=== PATIENT | male | born 1950 | race Caucasian/White ===

== ENCOUNTER 2019-03-01 08:36 | Inpatient (IN) | payer MEDICARE ==
[2019-03-01] MEDS: fentaNYL* 50 MCG/ML 2 ML VIAL (100 MCG VIAL) IV SLOW PU ONE ×2 (08:45→09:00)
--- OUTSIDE RECORDS SUMMARY | 2019-03-01 09:29 | XMS REPORT | Continuity of Care Document ---
:1950 External Reference #:[id number] Author Name David Cm MD Address [address] [place] [address] Care Team Providers Name Role Phone David Cm MD - Family Care Team Information Polysomnographic Technician Medicine Problems Description No Information Available Social History Type Date Description Comments Sex Unknown ETOH Use Denies alcohol use Tobacco Use Start: Unknown End: Unknown Patient is a former smoker Smoking Status Reviewed: 01/11/19 Patient is a former smoker Allergies, Adverse Reactions, Alerts Description No Known Drug Allergies Medications Active Medications SIG Qnty Indications Ordering Provider Date Gabapentin 1 by mouth three Unknown 100mg Capsules times a day Coreg take 1 tablet by Unknown 25mg Tablets mouth twice a day Quinapril HCL 2 by mouth every Unknown 10mg Tablets day Radicava Unknown 30mg/100ML Solution Amitriptyline HCL take 2 tablets by Unknown 50mg mouth at bedtime Tablets Intravenous Unknown Imminoglobulin/Gamma Globulin Riluzole twice daily for Unknown 50mg Tablets ALS Immunizations Description No Information Available Vital Signs Date Vital Result Comment 01/11/2019 2:45pm BP Systolic 130 mmHg BP Diastolic 90 mmHg Heart Rate 86 /min Body Temperature 98.4 F Respiratory Rate 16 /min Height 72.25 inches 6'0.25" Weight 166.00 lb BMI (Body Mass Index) 22.4 kg/m2 Results Description No Information Available Procedures Date Code Description Status 03/07/2009 69013193 Colonoscopy Completed Medical Devices Description No Information Available Encounters Description No Information Available Assessments Date Code Description Provider 01/11/2019 G12.21 Amyotrophic lateral sclerosis David Cm MD 01/11/2019 I10 Essential (primary) hypertension David Cm MD Plan of Treatment 01/11/2019 - David Cm MDG12.21 Amyotrophic lateral [id number] Essential (primary) hypertensionAllComments:Medication Management Patient Understands medications he's taking? Yes No Are there Barriersto Adherence? Yes No Has the patient been asked about herbal supplements and therapies, and OTC meds? Yes No Functional Status Description No Information Available Mental Status Description No Information Available Referrals Refer to Reason for Referral Status Appt Date Panda Perez MD Consult and treat ALS. Referral faxed. LT Created 2018 [address] [place] [address] [place] [address] [phone]
--- OUTSIDE RECORDS SUMMARY | 2019-03-01 09:29 | XMS REPORT | Continuity of Care Document ---
:1950 External Reference #:[id number] Author Name Panda Perez M.D. (transmitted by agent of provider Dione Colon) Address [address] [facility], [place] [address] Care Team Providers Name Role Phone David Cm MD - Family Care Team Information Customer Support Associate [phone] Medicine Problems Description No Information Available Social History Type Date Description Comments Sex Unknown ETOH Use Denies alcohol use ETOH Use Occasionally consumed alcohol in the past Tobacco Use Start: Unknown End: Patient is a former smoker quit in 1984 Unknown Smoking Status Reviewed: 02/12/19 Patient is a former smoker quit in 1984 Allergies, Adverse Reactions, Alerts Description No Known Drug Allergies Medications Active Medications SIG Qnty Indications Ordering Date Provider Accupril daily Unknown 10mg Tablets Coreg 1 by mouth Unknown 25mg Tablets twice a day Gamunex-C infuse 40gm Panda S. 10GM/100ML daily x 2days Earnestine Perez Solution every 3 weeks Riluzole 1 by mouth 60tabs Panda S. 50mg Tablets twice a day Earnestine Perez Vitamin B12 1 by mouth Unknown 100mcg every day Tablets Vitamin B-6 1 by mouth Unknown 50mg three times a Tablets week Vitamin D3 Complete 1,000units a Unknown day Tablets Gabapentin 1 capsule two Unknown 100mg times daily. Capsules Radicava infuse every 14 10daysupply Panda S. 30mg/100ML days, 10 day Earnestine Perez Solution dose, then 14 days off, then repeat Amitriptyline HCL 1 by mouth Unknown 50mg twice a day Tablets Immunizations Description No Information Available Vital Signs Date Vital Result Comment 02/12/2019 9:22am Height 73 inches 6'1" Weight 165.00 lb Heart Rate 84 /min BP Systolic 118 mmHg BP Diastolic 76 mmHg BMI (Body Mass Index) 21.8 kg/m2 Results Description No Information Available Procedures Description No Information Available Medical Devices Description No Information Available Encounters Description No Information Available Assessments Date Code Description Provider 02/12/2019 G12.21 Amyotrophic lateral sclerosis Panda Perez M.D. Plan of Treatment Future Appointment(s):03/30/2019 9:45 am - Panda Perez M.D. at [facility]/12/2019 - Panda Perez M.D.G12.21 Amyotrophic lateral sclerosisFollow up:copy EMG's, lab and spinal fluid results, all MRI's continue radicava, IVIG need to switch to me aspresciber 6-10 weeks Functional Status Description No Information Available Mental Status Description No Information Available Referrals Description No Information Available
--- OUTSIDE RECORDS SUMMARY | 2019-03-01 09:29 | XMS REPORT | Summary of Care ---
:1950 Author Organization [facility] Address [address] [place] [address] Care Team Providers Name Role Phone David Cm MD Primary Care Provider Reason for Referral Radiation Therapy (Routine) Status Reason Specialty Diagnoses / Referred By Contact Referred To Procedures Contact Authorized Radiology Diagnoses Amyotrophic lateral sclerosis Ross Escobarosina I, Procedures EMG with Nerve Conduction [address] [place] [id number] Email: [email or web address] Reason for Visit Radiation Therapy (Routine) Status Reason Specialty Diagnoses / Referred By Contact Referred To Procedures Contact Authorized Radiology Diagnoses Amyotrophic lateral sclerosis Shawn Eufrosina I, Procedures EMG with Nerve Conduction [address] [place] [address] Email: [email or web address] Encounter Details Date Type Department Care Team Description 02/21/2019 Hospital Encounter [facility] Pino Santana Amyotrophic lateral Neurophysiology at [facility] [address] [address] [place] [address] [phone] Allergies No Known Allergiesdocumented as of this encounter (statuses as of 02/25/2019) Medications Medication Sig Dispensed Refills Start Date End Date Status Gabapentin 100 MG Oral Take 100 mg by 0 Active Capsule (NEURONTIN) mouth Two Times Daily Riluzole 50 MG Oral Take 50 mg by 0 Active Tablet (RILUTEK) mouth every 12 (twelve) hours Carvedilol 25 MG Oral Take 25 mg by 0 Active Tablet (COREG) mouth Two times daily with meals Quinapril HCl 10 MG Take 10 mg by 0 Active Oral Tablet (ACCUPRIL) mouth daily Gabapentin 400 MG Oral Take 400 mg by 0 Active Capsule (NEURONTIN) mouth nightly Immune Globulin Inject into the 0 Active (Human) 10 GM/100ML vein once Injection Solution (GAMUNEX-C) Amitriptyline HCl 50 Take 50 mg by 0 Active MG Oral Tablet mouth Two Times (ELAVIL) Daily Edaravone 30 MG/100ML Inject 60 mg into 0 Active Intravenous Solution the vein once Pt (RADICAVA) injects bags at once per pts procotcol documented as of this encounter (statuses as of 02/25/2019) Active Problems Problem Noted Date Amyotrophic lateral sclerosis 02/09/2019 Raynaud's phenomenon with gangrene 02/09/2019 Neuropathy 02/09/2019 Lyme disease 02/09/2019 Mixed hyperlipidemia 02/09/2019 Paresthesia 02/09/2019 documented as of this encounter (statuses as of 02/25/2019) Social History Tobacco Use Types Packs/Day Years Used Date Former Smoker Cigarettes 1 Quit: 1987 Smokeless Tobacco: Never Used Alcohol Use Drinks/Week oz/Week Comments Yes very rarely Alcohol Habits Answer Date Recorded How often do you have a drink containing alcohol? Monthly or less 02/14/2019 How many drinks containing alcohol do you have on a 1 or 2 02/14/2019 typical day when you are drinking? How often do you have six or more drinks on one Never 02/14/2019 occasion? Sex Assigned at Date Recorded Not on file Job Start Date Occupation Industry Not on file Not on file Not on file Travel History Travel Start Travel End No recent travel history available. documented as of this encounter Last Filed Vital Signs Not on filedocumented in this encounter Plan of Treatment Date Type Specialty Care Team Description 04/18/2019 Office Visit Neurology Name Type Priority Associated Diagnoses Order Schedule EMG with Nerve Neurology Routine Amyotrophic lateral As Needed for 1 Conduction sclerosis Occurrences starting 02/21/2019 until 02/21/2019 Health Maintenance Due Date Last Done Comments Hepatitis C Screening (B. 1950 4940-6300) MMR Vaccines (1 of 1 - Standard 1951 series) Varicella Vaccines (1 of 2 - 1951 2-dose childhood series) DTaP,Tdap,and Td Vaccines (1 - 1958 Tdap) Colon Cancer Screening 10 yrs 2001 Zoster Vaccines (1 of 2) 2001 Pneumococcal Vaccine: 65+ Years (1 2016 of 2 - PCV13) Influenza Vaccine 12/05/2018 HIB Vaccines Aged Out No longer eligible based on patient's age to complete this topic Hepatitis A Vaccines Aged Out No longer eligible based on patient's age to complete this topic Hepatitis B Vaccines Aged Out No longer eligible based on patient's age to complete this topic IPV Vaccines Aged Out No longer eligible based on patient's age to complete this topic Pneumococcal Vaccine: Pediatrics Aged Out No longer eligible based on (0 to 5 Years) and At-Risk patient's age to complete this Patients (6 to 64 Years) topic documented as of this encounter Results Not on filedocumented in this encounter Visit Diagnoses Diagnosis Amyotrophic lateral sclerosis documented in this encounter
--- OUTSIDE RECORDS SUMMARY | 2019-03-01 09:29 | XMS REPORT | Continuity of Care Document ---
:1950 Author Organization [facility] Address [address] [facility] [address] [place] [address] Phone Care Team Providers Name Role Phone Jaguar Giordano MD Unavailable Unavailable Allergies, Adverse Reactions, Alerts Substance Reaction Status Criticality No Known Allergies Active No Information Medications Medication Instructions Dosage Effective Dates Status Comments (start - stop) gabapentin 400 mg take 1 capsule by 400 MG - Active !! Check capsule oral route 3 times [employer] every day Pricing: BIN #: [id number] Group #: [id number] Card #: [id number] PCN:FW Coreg 25 mg tablet take 1 tablet by 25 MG - Active !! Check oral route 2 times [employer] every day with food Pricing: BIN #: [id number] Group #: [id number] Card #: [id number] PCN:FW Accupril 20 mg take 1 tablet by 20 MG - Active !! Check tablet oral route every [employer] day Pricing: BIN #: [id number] Group #: [id number] Card #: [id number] PCN:FW Problems Condition Effective Dates (start - Clinical Status Comments stop) Radiculopathy, site unspecified Hypertensive disorder Active Cardiomyopathy Active Procedures Procedure Date No Information Results Test Name Date and Time Measure Units Reference Range Abnormal Flag Status Comments No Information Advance Directives Directive Yes / No Effective Date File Name No Information Encounters Encounter Practice Location Reason(s) Diagnoses Date Provider Providers Description For Visit Copied on Encounter [place] [facility] No Nov- [facility] [address] [facility] [address] [facility], [address] [facility], [address] [id number], [address], . Noé, tel:+01 [place], [phone], [id number] [place] tel:[phone] [place] Adult Radiculopath Oct- [facility]erring [facility], site [address] Provider: Health Disease unspecified [address] [facility], [address], [place], [address] [place], [address] [facility], [address] [facility] [id number], [address], [place] [address], [place], tel:+15 [place], [phone], [id number]. [place] tel:73 tel:[phone] Family History Family Member Diagnosis Age At Onset No Information Immunizations Vaccine Date Status Comments No Information Payers Payer name Insurance type Covered libertarian ID Authorization(s) [facility] [id number] MEDICARE NGS MB [id number] Social History Type Description Quantity Date Captured Comments Alcohol Use Details Unknown Caffeine Use Details Unknown Tobacco Use Status No Information Smoking Status No Information Sex Male Vital Signs Date / Height Weight BMI Pulse Blood Temperature Respiratory Body Head BMI Pulse Inhaled Time: Rate Pressure Rate Surface Circumference percentile [place] Area No Information Chief Complaint And Reason For Visit No Information Reason For Referral Reason For Referral No Information Plan Of Treatment Date Type Action Status No Information History Of Present Illness Encounter Date Complaint History Of Present Illness No Information Functional Status Date Functional Assessment No Information Medications Administered Medication Instructions Dosage Effective Dates (start - stop) Status Comments No Information Instructions Date Instruction Additional Information No Information Assessments Type Assessment Date No Information Goals Health Concern Goal Type Priority Status Date No Information Medical Equipment Description Device [place] Device Identifier Effective Dates (start - stop ) Status No Information Mental Status Date Cognitive Assessment No Information Health Concerns Observation Date No Information Concern Status Date No Information Physical Examination Exam Findings Details No Information
--- OUTSIDE RECORDS SUMMARY | 2019-03-01 09:29 | XMS REPORT | Summary of Care ---
:1950 Author Organization [facility] Address [address] [place] [address] Care Team Providers Name Role Phone David Cm MD Primary Care Provider Reason for Referral Occupational Therapy (Routine) Status Reason Specialty Diagnoses / Referred By Contact Referred To Contact Procedures Authorized Diagnoses Amyotrophic lateral sclerosis Isa Escobar I, Pmr Occupational Procedures Occupational Therapy Therapy [address] [place] [id number] [address] Email: [email or web address] Radiation Therapy (Routine) Status Reason Specialty Diagnoses / Referred By Contact Referred To Procedures Contact Authorized Radiology Diagnoses Amyotrophic lateral sclerosis Isa Escobar I, Procedures EMG with Nerve Conduction [address] [place] [address] Email: [email or web address] Home Health Care (Routine) Status Reason Specialty Diagnoses / Referred By Referred To Procedures Contact Contact Open Specialty Home Health Diagnoses Amyotrophic lateral sclerosis Isa Escobar Services Services MD Radha Required [address] [place] [address] Email: [email or web address] Procedure/Treatment (Routine) Status Reason Specialty Diagnoses / Referred By Contact Referred To Contact Procedures Authorized Diagnoses Amyotrophic lateral sclerosis Neurology Isa Escobar I, Procedures Spirometry (Includes Flow Volume Loop) Provider-Based [facility] [address] [place], [address] [place] [address] [place] [address] Email: [email or web address] Reason for Visit Reason Comments New Patient Encounter Details Date Type Department Care Team Description 02/14/2019 Office Visit [facility] Neurology at Isa Escobar I, Amyotrophic [facility] sclerosis (Primary Center [address]) [address], [address] [place] [address] [place] [phone] [phone] Allergies No Known Allergiesdocumented as of this encounter (statuses as of 02/20/2019) Medications Medication Sig Dispensed Refills Start Date [...] as of this encounter (statuses as of 02/20/2019) Active Problems Problem Noted Date Amyotrophic lateral sclerosis 02/09/2019 Raynaud's phenomenon with gangrene 02/09/2019 Neuropathy 02/09/2019 Lyme disease 02/09/2019 Mixed hyperlipidemia 02/09/2019 Paresthesia 02/09/2019 documented as of this encounter (statuses as of 02/20/2019) Social History Tobacco Use Types Packs/Day Years [...] of this encounter Last Filed Vital Signs Vital Sign Reading Time Taken Comments Blood Pressure 124/73 02/14/2019 8:44 AM EST Pulse 94 02/14/2019 8:44 AM EST Temperature - - Respiratory Rate - - Oxygen Saturation - - Inhaled Oxygen Concentration - - Weight 74.8 kg (164 lb 12.8 oz) 02/14/2019 8:44 AM EST Height 182.9 cm (6') 02/14/2019 8:44 AM EST Body Mass Index 22.35 02/14/2019 8:44 AM EST documented in this encounter Patient Instructions Patient InstructionsIsa Escobar MD - 02/14/2019 8:30 AM ESTEMG as urgent study Referral to Home Care for PT, OT, Home health aide, safety evaluation Referral to Occupational Therapy for Power Mobility Device Return 1 month 12: 10 PM EST documented in this encounter Progress Notes Isa Escobar MD - 02/14/2019 8:30 AM EST ALS Multidisciplinary Clinic 68 year old male presents for initial evaluation. He came in alone.The patient was referred by Kim Zhang MD ( Neurologist from [facility] ) and PCP David Cm ( [place], [place]). He recently moved from [place], [place] to [place], [place]. He carries a diagnosis of ALS, CIDP and Lyme disease, and either completed or currently receiving treatment for all diagnosis. He has continued to progress with motor weakness in 4 limbs, worse on right foot. He has no bulbar impairment and no respiratory issues. Clinical onset of symptoms Allow me to summarize his history for my record. Extensive records were reviewed. At 67 years of age (March 2017 ), the patient presented with right leg weakness with right foot tripping and dragging. He denies low back pain. This was preceded with severe burning pain tingling numbness sensation that started in the right foot without low back pain or lumbar radicular pain. Soon after he developed severe painful paresthesias in both feet, right worse than left, for which He sawa vascular surgeon (due to feet swelling) who told him his problem was not vascular but "neurological". He established care with Dr. Juan Pablo Zhang in March 2017. He was treated with Gabapentin which afforded significant relief and the dysesthesias improved considerably with Gabepentin. Right foot weakness that was detected on exam. He continued to follow up with Dr. Zhang for a year without much change in symptoms during which time he had an MRI of lumbar spine endorsed to be normal. He had EMG Nerve Conduction Study from Apr 10 ( "sensory neuropathy in upper limbs" ) and Apr 27, 2018 ( active Right L5 S1 and chronic bilateral L5 S1 Radiculopathy ). He was diagnosed with "peripheralneuropathy likely alcohol- related" with long history of Etoh abuse ( alcohol use was described as " 1bottle of wine daily" ). He reports discontinuation of alcohol use in 2016. Exam was described as "wasting and fasciculations in right calf and right anterior compartment, right medial gastrocnemius and right tibialis anterior, with diffuse hyporeflexia, decreased pinprick in both feet, decreased vibratory sense. He was diagnosed with Peripheral Neuropathy and Acute Right L5-S1 Lumbosacral radiculopathy and Chronic bilateral L5 S1 Radiculopathy by Dr. Zhang. At this point, he was seen by neurosurgery ( not able to locate this note ) which he endorsed as "surgery was not likely to be helpful". Symptoms of lower extremity weakness progressed after this visit and he returned to Dr. Zhang in June 2018. Exam was notable for wasting of right medial gastrocnemius and right tibialis anterior muscles, with diminished pinprick sensation in both feet, impaired vibratory sense and diffuse hyporeflexia. The dose of Gabapentin was increased to 300 mg-300 mg-400 mg with significant relief. Repeat EMG September 22, [address] Zhang report: Right peroneal nerve slowed conduction velocity, Right tibial nerve temporal dispersion, prolonged F waves with multiple A waves, relative sural sparing,no conduction block in ulnar nerves, fibrillations and positive sharp wves present only in distal muscles of right leg. I personally reviewed the tables (DML upper limbs 2.9 - 3.9 msec, DML lower limbs3.8 - 5.1 msec. CV upper limbs 49-57 m/sec, CV lower limbs 30 - 44 m/sec ) Right tibial and Right Peroneal low amplitudes ( 1 mV ) with temporal dispersion. September 29, [address] Randall Real, Neuromuscular Director, for second opinion. He could no longer manage long hikes and started using a cane to ambulate. Both feet were numb although hands felt strong. October 2018, he had diffuse muscle twitches and weakness was describe to spread to all limbs ( exam showed 4's ). Repeat EMG ( September 2018, Dr. Zhang ) showed slowed conduction velocity, temporal dispersion, prolonged F waves, and a mixed axonal demyelinating polyneuropathy. Spinal tap was performed, reported to have albuminocytologic dissociation with elevated CSF protein. November 2018 Dr. Real exam was notable for right arm atrophy. The diagnosis of ALS was made by Dr. Real. October 2018 he also saw a Dr. [place] ( his sister's Lyme disease doctor ). The diagnosis of Chronic Lyme Disease was made by Dr. Dubois. He was treated with oral Doxycycline and 6 weeks of Ciprofloxacin IV which he completed by end of November,. November 2018 he followed up with Dr. Zhang. 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 Zhang. He was treated with IVIG for 5 days. By end of treatment he was having multiple falls and could not ambulate with a cane and required a walker. He was started on IV Edaravone in November, received 4th roundof treatment without significant fatigue or headache. He reports mild eczema or dry skin he attributes to Edaravone. January 2019, he reports the right foot was paralyzed despite above treatments received. He has been using a walker since November 2018 and reports numerous falls with increasing right upper and right lower limb weakness. He lives alone. The last few days in February 2019, he has difficulty with his underwriting support manager, to the degree that he is unable to grab a pillow for example. He continues with left arm fasciculations and some weakness in the left lower extremity ( which he gauged was affected "10%- 20% ). Other testing: October 2018 CSF from October 2018 showed no WBC, 3 RBC, Glucose 52 and elevated Protein 66 ( cut off 45 ). Serum Lyme IgG/IgM AB elevated. Lyme PHOTO EQUIPMENT TECHNICIAN infection IgG was reactive, followed with serum sample reflexed for sampling to determine PHOTO EQUIPMENT TECHNICIAN infection. CSF positive lyme index ( 1.79 With normal range 0.01 - 0.89 ) was reported and led to antibiotic treatment outlined below. Labs Jan 2018 ESR, CRP, Sjogren's antibody, B12 normal range Labs October 2018 GQ1B AB negative, GM1 antibody negative Neuroimaging studies: MRI cervical spine September 10, 2018 reportedly showed cervical spondylosis, no cord signal abnormalities. MRI Thoracic Spine showed scoliosis. MRI brain Dec 05, 2018 showed non-specific [id number] signal focus in right frontal subcortical region. Treatments received: Riluzole 50 mg twice daily started in October 2018, continued Edaravone infusions started in Nov 2018, continued. IVIG for 5 days started November 2018, followed with maintenance treatment 2 days a week, last received Feb.08 and 2018. Oral Doxycycline and 6 weeks of Ciprofloxacin IV completed by end of November,. 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 Additional history include idiopathic cardiomyopathy and fall off ladder in 2002 with right calcaneal heel fracture, Chronic Lyme disease with tick exposure and positive serum TRISH ( but not treated due to absence of symptoms ) . CSF positive lyme index ( 1.79 ) ALS FRSR SPEECH 4 Normal speech process 3 Detectable speech disturbance 2 Intelligible with repeating 1 Speech combined with non-vocal communication 0 Loss of useful speech SALIVATION 4 Normal 3 Slight but definite excess of saliva in mouth; may have night time drooling 2 Moderately excessive saliva; may have minimal drooling 1 Marked excess of saliva with some drooling 0 Marked drooling SWALLOWING 4 Normal eating habits 3 Early eating problems occasional choking 2 Dietary consistency changes 1 Needs supplemental tube feeding 0 NPO HANDWRITING 4 Normal 3 Slow or sloppy: all words are legible 2 Not all words are legible 1 No words are legible, but can still underwriting support manager pen 0 Unable to underwriting support manager pen CUTTING FOOD AND HANDLING UTENSILS: Patients without gastrostomy 4 Normal 3 Somewhat slow and clumsy, but no help needed 2 Can cut most foods (> 50%), although slow and clumsy; some help needed 1 Food must be cut by someone, but can still feed slowly 0 Needs to be fed DRESSING AND HYGIENE 4 Normal function 3 Independent; Can complete self-care with effort or decreased efficiency 2 Intermittent assistance or substitute methods 1 Needs attendant for self-care 0 Total dependence TURNING IN BED AND ADJUSTING BED CLOTHES 4 Normal function 3 Somewhat slow and clumsy, but no help needed 2 Can turn alone, or adjust sheets, but with great difficulty 1 Can initiate, but not turn or adjust sheets alone 0 Helpless WALKING 4 Normal 3 Early ambulation difficulties 2 Walks with assistance ( walker ) 1 Non-ambulatory functional movement only 0 No purposeful leg movement CLIMBING STAIRS 4 Normal 3 Slow 2 Mild unsteadiness or fatigue 1 Needs assistance 0 Cannot do DYSPNOEA 4 None 3 Occurs when walking 2 Occurs with one or more of the following: eating, bathing, dressing 1 Occurs at rest: difficulty breathing when either sitting or lying 0 Significant difficulty: considering using mechanical respiratory support ORTHOPNOEA 4 None 3 Some difficulty sleeping at night due to shortness of breath, does not routinely use more than twopillows 2 Needs extra pillows in order to sleep (more than two) 1 Can only sleep sitting up 0 Unable to sleep without mechanical assistance RESPIRATORY INSUFFICIENCY 4 None 3 Intermittent use of BiPAP 2 Continuous use of BiPAP during the night 1 Continuous use of BiPAP during day & night 0 Invasive mechanical ventilation by intubation or tracheostomy Bulbar domain=12 Motor domain=17 Respiratory domain=12 Revised ALS Functional Rating Scale (ALSFRS-R) total score=41/48 Pseudobulbar Affect He denies inappropriate laughing or inappropriate crying Constipation He has consistent bowel movement of adequate volume. Patient denies dysuria, urinary hesitancy or urinary retention, but has urgency to urinate. Familly history of ALS: Absent Family history of Dementia: Absent Family history of use of assistive device for ambulation Absent He has 2 sons that live out of state. His is in petroleum terminal plant operator care facility with AD the last 3 years. Past Medical History: Diagnosis Date Hypertension No past surgical history on file. No family history on file. Social History Socioeconomic History Marital status: Spouse name: None Number of children: None Years of education: None Highest education level: None Occupational History None Social Needs Financial resource strain: None Food insecurity: Worry: None Inability: None Transportation needs: Medical: None Non-medical: None Tobacco Use Smoking status: Former Smoker Packs/day: 1.00 Types: Cigarettes Last attempt to quit: 1987 Years since quittin.9 Smokeless tobacco: Never Used Substance and Sexual Activity Alcohol use: Yes Frequency: Monthly or less Drinks per session: 1 or 2 Binge frequency: Never Comment: very rarely Drug use: Not Currently Types: Marijuana Comment: has smoked marijuana in past Sexual activity: Not Currently Lifestyle Physical activity: Days per week: None Minutes per session: None Stress: None Relationships Social connections: Talks on phone: None Gets together: None Attends rastafarian service: None Active member of club or organization: None Attends meetings of clubs or organizations: None Relationship status: None Intimate partner violence: Fear of current or ex partner: None Emotionally abused: None Physically abused: None Forced sexual activity: None Other Topics Concern None Social History Narrative None Current Outpatient Medications Medication Sig Dispense Refill Carvedilol 25 MG Oral Tablet (COREG) Take 25 mg by mouth Two times daily with meals Gabapentin 100 MG Oral Capsule (NEURONTIN) Take 300 mg by mouth Two Times Daily Gabapentin 400 MG Oral Capsule (NEURONTIN) Take 400 mg by mouth nightly Immune Globulin (Human) 10 GM/100ML Injection Solution (GAMUNEX-C) Inject into the vein once Quinapril HCl 10 MG Oral Tablet (ACCUPRIL) Take 10 mg by mouth daily Riluzole 50 MG Oral Tablet (RILUTEK) Take 50 mg by mouth every 12 (twelve ) hours No current facility-administered medications for this visit. ALLERGY:No Known Allergies ROS: 10 Point review of systems done and pertinent negative noted in HPI. GENERAL EXAM: Visit Vitals Ht 1.829 m (6') Wt 74.8 kg (164 lb 12.8 oz) BMI 22.35 kg/m PHYSICAL EXAM: 1) CONSTITUTIONAL: alert, appears stated age and cooperative The patient's general appearance is thin. 2) HEENT: Head is atraumatic. The oropharynx is moist with no leukoplakia on the tongue. Hearing is intact to finger rubs. 3) RESPIRATORY: Assessment of the patient's respiratory effort reveals no use of accessory neck muscles. 4) CARDIAC: Auscultation of heart sounds reveal normal rate and regular rhythm. There is no lower extremity edema. 5) PSYCHIATRIC:The patient's present mood is calm and affect is observed as normal. 6)SKIN:The skin of demonstrates no ecchymoses, no petechiae, some eczematous rash in forearms. NEUROLOGICAL EXAMINATION: today FVC SITTIN % predicted FVC SUPINE: 116 % predicted WEIGHT: 164 lbs. Mental Status:Alert, oriented, thought content appropriate Cranial Nerves: Fundus: no papilledema. VFF, EOMI, PERRL. No facial asymmetry. [place], pterygoid strength, orbicularis oculi and alejandra strength intact Hearing intact to finger rubs. Tongue: Movements are intact. There is no atrophy and no fasciculations. Speech: Intact fluency, repetition and comprehension. MOTOR EXAM: Bulk: atrophy in the right arm and right leg. Fasciculations:fasciculations involving the upper extremities Muscle tone is flaccid weakness in right upper and right lower limbs Deltoid Biceps Triceps WE WF FE FF IO APB Shoulder Flexion Right 3 4 4 5 5 5 5 3 3 3 Left 4 5 5 5 5 5 5 5 5 4 Hip flexion Quads TA Ankle evertors Ankle invertors Gastroc Hamstrings Hip Abduction Hip Adduction Right 3 3 1 0 0 3 5 Left 4 4 3 3 3 5 5 Sensory Right upper Left upper Pinprick intact intact Right lower Left lower Pinprick Diminished from toes to ankle Diminished from toes to ankle Vibratory Sense Decreased >12 sec, right great toe, ankle 6 seconds right great toe, ankle Proprioception intact intact Reflexes: Right Left Biceps 4 2 BR 4 2 Triceps 2 2 Patellar 2 1 Achilles 4 1 Babinski Absent Absent Right Left Ignacio Sign absent absent Crossed Adductor Reflex absent absent Palmomental Reflex absent absent Jaw jerk: normal CEREBELLAR: no tremor GAIT: slow, unsteady, used right AFO, right foot drags Assessment and Plan: Limb- onset ALS vs CIDP 68 year old male with progressive motor weakness and wasting, predominant lower motor neuron involvement, with 2 year onset and accelerated decline the past 6 months. There is impending loss of ambulation starting with use of cane in September 2018, and walker the past 2 weeks. There is spread of weakness from right leg to right arm, and essentially quadriparesis, despite numerous treatments pursued for a variety of diagnoses over the last 4 months ( Riluzole, Edaravone , IVIG, IV Ciprofloxacin ) most ofwhich have continued ( Riluzole, Edaravone, IVIG ). The diagnosis is complicated with initial sensory changes that pre-dated motor weakness in the rightfoot. Exam is also notable for sensory findings. Review of EMGs from September 2018 however does not seemconvincing for a primary demyelinating process. There is evidence both clinically and electrophysiologically of a progressive process. At this point I had an extensive discussion with Mr. Guerrero, how ALS is diagnosed after exclusion ofmimics, which in this case requires a repeat EMG. We agreed on the following: EMG as urgent study scheduled 02/21/[address] Santana Referral to Home Care for PT, OT, Home health aide, safety evaluation Referral to Occupational Therapy for Power Mobility Device Return 1 month - Ambulation and safety issues We discussed PT and OT recommendations Face to Face Evaluation for Power Mobility Device Patient is not ambulatory and cannot independently propel an optimally configured manual wheelchair.She requires a power wheelchair for independent mobility. Power seating is necessary as she cannot independently reposition or weight shift. Symptoms and diagnosis that limit ambulation: progressive weakness in bilateral lower extremities Diagnoses responsible for these symptoms: ALS Medications or other treatments for these symptoms: Riluzole, Edaravone Progression of ambulation difficulty over time:yes How far can the patient walk without stopping: Unable Pace of ambulation: Not applicable What ambulatory assistance does the patient presently use: Unsafe with or without ambulatory devices Specific conditions that prevent patient from propelling a manual wheelchair Upper extremity weakness Upper extremity fatigue Imbalance What has changed to now require the use of a power mobility device: Disease progression Ability to stand up from a seated position without assistance: unable to do the following Push-up Pull-up Assisted Description of the home setting and ability to perform mobility related activities of daily living (toileting, cooking, access to sink) Vendor to supply measurements of home access points Please describe why a scooter will not meet patients need: Scooter would not supply seating and positioning stability (Generally, turning radius too large for home use) Patient requires power chair (tilt, recline, elevating leg rests) -patient at high risk for skin breakdown: Tilt: Unable to perform functional weight shift, Spasticity, impaired trunk control Recline: Respiratory compromise, requires open hip angle Power elevating leg rest: Lower extremity edema, allows for passive ROM to reduce spasticity As treating physician, I concur with the associated letter of medical necessary for a power mobilitydevice. -We also discussed the need for more home services, which we will help with as much as possible. Today the patient had a [id number] assessment for amyotrophic lateral sclerosis (ALS), which is the primary reason for home health care. I certify that based on clinical findings, Physical therapy, Occupational therapy, and a Home primary care provider are medically necessary home health services. Clinical findings that support the need for home health services include four limb weaknesses, unable to stand, transfer, or walk without assistance, bilateral upper limb weakness, difficulty putting on clothes independently and performing activities of daily living. Further, I certify that the clinical findings support this patient is homebound because absences from home require considerable and taxing effort and are for medical reasons, infrequent, or of short duration for other reasons because the patient is unable to walk. Furthermore, discussion on advance care plan including end of life options and establishment of surrogate decision maker was done. Advance directives was encouraged and assistance offered to ensure that this is in place. Advance directives are not yet in place. The patient did not wish or was not able to name a surrogate decision maker at the moment or provide an advance care plan. He stated he is in contact with his 2sons who live out of state and are aware of his medical condition. We discussed ongoing research and the patient expressed interest in participation. Research coordinator Ramses King will be in contact with patient. Total time spent face to face with the patient was 60 minutes and more than half of that time was spent in counselling, and devoted to a detailed discussion regarding ALS disease progression, potentialALS mimics, ALS approved and experimental treatments. . The patient was seen by members of the ALS clinic team, including the Physical and Occupational Therapists, Respiratory Therapist, ALS clinic Nurse, ALS clinical lab scientist, ALS health care social worker, ALS blocker and polisher. We have scheduled the patient for follow up within a month, or soon after EMG is completed. Isa Escobar MD documented in this encounter Plan of Treatment Date Type Specialty Care Team Description 02/21/2019 Appointment Neurology Lina Santana MD [address] [place] [address] [phone] 04/18/2019 Office Visit Neurology Name Type Priority Associated Diagnoses Date/Time Spirometry (Includes PFT Routine Amyotrophic lateral 02/14/2019 9:01 AM Flow Volume Loop) sclerosis EST Name Type Priority Associated Diagnoses Order Schedule EMG with Nerve Neurology Routine Amyotrophic lateral 1 Occurrences starting Conduction sclerosis 02/14/2019 until 02/15/2020 Name Type Priority Associated Diagnoses Order Schedule Ambulatory referral Outpatient Referral Routine Amyotrophic lateral Ordered : to Home Health sclerosis 02/14/2019 Health Maintenance Due Date Last Done Comments Hepatitis C Screening (B. 1950 [id number]) MMR Vaccines (1 of 1 - Standard [...] Years) topic documented as of this encounter Procedures Procedure Name Priority Date/Time Associated Diagnosis Comments SPIROMETRY (INCLUDES Routine 02/14/2019 9:01 AM Amyotrophic lateral FLOW VOLUME LOOP) EST sclerosis documented in this encounter Results Not on filedocumented in this encounter Visit Diagnoses Diagnosis Amyotrophic lateral sclerosis - Primary documented in this encounter
[2019-03-01] MEDS ORDERED: fentaNYL* 50 MCG/ML 2 ML VIAL (100 MCG VIAL) IV SLOW PU ONE ×2 (10:45→11:44)
--- NOTE | 2019-03-01 11:24 | ED ---
Lower Extremity - HPI Summary HPI Summary: This patient is a 68-year-old male with a recent diagnosis of ALS as of October of this year presenting to the ED after a fall this morning. Patient states he stepped out of bed onto his right foot, believes he may have caught the edge of the rug with his toe and twisted his ankle. He endorsed immediate pain to the area and fell. He was able to call the ambulance who transported him here to the ED. He is endorsing a 10/10 pain. He denies any pain otherwise. He has a PICC line for his ALS infusions and also takes medications orally for ALS, HTN and HCL. - History of Current Complaint Chief Complaint: EDExtremityLower Stated Complaint: FALL PER PT DAUGHTER Time Seen by Provider: 03/01/19 08:38 Hx Obtained From: Patient, Family/Research Home Economist Mechanism Of Injury: Twisted, Other - fall Onset of Pain: Immediate Onset/Duration: Hours Severity Initially: Severe Severity Currently: Severe Pain Intensity: 10 Pain Scale Used: 0-10 Numeric Timing: Constant Location: Is Discrete @ - right lower ext Character Of Pain: Aching Associated Signs And Symptoms: Positive: Bruising - and deformity. Negative: Swelling, Redness Aggravating Factor(s): Standing Alleviating Factor(s): Rest, Elevation Able to Bear Weight: No - Allergies/Home Medications Allergies/Adverse Reactions: Allergies Allergy/AdvReac Type Severity Reaction Status Date / Time No Known Allergies Allergy Verified 03/01/19 08:44 Home Medications: Home Medications Amitriptyline TAB* [Elavil TAB*] 100 mg PO QAM 03/01/19 [History Confirmed 03/01] Carvedilol TAB NF [Coreg TAB NF] 25 mg PO Q12H 03/01/19 [History Confirmed 03/01] Edaravone (Nf) IV [Radicava] 30 mg IV SEE INSTRUCTIONS 03/01/19 [History Confirmed 03/01/19] Gabapentin CAP(*) [Neurontin 100 mg CAP(*)] 100 mg PO BID 03/01/19 [History Confirmed 03/01/19] Ivig Iv Immunoglobulin 1 iv.fluid IV SEE INSTRUCTIONS 03/01/19 [History Confirmed 03/01/19] Quinapril (NF) [Accupril (NF)] 10 mg PO DAILY 03/01/19 [History Confirmed ] Riluzole (NF) [Riluzole (Nf)] 50 mg PO BID 03/01/19 [History Confirmed 03/01/19] PMH/Surg Hx/FS Hx/Imm Hx Previously Healthy: Yes - Immunization History Hx Pertussis Vaccination: No Immunizations Up to Date: Yes Infectious Disease History: No Infectious Disease History: Denies: Traveled Outside the [place] in Last 30 Days - Social History Occupation: Unemployed Lives: Alone Alcohol Use: None Hx Substance Use: No Substance Use Type: Reports: None Hx Tobacco Use: No Smoking Status (MU): Never Smoked Tobacco Review of Systems Negative: Fever, Chills, Fatigue, Skin Diaphoresis Negative: Palpitations, Chest Pain Negative: Shortness Of Breath, Cough Genitourinary: Negative Positive: no symptoms reported, see HPI Positive: Arthralgia Positive: Bruising - right lower ext Neurological: Negative All Other Systems Reviewed And Are Negative: Yes Physical Exam Triage Information Reviewed: Yes Vital Signs On Initial Exam: Initial Vitals Pulse BP Pulse Ox 87 174/94 97 03/01/19 08:42 03/01/19 08:42 03/01/19 08:42 Vital Signs Reviewed: Yes Appearance: Positive: Well-Appearing, Well-Nourished, Pain Distress Skin: Positive: Warm, Skin Color Reflects Adequate Perfusion Head/Face: Positive: Normal Head/Face Inspection Eyes: Positive: EOMI, Conjunctiva Clear Neck: Positive: Supple, No Lymphadenopathy Respiratory/Lung Sounds: Positive: Clear to Auscultation, Breath Sounds Present Cardiovascular: Positive: RRR, Pulses are Symmetrical in both Upper and Lower Extremities. Negative: Leg Edema Left, Leg Edema Right Musculoskeletal: Positive: Pain @ - right lower extremity with deformity Neurological: Positive: Speech Normal Psychiatric: Positive: Normal, Affect/Mood Appropriate Procedures - Sedation Patient Received Moderate/Deep Sedation with Procedure: No Diagnostics - Vital Signs Vital Signs Temp Pulse Resp BP Pulse Ox 03/01/19 10:51 16 03/01/19 09:13 78 146/92 97 03/01/19 09:00 81 22 97 03/01/19 08:45 98.2 F 83 18 174/94 95 03/01/19 08:42 87 174/94 97 - Laboratory Lab Statement: Any lab studies that have been ordered have been reviewed, and results considered in the medical decision making process. Lower Extremity Course/Dx - Course Course Of Treatment: On arrival into the ED, the patient is endorsing a 10/10 pain to the right lower extremity with deformity. No ecchymosis noted on arrival. Pulses +2 intact bilaterally both posterior tibial and pedal. Patient is given 100 g fentanyl with good relief. Right lower leg x-ray impression shows comminuted displease cingulate fractures of the distal tibia and fibula. Discussed case with Dr. Osorio who suggests long leg splint and admission. Orthopedic GABBY Banda to see pt in the ED to aid with splint application. Due to ALS diagnosis and scheduled for surgery on Tuesday, hospitalist consult was requested. - Diagnoses Provider Diagnoses: Closed fracture of distal end of right fibula and tibia - Physician Notifications Discussed Care Of Patient With: Kailash Elliott Instructed by Provider To: Admit As Inpatient Discharge ED - Sign-Out/Discharge Documenting (check all that apply): Patient Departure All imaging exams completed and their final reports reviewed: No - Discharge Plan Condition: Fair Disposition: ADMITTED TO [facility] - Billing Disposition and Condition Condition: FAIR Disposition: Admitted to [facility] - Attestation Statements Provider Attestation: I have seen the patient with the GARRETT and agree with the plan and documentation below except as noted: briefly 68-year-old male with ALS found to have spiral tibial fracture. Admit to medicine Clari Steele MD
[2019-03-01] MEDS ORDERED: fentaNYL* 50 MCG/ML 2 ML VIAL (100 MCG VIAL) ONE (11:45)
--- NOTE | 2019-03-01 12:14 | CONSULT ---
Consult Consult: Patient Name: Terrance Guerrero : 1950 HPI: The pt is a 68 y/o male who presented to the ER today after sustaining an injury to his right leg this morning. The pt states that he got out of bed and tripped and fell. H does not know what caused him to trip. He states that he had severe pain and was taken to the ER today. He does admit to having been recently diagnosed with ALS. The pt denies any chest pain, SOB, nausea or vomiting. 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 Social history: Lives at home. Currently has his adult son and daughter staying with him. ROS: General: Denies f/c/ns HEENT: negative Cardio: Denies chest pain or palpitations Pulm: Denies SOB, chronic cough. MSK: Admits to right leg pain Neuro: admits to ALS. Physical exam: Vital Signs Temp 98.2 F 03/01/19 08:45 Pulse 108 03/01/19 13:00 Resp 18 03/01/19 11:45 BP 117/75 03/01/19 13:13 Pulse Ox 93 03/01/19 13:00 General: Pt is alert and oriented x 3. Appropriate mood and affect. HEENT: normocephalic, atraumatic, hearing and vision are grossly intact Cardio: regular rate and rhythm, Normal S1 and S2. No murmur, rubs or gallops. Pulm: Lungs are clear to auscultation bilaterally. No wheezes or rales MSK:RLE: Inspection reveals no break in the skin, no discharge. The distal aspect of the lower leg has swelling present most noticeably on the medial aspect. The pt does have a 2+ DP pulse. He is able to wiggle toes and can feel light touch in each of the digits. Imaging: Xrays of the ankle and the lower extremity where obtained and reviewed today. There is an oblique comminuted fracture of the distal right tibia at the junction of the diaphysis and metaphysis. There is also an oblique comminuted fracture of the distal fibula at the junction of the diaphysis and metaphysis. ASSESSMENT: Right distal tibia and fibula fracture, comminuted and displaced. PLAN: The pt will be admitted to the hospitalists service for medical optimization Long leg splint was applied to the pt today. Continue with current pain medication The pt will be taken to the OR on Tuesday for surgical reduction and fixation of the distal tibia and fibula fractures.
[2019-03-01] MEDS ORDERED: Ondansetron INJ* 2 MG/ML VIAL IV PRN (12:47)
[2019-03-01] MEDS: oxyCODONE TAB* 5 MG TAB PO PRN ×2 (14:53→19:34)
--- NOTE | 2019-03-01 14:53 | HP ---
CC: Dr. David Cm; Dr. Marcello Sanford* ADMISSION HISTORY AND PHYSICAL: DATE OF ADMISSION: 03/01/19 PRIMARY CARE PROVIDER: Dr. David Cm. MY ATTENDING WHILE IN THE HOSPITAL: Dr. Marcello Sanford* (dictated by GABBY Canales). CHIEF COMPLAINT: Fall, right ankle pain. HISTORY OF PRESENT ILLNESS: Mr. Guerrero is a 68-year-old male with past medical history significant for a recent diagnosis of ALS as well as idiopathic sensory neuropathy and a history of idiopathic cardiomyopathy possibly in association with an ehrlichiosis infection, which was first identified in 2001 and had a normal EF on his most recent echocardiogram, who presented to the emergency department after this morning. He was feeling in his normal state of health, although he felt that his health has been deteriorating incrementally related to his ALS and he has had multiple falls. He has not had any previous falls with injury or fracture. He does usually use a walker, and today he was using a walker and felt as if he could not lift his right leg and then fell and felt immediate pain in his ankle. The patient had chronic numbness in his bilateral feet from his polyneuropathy, but no other increased numbness or tingling. The patient again has had no recent viral infections, no pneumonias, no other recent illnesses. The patient's family is up for [place], but none of them are sick either. The patient has had no recent changes to his medication except for 2 months ago had been started on treatment for his ALS. The patient did not pass out. The patient did not feel as if he was going to pass out. In the emergency department, the patient was found to have a comminuted fracture of his tibia and fibula of his right ankle, which was splinted. Due to concern for the patient being unable to care for himself at home, we were asked to evaluate the patient for admission to the hospital. PAST MEDICAL HISTORY: ALS, hypertension, hyperlipidemia, idiopathic cardiomyopathy, ehrlichiosis requiring ICU stay, idiopathic sensory polyneuropathy. PAST SURGICAL HISTORY: None. MEDICATIONS: 1. Radicava 30 mg IV for 10 days and off for 14 days. 2. Riluzole 50 mg p.o. b.i.d. 3. Amitriptyline 100 mg p.o. b.i.d. 4. Accupril 10 mg p.o. daily. 5. Carvedilol 25 mg p.o. q.12 hours. 6. Gabapentin 100 mg p.o. daily. 7. IVIG 2 days every 3 weeks, next dose scheduled for 03/05/19 and 03/06/19. ALLERGIES: No known drug allergies. FAMILY HISTORY: The patient's father of old age at 94. The patient's mother of uterine cancer at 89. The patient's sister is alive, has thyroid disease and a diagnosis of what she tested to be chronic Lyme. SOCIAL HISTORY: The patient smoked briefly, quit in 1984. The patient used to abuse alcohol, but now only drinks very rarely. The patient denies illicit drug use. The patient used to work as an auto body repair estimator. The patient is . His has Alzheimer dementia and is in a usp. The patient has 2 children who are in town at this time, whose names are Xenia and Tremayne. The patient's surrogate decision maker will be his daughter Xenia Guerrero. REVIEW OF SYSTEMS: A 10-point review of systems was reviewed and is negative except as above in the HPI. PHYSICAL EXAMINATION GENERAL: The patient is a 68-year-old male who appears stated age, sitting comfortably in bed, in no acute distress. VITAL SIGNS: At the time of evaluation, temperature 98.2, pulse rate 111, respiratory rate 18, oxygen saturation 94% on room air, blood pressure 161/107. HEENT: Head: Normocephalic, atraumatic. Sclerae anicteric. No conjunctival injection. Nasal mucosa moist. Oral mucosa moist. No pharyngeal erythema, discharge, or exudate. NECK: Supple, nontender. No lymphadenopathy. No carotid bruits auscultated. No JVD. RESPIRATORY: Clear to auscultation bilaterally. No wheezes, rales, or rhonchi. Good air exchange bilaterally. CARDIAC: Regular rate and rhythm. No clicks, murmurs, gallops, or rubs. Pulses 2+ in the dorsalis pedis, posterior tibialis, and radial areas. ABDOMEN: Soft, nontender, nondistended. Bowel sounds present and normoactive in all 4 quadrants. No hepatosplenomegaly. No abdominal bruits auscultated. No hepatojugular reflux. GENITOURINARY: No suprapubic or CVA tenderness. SKIN: Clean, dry, and intact. No rashes. NEUROLOGIC: Fasciculation in bilateral shoulders, relatively flat affect, diffusely weak. Reflexes not tested. Cranial nerves II through XII intact. PSYCHIATRIC: Pleasant and cooperative. DIAGNOSTIC STUDIES/LAB DATA: Laboratory data not available at this time. Studies: Ankle x-ray read as comminuted, displaced, angulated fractures of the distal tibia and fibula at the junction of the distal diaphysis and metaphysis. Lower extremity x-ray read as the same. ASSESSMENT AND PLAN: Impression: Mr. Guerrero is a 68-year-old male with past medical history significant for a history of amyotrophic lateral sclerosis, history of idiopathic cardiomyopathy, most recent positive ehrlichiosis, most recent EF 60%, idiopathic neuropathy, as well as hypertension and hyperlipidemia , who presents to the emergency department with a mechanical fall related to his amyotrophic lateral sclerosis, and the patient was admitted to the hospital for preoperative optimization as well as physical therapy and occupational therapy. 1. Comminuted tibia/fibula fracture of the left ankle due to mechanical fall. The patient has been discussed with Orthopedics. He has been placed in a splint and will have surgery on Tuesday. The patient has a history of nonischemic cardiomyopathy, but has no signs of heart failure at this time; however, the patient is unable to take care of himself at home at this time. The patient was admitted to the hospital. The patient was on physical therapy and occupational therapy. The patient will be nonweightbearing on his right leg. The patient will have pain control. The patient will have an echocardiogram due to a history of nonischemic cardiomyopathy of unclear cause to ensure that this disease has not recurred. We are able to clarify the patient's METs due to his amyotrophic lateral sclerosis. If the patient's EF is normal, no further cardiac testing will be indicated. 2. Amyotrophic lateral sclerosis. Continue the patient's riluzole and Radicava. The patient will supply and self-administer these medications. Follow up at outpatient with Dr. Perez. There is some concern that the patient's amyotrophic lateral sclerosis may have represented chronic inflammatory demyelinating polyneuropathy at some point. The patient should follow up outpatient with Dr. Perez for discussion of possible further treatment as he is concerned about Lyme disease. Continue IVIG on 03/05/19 and 03/06/19. 3. Hypertension. Continue the patient's enalapril and carvedilol. Hold enalapril perioperatively if allowable by the patient's blood pressure. 4. DVT prophylaxis: Lovenox subcu. 5. FEN: The patient will have a regular unrestricted diet, be n.p.o. after midnight on the day before surgery. TIME SPENT: Approximately 60 minutes spent on the admission of this patient, 30 of which was spent [id number] with the patient obtaining history and physical and discussing treatment plan. This plan has been discussed with my attending Dr. Marcello Sanford and he is in agreement. GABBY CANALES [id number]/[facility] #: [id number] YURI
[2019-03-01] MEDS: Carvedilol TAB* 25 MG PO SCH ×2 (15:13→21:46)
[2019-03-01] MEDS: Enoxaparin(*) 40 MG/0.4 ML SYR SUBCUT SCH (15:14)
--- NOTE | 2019-03-01 16:16 | ECHO ---
*[facility]* [place] [address] Fax #: [phone] Transthoracic Echocardiogram Patient: Terrance Guerrero : 1950 Study Date: 03/01/2019 Age: 68 Gender: M HR: 100 bpm Height: 73 in /185.4 cm BSA: 2.11 m^2 Weight: 189.6 lb /86.2 kg BMI: 25.1 kg/m^2 *Motor Tune Up Specialist: * Renetta He [facility] *Referring Physician: * Shubham Verma *Reading Physician: * Josh Xiao MD Indications: Congestive Heart Failure. History: PMH: Cardiomyopathy. Risk factors: Hypertension. Dyslipidemia. Conclusions Summary: Left ventricle: The cavity size is mildly reduced. Wall thickness is mildly increased. Systolic function is normal. The estimated ejection fraction is 55-60%. Wall motion overall hyperdynamic but cannot exclude a small area of subtle mid to distal septal hypokinesis versus artifact. Doppler parameters are consistent with abnormal left ventricular relaxation (grade 1 diastolic dysfunction). Study data: Transthoracic echocardiogram. Procedure: Transthoracic echocardiography was performed. Image quality was fair. Complete 2D, spectral Doppler, and color flow Doppler. Location: Bedside. Patient status: Inpatient. Patient room number: 338. No prior study is available for comparison. Rhythm: Normal sinus rhythm. Findings Left ventricle: The cavity size is mildly reduced. Wall thickness is mildly increased. Systolic function is normal. The estimated ejection fraction is 55-60%. Wall motion overall hyperdynamic but cannot exclude a small area of subtle mid to distal septal hypokinesis versus artifact. Doppler parameters are consistent with abnormal left ventricular relaxation (grade 1 diastolic dysfunction). Right ventricle: The cavity size is normal. Systolic function is normal. Left atrium: The atrium is normal in size. Right atrium: The atrium is normal in size. Mitral valve: The leaflets are mildly thickened. There is no evidence of stenosis. There is trace regurgitation. Aortic valve: The leaflets are mildly thickened. There is no evidence of stenosis. There is trace regurgitation. Tricuspid valve: The leaflets are normal thickness. There is no evidence of stenosis. There is trace regurgitation. Pulmonic valve: Not well visualized. There is no significant regurgitation. Aorta: The aortic root appears normal. The aortic arch appears normal. Pericardium: There is no significant pericardial effusion. Pulmonary arteries: Not well visualized. Systolic pressure can not be accurately estimated. Systemic veins: Inferior vena cava: The vessel is normal in size. There is (< 50%) respiratory change in the IVC dimension. Measurements Left ventricle Value Ref Aortic valve Value Ref JAMA, LAX (L) 3.5 cm 4.2 - 5.8 Kary diam, ED 2.0 cm ---- ESD, LAX 2.6 cm 2.5 - 4.0 Peak v, S 1.03 m/sec ---- FS, LAX 26 % 25 - 43 VTI, S 17.5 cm ---- PW, ED, LAX (H) 1.2 cm 0.6 - 1.0 Mean grad, S 2.0 mm Hg ---- E', lat kary, TDI 15.8 cm/sec >=10.0 Peak grad, S 4.0 mm Hg ---- E/e', lat kary, 5 TDI Mitral valve Value Ref E', med kary, TDI 10.8 cm/sec >=7.0 Peak E 0.76 m/sec ---- E/e', med kary, 7 Peak A 0.94 m/sec ---- TDI Decel time 66 ms ---- E', avg, TDI 13.3 cm/sec Peak grad, D 2.3 mm Hg ---- E/e', avg, TDI 6 <=14 Peak E/A ratio 0.8 ---- LVOT Value Ref Pulmonic valve Value Ref Peak albertina, S 0.87 m/sec Peak v, S 0.8 m/sec ---- Mean grad, S 2 mm Hg Peak grad, S 3.0 mm Hg ---- Ventricular septum Value Ref Aortic root Value Ref IVS, ED (H) 1.1 cm 0.6 - 1.0 Root diam 3.1 cm <4.2 Right ventricle Value Ref Aortic arch Value Ref AW thickness, ED (H) 0.6 cm 0.1 - 0.5 Arch diam 2.8 cm ---- JAMA, LAX 1.9 cm JAMA minor ax, A4C 3.1 cm 1.9 - 3.5 Decending aorta Value Ref mid Lisseth peak albertina 1.11 m/sec ---- Left atrium Value Ref Inferior vena cava Value Ref AP dim, ES 3.60 cm 3.00 - Diam 2.0 cm ---- 4.00 ML dim, A4C 4.0 cm SI dim, A4C 4.1 cm Right atrium Value Ref SI dim, ES 3.9 cm 3.4 - 5.3 ML dim, ES, A4C 3.7 cm 2.6 - 4.4 Estimated RAP 8 mm Hg Legend: (L) and (H) ziggy values outside specified reference range. Prepared and electronically signed by Josh Xiao MD 03/01/2019 16:14
--- NOTE | 2019-03-01 17:15 | PN ---
Progress Note - Progress Note Date of Service: 03/01/19 Note: Pt seen and examined. Recent diagnosis of ALS with significant muscle wasting and loss on right side s/p fall today with R distal tib/fib fracture. Full consult by [facility]. Family at bedside. Lives alone. Recommend ORIF of right tibia. Will be taken care off Tuesday by my colleague, likely Dr Hernandez. For now. NWB, ice/elevate. continue current care. NPO tuesday
[2019-03-01] MEDS: Acetaminophen TAB* 325 MG PO PRN (17:28)
[2019-03-01 18:00] LABS: ABS Basophils 0.1 10^3/ul (0-0.2); ABS Eosinophils 0.1 10^3/ul (0-0.6); ABS Lymphocytes 1.8 10^3/ul (1.0-4.8); ABS Monocytes 1.1 10^3/ul (0-0.8); ABS Neutrophils 6.7 10^3/ul (1.5-7.7); Eosinophil % 0.8 %; Hematocrit 39 % (42-52); Hemoglobin 13.3 g/dL (14.0-18.0); Lymphocyte % 18.8 %; Mean Corpuscular HGB Conc 34 g/dL (31-36); Mean Corpuscular Hemoglobin 30 pg (27-31); Mean Corpuscular Volume 89 fL (80-94); Mean Platelet Volume 7.1 fL (7.4-10.4); Nucleated Red Blood Cells % 0.5; Platelet Count 244 10^3/uL (150-450); Red Blood Count 4.38 10^6 /uL (4.18-5.48); Red Cell Distribution Width 14 % (10-15); White Blood Count 9.8 10^3/uL (3.5-10.8)
[2019-03-01 18:18] LABS: BUN/Creatinine Ratio 19.4 (8-20); Calcium 8.8 mg/dL (8.6-10.3); EGFR African American 131.8 (>60); EGFR Non-African American 108.9 (>60); Potassium 3.9 mmol/L (3.5-5.0)
[2019-03-01 19:14] LABS: Hepatitis C Antibody Negative (Negative)
[2019-03-01] MEDS: Gabapentin CAP(*) 100 MG PO SCH (21:46)
[2019-03-01] MEDS: RILUZOLE 50 MG PO SCH (21:47)
[2019-03-01] MEDS: Amitriptyline TAB* 50 MG PO SCH ×2 (21:50→21:51)
[2019-03-01] MEDS: Morphine INJ* 2 MG/ML 1 ML SYRINGE (TWO MG - NEW SYRINGE VERSION) IV PRN (22:46)
[2019-03-02] MEDS: RILUZOLE 50 MG PO SCH ×2 (08:26→20:41)
[2019-03-02] MEDS: Gabapentin CAP(*) 100 MG PO SCH ×2 (08:27→20:39)
[2019-03-02] MEDS: oxyCODONE TAB* 5 MG TAB PO PRN ×4 (08:27→20:40)
[2019-03-02] MEDS: Carvedilol TAB* 25 MG PO SCH ×2 (08:28→20:39)
[2019-03-02] MEDS: PIGGYBACK IV SCH (08:31)
[2019-03-02] MEDS: EDARAVONE IV SCH (08:31)
[2019-03-02] MEDS ORDERED: Gabapentin CAP(*) 100 MG PO SCH (09:00)
[2019-03-02] MEDS ORDERED: Amitriptyline TAB* 50 MG PO SCH (09:00)
[2019-03-02] MEDS ORDERED: Lisinopril TAB* 10 MG PO SCH (09:00)
[2019-03-02] MEDS: Amitriptyline TAB* 25 MG PO SCH ×2 (09:15→20:39)
--- NOTE | 2019-03-02 09:51 | PN ---
Progress Note - Progress Note Date of Service: 03/02/19 SOAP: Subjective: [Pt was seen this morning eating breakfast in bed. The pt states that he continues to have some soreness in the leg but being in the splint does help with the pain and stability. The pt denies any chest pain, SOB, nausea, vomiting. ] Objective: [AAOx3. NAD. lying in bed Right leg splint in tact.: WWP toes. able to weakly flex and extend. Sensate though diminished on that side which could be baseline.] Vital Signs Temp 98.1 F 03/02/19 07:45 Pulse 96 03/02/19 07:45 Resp 16 03/02/19 08:27 BP 134/80 03/02/19 07:45 Pulse Ox 94 03/02/19 07:45 Intake & Output 03/01/19 03/02/19 03/02/19 18:59 06:59 18:59 Intake Total 480 1350 200 Output Total 1000 300 500 Balance -520 1050 -300 Weight 165 lb Intake: IV Fluids 200 Radicava 200 Oral 480 1350 Output: Urine 1000 300 500 Assessment: [Comminued distal 1/3 tibia and fibula fracture of the right leg Plan: 68 yo male with newly diagnosed ALS who lives alone NWB. but may mobilize Q2 turns OOB to chair as tolerated medical optimization for surgery tuesday pt with dispo issue as children live in [place] and [place] Also concerned with ALS in combo with splint could result in falls, re injury or further injury will need social service assistant OR tuesday for ORIF.
[2019-03-02] MEDS: Baclofen TAB* 10 MG PO PRN ×2 (10:59→18:27)
[2019-03-02] MEDS ORDERED: Polyethylene Glycol 3350* 17 GM PACKET PO PRN (12:45)
[2019-03-02] MEDS: Enoxaparin(*) 40 MG/0.4 ML SYR SUBCUT SCH (14:37)
[2019-03-02] MEDS: Lisinopril TAB* 10 MG PO SCH (20:39)
[2019-03-02] MEDS: Senna TAB 8.6 mg* TAB PO PRN (20:54)
--- NOTE | 2019-03-02 21:37 | PN ---
Subjective Date of Service: 03/02/19 Interval History: Patient feels well today. Minimal pain, hasn't been out of bed. No worsening numbness/tingling in leg. Denies F/C, N/V, abdominal pain, dysuria, or other pain. Family History: Unchanged from Admission Social History: Unchanged from Admission Past Medical History: Unchanged from Admission Objective Active Medications: Acetaminophen (Tylenol Tab*) 650 mg PO Q6H PRN PRN Reason: MILD PAIN or TEMP > 100.4 Last Admin: 03/01/19 17:28 Dose: 650 mg Amitriptyline HCl (Elavil Tab*) 50 mg PO BID [facility] Last Admin: 03/02/19 20:39 Dose: 50 mg Baclofen (Lioresal Tab*) 10 mg PO TID PRN PRN Reason: SPASMS Last Admin: 03/02/19 18:27 Dose: 10 mg Carvedilol (Coreg Tab*) 25 mg PO BID [facility] Last Admin: 03/02/19 20:39 Dose: 25 mg Enoxaparin Sodium (Lovenox(*)) 40 mg SUBCUT Q24H [facility] Last Admin: 03/02/19 14:37 Dose: 40 mg Gabapentin (Neurontin Cap(*)) 100 mg PO BID [facility] Last Admin: 03/02/19 20:39 Dose: 100 mg Heparin Sodium (Porcine) (Heparin Flush Picc/Ml/Cvc(*)) 1 ml FLUSH 0600,1800 [facility]; Protocol Last Admin: 03/02/19 18:28 Dose: 1 ml Lisinopril (Prinivil Tab*) 10 mg PO BEDTIME [facility]; Protocol Last Admin: 03/02/19 20:39 Dose: 10 mg Magnesium Hydroxide (Milk Of Magnesia Liq*) 30 ml PO BID PRN PRN Reason: CONSTIPATION Morphine Sulfate (Morphine Inj (Syringe))*) 2 mg IV Q2H PRN PRN Reason: Pain - Severe/Breakthrough Last Admin: 03/01/19 22:46 Dose: 2 mg Ondansetron HCl (Zofran Inj*) 4 mg IV Q6H PRN PRN Reason: NAUSEA Oxycodone HCl (Roxycodone Tab*) 5 mg PO Q6H PRN PRN Reason: PAIN - SEVERE Last Admin: 03/01/19 19:34 Dose: 5 mg Oxycodone HCl (Roxycodone Tab*) 10 mg PO Q6H PRN PRN Reason: PAIN - SEVERE Last Admin: 03/02/19 20:40 Dose: 10 mg Polyethylene Glycol/Electrolytes (Miralax*) 17 gm PO DAILY PRN PRN Reason: CONSTIPATION Riluzole (Riluzole (Nf)) 50 mg PO BID [facility] Last Admin: 03/02/19 20:41 Dose: 50 mg Senna (Senokot 8.6 Mg Tab*) 1 tab PO BEDTIME PRN PRN Reason: CONSTIPATION Last Admin: 03/02/19 20:54 Dose: 1 tab Vital Signs - 8 hr 03/02/19 03/02/19 03/02/19 14:36 16:07 19:18 Temperature Pulse Rate Respiratory 18 16 16 Rate Blood Pressure (mmHg) O2 Sat by Pulse Oximetry 03/02/19 03/02/19 03/02/19 19:33 20:39 20:40 Temperature 98.2 F Pulse Rate 101 Respiratory 16 16 16 Rate Blood Pressure 127/83 (mmHg) O2 Sat by Pulse 96 Oximetry Oxygen Devices in Use Now: None Appearance: Patient is a 68yo male who appears stated age and is sitting in the bed in [facility]. Eyes: No Scleral Icterus, PERRLA Ears/Nose/Mouth/Throat: NL Teeth, Lips, Gums, Clear Oropharnyx, Mucous Membranes Moist Neck: NL Appearance and Movements; NL JVP, Trachea Midline, No Thyroid Enlargement, Masses Respiratory: Symmetrical Chest Expansion and Respiratory Effort, Clear to Auscultation Cardiovascular: NL Sounds; No Murmurs; No JVD, RRR, No Edema Abdominal: NL Sounds; No Tenderness; No Distention, No Hepatosplenomegaly Lymphatic: No Cervical Adenopathy Extremities: No Edema, No Clubbing, Cyanosis, - - Good Distal Capillary refill. Right leg in cast Skin: No Rash or Ulcers, No Nodules or Sclerosis Neurological: Alert and Oriented x 3, - - Widespread fasicuations. Diffuse Weakness. Result Diagrams: 03/01/19 17:50 03/01/19 17:50 Assess/Plan/Problems-Billing Assessment: Patient is a 68yo male with a PMH for ALS, HTN, HLD, here for ankle fracture and baseline weakness awaiting surgery Monday 03/05. - Patient Problems (1) Fracture of right tibia and fibula Current Visit: Yes Status: Acute Code(s): S82.201A - UNSP FRACTURE OF SHAFT OF RIGHT TIBIA, INIT FOR CLOS FX; S82.401A - UNSP FRACTURE OF SHAFT OF RIGHT FIBULA, INIT FOR CLOS FX SNOMED Code(s): 21202247 Comment: - Appreciate orthopedic input. - Splinted - Pending ORIF Tuesday - Unable to function at home with fracture and ALS - No signs of HF, patient is medically optimized with an RCRI of 0 making him a low risk for a low risk surgery. No further cardiac testing indicated. - PT/OT - Pain Control (2) ALS (amyotrophic lateral sclerosis) Current Visit: Yes Status: Acute Code(s): G12.21 - AMYOTROPHIC LATERAL SCLEROSIS SNOMED Code(s): 12601019 Comment: - Continue Chronic Treatments - Follow up outpatient neurologist. (3) HTN (hypertension) Current Visit: Yes Status: Acute Code(s): I10 - ESSENTIAL (PRIMARY) HYPERTENSION SNOMED Code(s): 54865981 Comment: - Normotensive, Hold ACEI on day of surgery - Continue ACEI and BB for now. (4) DVT prophylaxis Current Visit: Yes Status: Acute Code(s): Z29.9 - ENCOUNTER FOR PROPHYLACTIC MEASURES, UNSPECIFIED SNOMED Code(s): 686519276 Comment: - Lovenox SubQ Status and Disposition: Pending Surgery
[2019-03-03] MEDS: PIGGYBACK IV SCH (08:03)
[2019-03-03] MEDS: EDARAVONE IV SCH (08:03)
[2019-03-03] MEDS: RILUZOLE 50 MG PO SCH ×2 (08:07→20:20)
[2019-03-03] MEDS: Amitriptyline TAB* 25 MG PO SCH ×2 (08:08→20:19)
[2019-03-03] MEDS: Gabapentin CAP(*) 100 MG PO SCH ×2 (08:08→20:19)
[2019-03-03] MEDS: Carvedilol TAB* 25 MG PO SCH ×2 (08:08→20:19)
--- NOTE | 2019-03-03 08:33 | PN ---
Progress Note - Progress Note Date of Service: 03/03/19 SOAP: Subjective: [Pt was seen this morning lying in bed reading the paper. The pt states that he continues to have some soreness in the leg but being in the splint does help with the pain and stability. The pt denies any chest pain, SOB, nausea, vomiting. ] Objective: [AAOx3. NAD. lying in bed Right leg splint in tact.: WWP toes. able to weakly flex and extend. Sensate though diminished on that side which could be baseline.] Vital Signs Temp 98.2 F 03/03/19 08:15 Pulse 92 03/03/19 08:15 Resp 16 03/03/19 08:15 BP 120/66 03/03/19 08:15 Pulse Ox 95 03/03/19 08:15 Intake & Output 03/02/19 03/03/19 03/03/19 18:59 06:59 18:59 Intake Total 1400 400 Output Total 1425 1450 500 Balance -25 -1050 -500 Intake: IV Fluids 200 Radicava 200 Oral 1200 400 Output: Urine 1425 1450 500 Assessment: [Comminued distal 1/3 tibia and fibula fracture of the right leg Plan: 68 yo male with newly diagnosed ALS who lives alone NWB. but may mobilize Q2 turns OOB to chair as tolerated medical optimization for surgery tuesday pt with dispo issue as children live in [place] and [place] Also concerned with ALS in combo with splint could result in falls, re injury or further injury will need social worker school OR tuesday for ORIF.
--- NOTE | 2019-03-03 10:55 | PN ---
Subjective Date of Service: 03/03/19 Interval History: Minor spasms and minimal pain in leg today. Unable to stand while maintaining NWB, so will reassess after surgery. Denies CP, SOB, F/C, N/V, abdominal pain, constipation, or other pain. Family History: Unchanged from Admission Social History: Unchanged from Admission Past Medical History: Unchanged from Admission Objective Active Medications: Acetaminophen (Tylenol Tab*) 650 mg PO Q6H PRN PRN Reason: MILD PAIN or TEMP > 100.4 Last Admin: 03/01/19 17:28 Dose: 650 mg Amitriptyline HCl (Elavil Tab*) 50 mg PO BID [facility] Last Admin: 03/03/19 08:08 Dose: 50 mg Baclofen (Lioresal Tab*) 10 mg PO TID PRN PRN Reason: SPASMS Last Admin: 03/02/19 18:27 Dose: 10 mg Carvedilol (Coreg Tab*) 25 mg PO BID [facility] Last Admin: 03/03/19 08:08 Dose: 25 mg Enoxaparin Sodium (Lovenox(*)) 40 mg SUBCUT Q24H [facility] Last Admin: 03/02/19 14:37 Dose: 40 mg Gabapentin (Neurontin Cap(*)) 100 mg PO BID [facility] Last Admin: 03/03/19 08:08 Dose: 100 mg Heparin Sodium (Porcine) (Heparin Flush Picc/Ml/Cvc(*)) 1 ml FLUSH 0600,1800 [facility]; Protocol Last Admin: 03/03/19 05:48 Dose: 1 ml Lisinopril (Prinivil Tab*) 10 mg PO BEDTIME [facility]; Protocol Last Admin: 03/02/19 20:39 Dose: 10 mg Magnesium Hydroxide (Milk Of Magnesia Liq*) 30 ml PO BID PRN PRN Reason: CONSTIPATION Morphine Sulfate (Morphine Inj (Syringe))*) 2 mg IV Q2H PRN PRN Reason: Pain - Severe/Breakthrough Last Admin: 03/01/19 22:46 Dose: 2 mg Ondansetron HCl (Zofran Inj*) 4 mg IV Q6H PRN PRN Reason: NAUSEA Oxycodone HCl (Roxycodone Tab*) 5 mg PO Q6H PRN PRN Reason: PAIN - SEVERE Last Admin: 03/01/19 19:34 Dose: 5 mg Oxycodone HCl (Roxycodone Tab*) 10 mg PO Q6H PRN PRN Reason: PAIN - SEVERE Last Admin: 03/02/19 20:40 Dose: 10 mg Polyethylene Glycol/Electrolytes (Miralax*) 17 gm PO DAILY PRN PRN Reason: CONSTIPATION Riluzole (Riluzole (Nf)) 50 mg PO BID [facility] Last Admin: 03/03/19 08:07 Dose: 50 mg Senna (Senokot 8.6 Mg Tab*) 1 tab PO BEDTIME PRN PRN Reason: CONSTIPATION Last Admin: 03/02/19 20:54 Dose: 1 tab Vital Signs - 8 hr 03/03/19 03/03/19 03/03/19 03:15 08:00 08:08 Temperature 97.4 F Pulse Rate 89 Respiratory 16 16 18 Rate Blood Pressure 108/68 (mmHg) O2 Sat by Pulse 94 Oximetry 03/03/19 08:15 Temperature 98.2 F Pulse Rate 92 Respiratory 16 Rate Blood Pressure 120/66 (mmHg) O2 Sat by Pulse 95 Oximetry Oxygen Devices in Use Now: None Appearance: Patient is a 68yo male who appears stated age and is sitting in the bed in [facility]. Eyes: No Scleral Icterus, PERRLA Ears/Nose/Mouth/Throat: NL Teeth, Lips, Gums, Clear Oropharnyx, Mucous Membranes Moist Neck: NL Appearance and Movements; NL JVP, Trachea Midline Respiratory: Symmetrical Chest Expansion and Respiratory Effort, Clear to Auscultation Cardiovascular: NL Sounds; No Murmurs; No JVD, RRR, No Edema Abdominal: NL Sounds; No Tenderness; No Distention, No Hepatosplenomegaly Lymphatic: No Cervical Adenopathy Extremities: No Edema, No Clubbing, Cyanosis, - - RLE in Cast, Preserved capillary refill and Skin: No Rash or Ulcers, No Nodules or Sclerosis Neurological: Alert and Oriented x 3, - - Fasiculations and weakness unchanged. Result Diagrams: 03/01/19 17:50 03/01/19 17:50 Assess/Plan/Problems-Billing Assessment: Patient is a 68yo male with a PMH for ALS, HTN, HLD, here for ankle fracture and baseline weakness awaiting surgery Monday 03/05. - Patient Problems (1) Fracture of right tibia and fibula Current Visit: Yes Status: Acute Code(s): S82.201A - UNSP FRACTURE OF SHAFT OF RIGHT TIBIA, INIT FOR CLOS FX; S82.401A - UNSP FRACTURE OF SHAFT OF RIGHT FIBULA, INIT FOR CLOS FX SNOMED Code(s): 72860922 Comment: - Appreciate orthopedic input. - Splinted - Pending ORIF Tuesday - Unable to function at home with fracture and ALS - No signs of HF, patient is medically optimized with an RCRI of 0 making him a low risk for a low risk surgery. No further cardiac testing indicated. - PT/OT when able. - Pain Control (2) ALS (amyotrophic lateral sclerosis) Current Visit: Yes Status: Acute Code(s): G12.21 - AMYOTROPHIC LATERAL SCLEROSIS SNOMED Code(s): 37107856 Comment: - Continue Chronic Treatments - Follow up outpatient neurologist. (3) HTN (hypertension) Current Visit: Yes Status: Acute Code(s): I10 - ESSENTIAL (PRIMARY) HYPERTENSION SNOMED Code(s): 83329801 Comment: - Normotensive, Hold ACEI on day of surgery - Continue ACEI and BB for now. (4) DVT prophylaxis Current Visit: Yes Status: Acute Code(s): Z29.9 - ENCOUNTER FOR PROPHYLACTIC MEASURES, UNSPECIFIED SNOMED Code(s): 263850948 Comment: - Lovenox SubQ Status and Disposition: Pending Surgery
[2019-03-03] MEDS: Baclofen TAB* 10 MG PO PRN (11:02)
[2019-03-03] MEDS: Acetaminophen TAB* 325 MG PO PRN ×2 (11:04→22:36)
[2019-03-03] MEDS: oxyCODONE TAB* 5 MG TAB PO PRN ×2 (12:19→20:23)
[2019-03-03] MEDS: Enoxaparin(*) 40 MG/0.4 ML SYR SUBCUT SCH (12:19)
[2019-03-03] MEDS: Lisinopril TAB* 10 MG PO SCH (20:20)
[2019-03-03] MEDS: Magnesium Hydroxide LIQ* 30 ML UDC PO PRN (20:25)
[2019-03-03] MEDS: Senna TAB 8.6 mg* TAB PO PRN (20:26)
[2019-03-03] MEDS: tiZANidine TAB* 2 MG PO PRN (20:38)
[2019-03-04] MEDS: Acetaminophen TAB* 325 MG PO PRN ×2 (06:04→21:34)
--- NOTE | 2019-03-04 08:16 | PN ---
Progress Note - Progress Note Date of Service: 03/04/19 SOAP: Subjective: [Pt was seen this morning lying in bed.. The pt states that he continues to have some soreness in the leg but being in the splint does help with the pain and stability. The pt denies any chest pain, SOB, nausea, vomiting. ] Objective: [AAOx3. NAD. lying in bed Right leg splint in tact.: WWP toes. able to weakly flex and extend. Sensate though diminished on that side which could be baseline.] Vital Signs Temp 98.4 F 03/04/19 08:00 Pulse 79 03/04/19 08:00 Resp 16 03/04/19 08:39 BP 133/63 03/04/19 08:00 Pulse Ox 95 03/04/19 08:00 Intake & Output 03/03/19 03/04/19 03/04/19 18:59 06:59 18:59 Intake Total 217 1300 240 Output Total 1500 950 400 Balance -1283 350 -160 Intake: IV Fluids 217 Radicava 217 Oral 0 1300 240 Output: Urine 1500 950 400 Assessment: [Comminued distal 1/3 tibia and fibula fracture of the right leg Plan: 68 yo male with newly diagnosed ALS who lives alone NWB. but may mobilize OOB to chair as tolerated medical optimization for surgery tomorrow NPO after midnight tonight pt with dispo issue as children live in [place] and [place] Also concerned with ALS in combo with splint could result in falls, re injury or further injury will need social media strategist
[2019-03-04] MEDS: Gabapentin CAP(*) 100 MG PO SCH ×2 (08:39→21:33)
[2019-03-04] MEDS: EDARAVONE IV SCH (08:39)
[2019-03-04] MEDS: PIGGYBACK IV SCH (08:39)
[2019-03-04] MEDS: RILUZOLE 50 MG PO SCH ×2 (08:40→21:34)
[2019-03-04] MEDS: Carvedilol TAB* 25 MG PO SCH ×2 (08:40→21:32)
[2019-03-04] MEDS: Amitriptyline TAB* 25 MG PO SCH ×2 (08:40→21:32)
[2019-03-04] MEDS: Magnesium Hydroxide LIQ* 30 ML UDC PO PRN (10:11)
--- NOTE | 2019-03-04 10:34 | PN ---
Subjective Date of Service: 03/04/19 Interval History: Patient is still having pain and spasms in leg. Patient denies CP, SOB, F/C, N/V , abdominal pain, dizziness, or other pain. Patient is excited for surgery and disposition. Family History: Unchanged from Admission Social History: Unchanged from Admission Past Medical History: Unchanged from Admission Objective Active Medications: Acetaminophen (Tylenol Tab*) 650 mg PO Q6H PRN PRN Reason: MILD PAIN or TEMP > 100.4 Last Admin: 03/04/19 06:04 Dose: 650 mg Amitriptyline HCl (Elavil Tab*) 50 mg PO BID [facility] Last Admin: 03/04/19 08:40 Dose: 50 mg Carvedilol (Coreg Tab*) 25 mg PO BID [facility] Last Admin: 03/04/19 08:40 Dose: 25 mg Enoxaparin Sodium (Lovenox(*)) 40 mg SUBCUT Q24H [facility] Stop: 03/04/19 23:59 Last Admin: 03/03/19 12:19 Dose: 40 mg Gabapentin (Neurontin Cap(*)) 100 mg PO BID [facility] Last Admin: 03/04/19 08:39 Dose: 100 mg Heparin Sodium (Porcine) (Heparin Flush Picc/Ml/Cvc(*)) 1 ml FLUSH 0600,1800 [facility]; Protocol Last Admin: 03/04/19 10:11 Dose: 1 ml Lisinopril (Prinivil Tab*) 10 mg PO BEDTIME [facility]; Protocol Stop: 03/04/19 23:59 Last Admin: 03/03/19 20:20 Dose: 10 mg Magnesium Hydroxide (Milk Of Magnesia Liq*) 30 ml PO BID PRN PRN Reason: CONSTIPATION Last Admin: 03/04/19 10:11 Dose: 30 ml Morphine Sulfate (Morphine Inj (Syringe))*) 2 mg IV Q2H PRN PRN Reason: Pain - Severe/Breakthrough Last Admin: 03/01/19 22:46 Dose: 2 mg Ondansetron HCl (Zofran Inj*) 4 mg IV Q6H PRN PRN Reason: NAUSEA Oxycodone HCl (Roxycodone Tab*) 5 mg PO Q6H PRN PRN Reason: PAIN - SEVERE Last Admin: 03/03/19 12:19 Dose: 5 mg Oxycodone HCl (Roxycodone Tab*) 10 mg PO Q6H PRN PRN Reason: PAIN - SEVERE Last Admin: 03/03/19 20:23 Dose: 10 mg Polyethylene Glycol/Electrolytes (Miralax*) 17 gm PO DAILY PRN PRN Reason: CONSTIPATION Riluzole (Riluzole (Nf)) 50 mg PO BID [facility] Last Admin: 03/04/19 08:40 Dose: 50 mg Senna (Senokot 8.6 Mg Tab*) 1 tab PO BEDTIME PRN PRN Reason: CONSTIPATION Last Admin: 03/03/19 20:26 Dose: 1 tab Tizanidine HCl (Zanaflex Tab*) 2 mg PO Q8H PRN PRN Reason: SPASMS Last Admin: 03/03/19 20:38 Dose: 2 mg Vital Signs - 8 hr 03/04/19 03/04/19 03/04/19 03:30 08:00 08:30 Temperature 98.3 F 98.4 F Pulse Rate 83 79 Respiratory 16 16 16 Rate Blood Pressure 103/62 133/63 (mmHg) O2 Sat by Pulse 94 95 Oximetry 03/04/19 08:39 Temperature Pulse Rate Respiratory 16 Rate Blood Pressure (mmHg) O2 Sat by Pulse Oximetry Oxygen Devices in Use Now: None Appearance: Patient is a 69yo male who appears stated age and is sitting in the bed in [facility]. Eyes: No Scleral Icterus, PERRLA Ears/Nose/Mouth/Throat: NL Teeth, Lips, Gums, Clear Oropharnyx, Mucous Membranes Moist Neck: NL Appearance and Movements; NL JVP, Trachea Midline Respiratory: Symmetrical Chest Expansion and Respiratory Effort, Clear to Auscultation Cardiovascular: NL Sounds; No Murmurs; No JVD, RRR, No Edema Abdominal: NL Sounds; No Tenderness; No Distention, No Hepatosplenomegaly Lymphatic: No Cervical Adenopathy Extremities: No Clubbing, Cyanosis, - - Right leg in brace. Good Capillary Refill Neurological: Alert and Oriented x 3, - - Peripheral neuropathy. Weakness and Fasiculations. Result Diagrams: 03/01/19 17:50 03/01/19 17:50 Assess/Plan/Problems-Billing Assessment: Patient is a 68yo male with a PMH for ALS, HTN, HLD, here for ankle fracture and baseline weakness awaiting surgery Monday 03/05. - Patient Problems (1) Fracture of right tibia and fibula Current Visit: Yes Status: Acute Code(s): S82.201A - UNSP FRACTURE OF SHAFT OF RIGHT TIBIA, INIT FOR CLOS FX; S82.401A - UNSP FRACTURE OF SHAFT OF RIGHT FIBULA, INIT FOR CLOS FX SNOMED Code(s): 46998907 Comment: - Appreciate orthopedic input. - Splinted - Pending ORIF tomorrow. - Unable to function at home with fracture and ALS - No signs of HF, patient is medically optimized with an RCRI of 0 making him a low risk for a low risk surgery. No further cardiac testing indicated. - PT/OT when able. - Pain Control (2) ALS (amyotrophic lateral sclerosis) Current Visit: Yes Status: Acute Code(s): G12.21 - AMYOTROPHIC LATERAL SCLEROSIS SNOMED Code(s): 41095230 Comment: - Continue Chronic Treatments - Follow up outpatient neurologist. (3) HTN (hypertension) Current Visit: Yes Status: Acute Code(s): I10 - ESSENTIAL (PRIMARY) HYPERTENSION SNOMED Code(s): 82469247 Comment: - Normotensive, Hold ACEI on day of surgery - Continue BB perioperatively. (4) DVT prophylaxis Current Visit: Yes Status: Acute Code(s): Z29.9 - ENCOUNTER FOR PROPHYLACTIC MEASURES, UNSPECIFIED SNOMED Code(s): 024775138 Comment: - Lovenox SubQ Status and Disposition: Pending Surgery, may then need senior living placement.
[2019-03-04] MEDS: tiZANidine TAB* 2 MG PO PRN ×2 (11:29→19:14)
[2019-03-04] MEDS: Enoxaparin(*) 40 MG/0.4 ML SYR SUBCUT SCH (13:08)
[2019-03-04] MEDS: oxyCODONE TAB* 5 MG TAB PO PRN (19:18)
[2019-03-04] MEDS: Lisinopril TAB* 10 MG PO SCH (21:33)
[2019-03-05] MEDS: Carvedilol TAB* 25 MG PO SCH ×3 (05:58→20:41)
[2019-03-05] MEDS: Gabapentin CAP(*) 100 MG PO SCH ×3 (05:58→20:41)
[2019-03-05] MEDS: Amitriptyline TAB* 25 MG PO SCH ×2 (05:58→12:27)
[2019-03-05] MEDS: RILUZOLE 50 MG PO SCH ×3 (05:59→20:42)
[2019-03-05] MEDS ORDERED: Famotidine IV* 10 MG/ML 2 ML (20 mg) IV ONE (06:00)
[2019-03-05] MEDS ORDERED: Lactated Ringers 1000 ML Bag* 1,000 ML IV SCH (06:00)
[2019-03-05] MEDS ORDERED: Buffered Lidocaine 1% SYRIN* 1 ML/SYRINGE INTRADERM ONE ×2 (06:30→07:20)
[2019-03-05] MEDS ORDERED: Famotidine IV* 10 MG/ML 2 ML (20 mg) ONE (06:39)
[2019-03-05] MEDS ORDERED: ceFAZolin 2 GM in NS PREMIX(*) 2 GM/100 ML BAG IVPB ONE (07:07)
[2019-03-05] MEDS ORDERED: Midazolam* 1 MG/ML 5 ML VIAL (5 MG) ONE (07:09)
[2019-03-05] MEDS ORDERED: Lidocaine 2% PF * 5 ML VIAL ONE (07:09)
[2019-03-05] MEDS ORDERED: fentaNYL* 50 MCG/ML 2 ML VIAL (100 MCG VIAL) ONE ×3 (07:09→11:21)
[2019-03-05] MEDS ORDERED: Propofol* 10 MG/ML 20 ML BTL ONE (07:09)
[2019-03-05] MEDS ORDERED: Ondansetron INJ* 2 MG/ML VIAL ONE (07:09)
[2019-03-05] MEDS ORDERED: KETAMINE HCL* 50 MG/ML 10 ML VIAL ONE (07:09)
[2019-03-05] MEDS ORDERED: Ketorolac INJ* 30 MG/ML 1 ML VIAL ONE (07:09)
[2019-03-05] MEDS ORDERED: Dexamethasone IV* 4 MG/ML 1 ML (4 MG) ONE (07:09)
[2019-03-05] MEDS ORDERED: Bupivacaine 0.25% EPI 200,000* 30 ML SDV ONE (07:25)
[2019-03-05] MEDS ORDERED: Phenylephrine 40 MCG/ML SYRINGE ONE (07:50)
[2019-03-05] MEDS ORDERED: VASOPRESSIN 20 UNITS/ML 1 ML VIAL ONE (08:11)
[2019-03-05] MEDS ORDERED: EPHEDrine (Pressors)* 50 MG/ML VIAL ONE (08:24)
[2019-03-05] MEDS ORDERED: Naloxone* 0.4 MG/ML 1 ML VIAL IV PRN (08:33)
[2019-03-05] MEDS ORDERED: Ondansetron INJ* 2 MG/ML VIAL IV PRN (08:33)
[2019-03-05] MEDS ORDERED: DiMENhydriNATE IV* 50 MG/ML VIAL IV PUSH PRN (08:33)
[2019-03-05] MEDS ORDERED: HYDROmorphone INJ1* 1 MG/ML SYRINGE IV PRN (08:33)
[2019-03-05] MEDS: EDARAVONE IV SCH (08:49)
[2019-03-05] MEDS: PIGGYBACK IV SCH (08:49)
[2019-03-05] MEDS: fentaNYL* 50 MCG/ML 2 ML VIAL (100 MCG VIAL) IV PRN ×3 (11:21→11:34)
[2019-03-05] MEDS: Lactated Ringers 1000 ML Bag* 1,000 ML IV SCH ×2 (13:45→21:59)
[2019-03-05] MEDS: oxyCODONE TAB* 5 MG TAB PO PRN ×2 (14:10→20:18)
--- NOTE | 2019-03-05 14:13 | PN ---
Subjective Date of Service: 03/05/19 Interval History: Patient examined after surgery. Patient is drowsy and rates pain at 6/10 in leg. Patient denies other complaints including CP, SOB, dizziness, abdominal pain, F/C, or other pain. Family History: Unchanged from Admission Social History: Unchanged from Admission Past Medical History: Unchanged from Admission Objective Active Medications: Acetaminophen (Tylenol Tab*) 650 mg PO Q6H PRN PRN Reason: MILD PAIN or TEMP > 100.4 Last Admin: 03/04/19 21:34 Dose: 650 mg Amitriptyline HCl (Elavil Tab*) 50 mg PO BID [facility] Last Admin: 03/05/19 12:27 Dose: Not Given Carvedilol (Coreg Tab*) 25 mg PO BID [facility] Last Admin: 03/05/19 12:28 Dose: Not Given Gabapentin (Neurontin Cap(*)) 100 mg PO BID [facility] Last Admin: 03/05/19 12:27 Dose: Not Given Heparin Sodium (Porcine) (Heparin Flush Picc/Ml/Cvc(*)) 1 ml FLUSH 0600,1800 [facility]; Protocol Last Admin: 03/05/19 07:16 Dose: Not Given Heparin Sodium (Porcine) (Heparin Vial(*)) 5,000 units SUBCUT Q12H [facility] Lactated Ringer's (Lactated Ringers 1000 Ml Bag*) 1,000 mls @ 125 mls/hr IV PER RATE [facility] Last Admin: 03/05/19 06:43 Dose: 125 mls/hr Lactated Ringer's (Lactated Ringers 1000 Ml Bag*) 1,000 mls @ 125 mls/hr IV PER RATE [facility] Cefazolin Sodium/Dextrose (Kefzol 1 Gm In Dextrose Duplex (*)) 1 gm in 50 mls @ 200 mls/hr IVPB Q8H [facility] Stop: 03/06/19 08:14 Magnesium Hydroxide (Milk Of Magnesia Liq*) 30 ml PO BID PRN PRN Reason: CONSTIPATION Last Admin: 03/04/19 10:11 Dose: 30 ml Morphine Sulfate (Morphine Inj (Syringe))*) 2 mg IV Q2H PRN PRN Reason: Pain - Severe/Breakthrough Last Admin: 03/01/19 22:46 Dose: 2 mg Ondansetron HCl (Zofran Inj*) 4 mg IV Q6H PRN PRN Reason: NAUSEA Oxycodone HCl (Roxycodone Tab*) 5 mg PO Q6H PRN PRN Reason: PAIN - SEVERE Last Admin: 03/03/19 12:19 Dose: 5 mg Oxycodone HCl (Roxycodone Tab*) 10 mg PO Q6H PRN PRN Reason: PAIN - SEVERE Last Admin: 03/04/19 19:18 Dose: 10 mg Polyethylene Glycol/Electrolytes (Miralax*) 17 gm PO DAILY PRN PRN Reason: CONSTIPATION Riluzole (Riluzole (Nf)) 50 mg PO BID [facility] Last Admin: 03/05/19 12:28 Dose: Not Given Senna (Senokot 8.6 Mg Tab*) 1 tab PO BEDTIME PRN PRN Reason: CONSTIPATION Last Admin: 03/03/19 20:26 Dose: 1 tab Tizanidine HCl (Zanaflex Tab*) 2 mg PO Q8H PRN PRN Reason: SPASMS Last Admin: 03/04/19 19:14 Dose: 2 mg Vital Signs - 8 hr 03/05/19 03/05/19 03/05/19 06:31 10:55 11:05 Temperature 98.2 F 97.7 F Pulse Rate 96 91 92 Respiratory 20 14 16 Rate Blood Pressure 119/74 140/88 127/84 (mmHg) O2 Sat by Pulse 93 95 92 Oximetry 03/05/19 03/05/19 03/05/19 11:21 11:24 11:27 Temperature Pulse Rate 90 Respiratory 16 16 16 Rate Blood Pressure 127/84 (mmHg) O2 Sat by Pulse 93 Oximetry 03/05/19 03/05/19 03/05/19 11:34 11:56 12:15 Temperature 97.9 F 97.9 F Pulse Rate 91 84 Respiratory 14 14 16 Rate Blood Pressure 131/89 146/89 (mmHg) O2 Sat by Pulse 97 98 Oximetry 03/05/19 03/05/19 03/05/19 12:57 13:15 13:16 Temperature 98.1 F Pulse Rate 94 Respiratory 16 18 18 Rate Blood Pressure 139/79 (mmHg) O2 Sat by Pulse 96 Oximetry 03/05/19 13:36 Temperature 98.4 F Pulse Rate 92 Respiratory 16 Rate Blood Pressure 147/85 (mmHg) O2 Sat by Pulse 98 Oximetry Oxygen Devices in Use Now: Nasal Cannula Appearance: Patient is a 69yo male who appears stated age and is sitting in the bed in NAD. Eyes: No Scleral Icterus, PERRLA Ears/Nose/Mouth/Throat: NL Teeth, Lips, Gums, Clear Oropharnyx, Mucous Membranes Moist Neck: NL Appearance and Movements; NL JVP, Trachea Midline Respiratory: Symmetrical Chest Expansion and Respiratory Effort, Clear to Auscultation Cardiovascular: NL Sounds; No Murmurs; No JVD, RRR, No Edema Abdominal: NL Sounds; No Tenderness; No Distention, No Hepatosplenomegaly Lymphatic: No Cervical Adenopathy Extremities: No Clubbing, Cyanosis, - - Right lower leg covered in bulky dressing. Good pulses and capillary refill distally. Skin: No Nodules or Sclerosis Neurological: Alert and Oriented x 3 Result Diagrams: 03/01/19 17:50 03/01/19 17:50 Assess/Plan/Problems-Billing Assessment: Patient is a 68yo male with a PMH for ALS, HTN, HLD, here for ankle fracture and baseline weakness awaiting surgery Monday 03/05. - Patient Problems (1) Fracture of right tibia and fibula Current Visit: Yes Status: Acute Code(s): S82.201A - UNSP FRACTURE OF SHAFT OF RIGHT TIBIA, INIT FOR CLOS FX; S82.401A - UNSP FRACTURE OF SHAFT OF RIGHT FIBULA, INIT FOR CLOS FX SNOMED Code(s): 77761596 Comment: - Appreciate orthopedic input. - S/P ORIF today - Unable to function at home with fracture and ALS - PT/OT reordered - Pain Control (2) ALS (amyotrophic lateral sclerosis) Current Visit: Yes Status: Acute Code(s): G12.21 - AMYOTROPHIC LATERAL SCLEROSIS SNOMED Code(s): 26123150 Comment: - Continue Chronic Treatments - Follow up outpatient neurologist. (3) HTN (hypertension) Current Visit: Yes Status: Acute Code(s): I10 - ESSENTIAL (PRIMARY) HYPERTENSION SNOMED Code(s): 47591319 Comment: - Normotensive - Continue BB perioperatively. - Resume ACEI Tomorrow. (4) DVT prophylaxis Current Visit: Yes Status: Acute Code(s): Z29.9 - ENCOUNTER FOR PROPHYLACTIC MEASURES, UNSPECIFIED SNOMED Code(s): 407915053 Comment: - Lovenox SubQ Status and Disposition: Pending Surgery, may then need senior care placement vs [facility]
[2019-03-05] MEDS: ceFAZolin 1 GM in Dextrose (*) 1 GM/50 ML BAG IVPB SCH (15:46)
[2019-03-05] MEDS: Acetaminophen TAB* 325 MG PO PRN ×2 (15:51→21:52)
[2019-03-05] MEDS: Amitriptyline TAB* 50 MG PO SCH (21:53)
[2019-03-05] MEDS: tiZANidine TAB* 2 MG PO PRN (22:33)
[2019-03-06] MEDS: ceFAZolin 1 GM in Dextrose (*) 1 GM/50 ML BAG IVPB SCH ×2 (01:07→09:09)
[2019-03-06] MEDS: oxyCODONE TAB* 5 MG TAB PO PRN ×5 (01:40→21:37)
[2019-03-06] MEDS: Morphine INJ* 2 MG/ML 1 ML SYRINGE (TWO MG - NEW SYRINGE VERSION) IV PRN (02:42)
[2019-03-06] MEDS: Lactated Ringers 1000 ML Bag* 1,000 ML IV SCH (06:24)
[2019-03-06 07:03] LABS: Hematocrit 33 % (42-52); Hemoglobin 10.7 g/dL (14.0-18.0); Mean Corpuscular HGB Conc 32 g/dL (31-36); Mean Corpuscular Hemoglobin 29 pg (27-31); Mean Corpuscular Volume 90 fL (80-94); Mean Platelet Volume 7.3 fL (7.4-10.4); Platelet Count 237 10^3/uL (150-450); Red Cell Distribution Width 14 % (10-15); White Blood Count 13.5 10^3/uL (3.5-10.8)
[2019-03-06] MEDS: Amitriptyline TAB* 25 MG PO SCH (07:07)
[2019-03-06 07:25] LABS: EGFR African American 258.8 (>60); EGFR Non-African American 213.9 (>60); Potassium 3.1 mmol/L (3.5-5.0)
[2019-03-06] MEDS ORDERED: Potassium Chloride* LIQUID 20 MEQ/15 ML UDC PO ONE (07:28)
[2019-03-06 07:29] LABS: Calcium 6.2 mg/dL (8.6-10.3)
[2019-03-06 08:04] LABS: BUN/Creatinine Ratio 31.7 (8-20); Calcium 8.4 mg/dL (8.6-10.3); EGFR African American 162.1 (>60); Globulin 2.9 g/dL (2-4); Potassium 4.2 mmol/L (3.5-5.0); Total Bilirubin 0.4 mg/dL (0.2-1.0); Total Protein 5.9 g/dL (6.4-8.9)
[2019-03-06] MEDS: Gabapentin CAP(*) 100 MG PO SCH ×2 (09:12→21:03)
[2019-03-06] MEDS: RILUZOLE 50 MG PO SCH ×2 (09:12→21:04)
[2019-03-06] MEDS: Amitriptyline TAB* 50 MG PO SCH ×2 (09:12→21:03)
[2019-03-06] MEDS: Carvedilol TAB* 25 MG PO SCH ×2 (09:12→21:03)
[2019-03-06] MEDS: Heparin VIAL(*) 5000 UNITS/ML VIAL (FIVE THOUSAND) SUBCUT SCH ×2 (09:14→21:05)
[2019-03-06] MEDS: tiZANidine TAB* 2 MG PO PRN (09:24)
--- NOTE | 2019-03-06 09:39 | PN ---
Progress Note - Progress Note Date of Service: 03/06/19 SOAP: Subjective: Pt was seen this morning lying in bed. The pt had surgery yesterday. The pt denies any chest pain, SOB, nausea, vomiting. ] Objective: [AAOx3. NAD. lying in bed Right leg splint in tact.: WWP toes. able to weakly flex and extend. Sensate though diminished on that side which could be baseline.] Vital Signs Temp 99.3 F 03/06/19 07:57 Pulse 94 03/06/19 07:57 Resp 18 03/06/19 09:31 BP 156/80 03/06/19 07:57 Pulse Ox 98 03/06/19 07:57 Intake & Output 03/05/19 03/06/19 03/06/19 18:59 06:59 18:59 Intake Total 100 2980 Output Total 450 1900 Balance -350 1080 Intake: IV Fluids 100 2080 ABX - CEFAZOLIN 110 LR 1970 NS 50ML, Cefazolin 2G 100 Oral 0 900 Output: Urine 450 1900 Other: # Voids 2 Assessment: [Comminued distal 1/3 tibia and fibula fracture of the right leg POD 1 Plan: 68 yo male with newly diagnosed ALS who lives alone NWB. but may mobilize OOB to chair as tolerated pt with dispo issue as children live in [place] and [place] Also concerned with ALS in combo with splint could result in falls, re injury or further injury will need social worker masters
--- NOTE | 2019-03-06 09:45 | OP ---
OPERATIVE REPORT: DATE OF OPERATION: 03/05/19 - Inpatient, room U 338-01 DATE OF : 52 SURGEON: Joel Hernandez MD ANESTHESIOLOGIST: Tl Stiles MD ANESTHESIA: General. PRE-OP DIAGNOSIS: Displaced/angulated right distal tib-fib fracture. POST-OP DIAGNOSIS: Displaced/angulated right distal tib-fib fracture. OPERATIVE PROCEDURE: Open reduction and internal fixation of right tibia fracture. ESTIMATED BLOOD LOSS: 250 cc. COMPLICATIONS: None. HARDWARE: Arthrex distal tibia plate with locking screws. SUMMARY: Mr. Guerrero is a 69-year-old male who has ALS. He had fallen at home sustaining a tibia fracture and was brought to the emergency room here at [facility] [place], [place]. X- rays were taken which had found a distal tib-fib fracture which was angulated. I was not powertrain control systems engineer when he had come in and the on-call physician had contacted me about whether I would be willing to add him on this upcoming Tuesday , as I kept my schedule light to help out with on-call cases. I did not know he was an inpatient and I thought he woud come in thru ambulatory surgery, He was, however, admitted and had spent a weekend here at the hospital. I discussed with him this morning that an ORIF should work well to re-align the bone and hold this in place while it heals. He reported he already had a footdrop on this side with numbness and had right-sided involvement from his ALS , so already had limitations in that regard with function of the right leg. I warned him we will also keep him nonweightbearing on this side because of the nature of the injury. Other risks of surgery such as infection, nonhealing, blood clots, and embolism were also discussed and he wished to proceed. He is understandably a DNR. DESCRIPTION OF PROCEDURE: The patient was brought to the OR and general anesthesia was established. Tourniquet was placed over the proximal right thigh , but was not used during the case. Right foot and ankle, right lower leg were prepped and then draped. Skin over the incisional area was infiltrated using 0.25% Marcaine with epinephrine and an incision was made just over the anterior tibialis tendon as I wanted to place an anterior lateral plate, but I also wanted to come upwards as I did not want to skewer through the skin. Incision was carried down through the skin and subcutaneous tissues. I caught a small vein and this was tied off and he did not have any pumpers through the case. I was able to develop the interval between the EHL and flexor digitorum tendons and come down to the bone distally at the area of the tibial plafond. From here , I was able to use the periosteal to come underneath anterior tibialis and the neurovascular bundle. Using the Arthrex plate ford, I was able to come upwards and plate slid up actually quite nicely. Coming further upwards, I exposed the fracture site and cleared out hematoma between pulse lavage and curettes. I was able to get a provisional fixation by hand, but with using the lion jaw, the fracture would always slide and rotate out of place. Eventually, I tried with K-wires and did have a provisional fixation with the K- wires, but then I could not place the plate down. K-wire on one side was removed and then the one side with the K-wire was skewed in the butterfly fragment and again I could not keep the fracture well aligned. Eventually, I found the small screw pins that come with the plates and these worked wonderfully. I was able then to skewer the plate down distally, adjust my rotation and positioning and this seemed to work well. Prior to this, I also had tried placing just 1 screw distally and while the screw had seemed to fit nicely, when I went to reduce the fracture my plate was angulated more posteriorly as the plate had shifted and rotated. Those screws had to be removed. This was then when we used the small screw pins and this worked very well where I was able to provisionally fix the plate distally and the plate was nicely seated on his anatomy. C-arm was used to confirm that I was not too low which I previously had been and a lag screw as placed. C-arm was used to check positioning and positioning now appeared to be good and 2 locking screws were placed. Coming up proximally, it could be seen where he wanted to stay a little bit short, but with traction on the heel I was able to place a lag chip crusher operator and this held him out nicely to length, had good cortical contact on the posterior and medial side and just had a little bit of gapping towards the anterior lateral side of the fracture. Considering the troubles we had with reduction, I thought that this would be quite good. Additional screws were placed proximally and the superiormost screw did not have a great bite, but the other 3 had wonderful bites. Coming further down distally, multiple locking screws were placed. C-arm pictures were then taken of the ankle, fracture, and more proximal area in both AP and lateral planes and saved as well. Wound was irrigated using pulse lavage and the subcutaneous tissues were reapproximated using 2-0 Vicryl. Skin was closed using nylon. Sterile dressing and a posterior mold splint were applied in the OR. The patient was than awakened in the OR and was stable on transfer to the recovery room. [id number]/CPS #: [id number] MTDD
[2019-03-06] MEDS: EDARAVONE IV SCH ×2 (09:46→11:15)
[2019-03-06] MEDS: PIGGYBACK IV SCH ×2 (09:46→11:15)
[2019-03-06] MEDS ORDERED: tiZANidine TAB* 2 MG PO PRN (11:48)
--- NOTE | 2019-03-06 11:53 | PN ---
Subjective Date of Service: 03/06/19 Interval History: Patient is feeling consistent 6-7/10 pain in leg with consistent spasms that make the pain go to 10/10. Patient notices minimal difference with Oxycodone, but feels the Tizanidine does help. Patient denies CP, SOB, dizziness, palpitations, or other pain. Family History: Unchanged from Admission Social History: Unchanged from Admission Past Medical History: Unchanged from Admission Objective Active Medications: Acetaminophen (Tylenol Tab*) 650 mg PO Q6H PRN PRN Reason: MILD PAIN or TEMP > 100.4 Last Admin: 03/05/19 21:52 Dose: 650 mg Amitriptyline HCl (Elavil Tab*) 50 mg PO BID [facility] Last Admin: 03/06/19 09:12 Dose: 50 mg Carvedilol (Coreg Tab*) 25 mg PO BID [facility] Last Admin: 03/06/19 09:12 Dose: 25 mg Gabapentin (Neurontin Cap(*)) 100 mg PO BID [facility] Last Admin: 03/06/19 09:12 Dose: 100 mg Heparin Sodium (Porcine) (Heparin Flush Picc/Ml/Cvc(*)) 1 ml FLUSH 0600,1800 [facility]; Protocol Last Admin: 03/06/19 06:21 Dose: Not Given Heparin Sodium (Porcine) (Heparin Vial(*)) 5,000 units SUBCUT Q12H [facility] Last Admin: 03/06/19 09:14 Dose: 5,000 units Magnesium Hydroxide (Milk Of Magnesia Liq*) 30 ml PO BID PRN PRN Reason: CONSTIPATION Last Admin: 03/04/19 10:11 Dose: 30 ml Morphine Sulfate (Morphine Inj (Syringe))*) 2 mg IV Q2H PRN PRN Reason: Pain - Severe/Breakthrough Last Admin: 03/06/19 02:42 Dose: 2 mg Ondansetron HCl (Zofran Inj*) 4 mg IV Q6H PRN PRN Reason: NAUSEA Oxycodone HCl (Roxycodone Tab*) 5 mg PO Q4H PRN PRN Reason: PAIN - MODERATE Oxycodone HCl (Roxycodone Tab*) 10 mg PO Q4H PRN PRN Reason: PAIN - SEVERE Polyethylene Glycol/Electrolytes (Miralax*) 17 gm PO DAILY PRN PRN Reason: CONSTIPATION Riluzole (Riluzole (Nf)) 50 mg PO BID [facility] Last Admin: 03/06/19 09:12 Dose: 50 mg Senna (Senokot 8.6 Mg Tab*) 1 tab PO BEDTIME PRN PRN Reason: CONSTIPATION Last Admin: 03/03/19 20:26 Dose: 1 tab Tizanidine HCl (Zanaflex Tab*) 2 mg PO Q8H PRN PRN Reason: SPASMS Last Admin: 03/06/19 09:24 Dose: 2 mg Vital Signs - 8 hr 03/06/19 03/06/19 03/06/19 04:32 07:57 09:12 Temperature 99.3 F Pulse Rate 94 Respiratory 18 16 18 Rate Blood Pressure 156/80 (mmHg) O2 Sat by Pulse 98 Oximetry 03/06/19 09:31 Temperature Pulse Rate Respiratory 18 Rate Blood Pressure (mmHg) O2 Sat by Pulse Oximetry Oxygen Devices in Use Now: None Appearance: Patient is a 69yo male who appears stated age and is sitting in the bed in [facility]. Eyes: No Scleral Icterus, PERRLA Ears/Nose/Mouth/Throat: NL Teeth, Lips, Gums, Clear Oropharnyx, Mucous Membranes Moist Neck: NL Appearance and Movements; NL JVP, Trachea Midline Respiratory: Symmetrical Chest Expansion and Respiratory Effort, Clear to Auscultation Cardiovascular: NL Sounds; No Murmurs; No JVD, RRR, No Edema Abdominal: NL Sounds; No Tenderness; No Distention, No Hepatosplenomegaly Lymphatic: No Cervical Adenopathy Extremities: No Clubbing, Cyanosis, - - RLE in Cast with good di Skin: No Rash or Ulcers, No Nodules or Sclerosis Neurological: Alert and Oriented x 3, - - Dimininshed sensation, Fasiculations, weakness unchanged. Result Diagrams: 03/06/19 06:40 03/06/19 07:41 Assess/Plan/Problems-Billing Assessment: Patient is a 68yo male with a PMH for ALS, HTN, HLD, here for ankle fracture and baseline weakness awaiting surgery Monday 03/05. - Patient Problems (1) Fracture of right tibia and fibula Current Visit: Yes Status: Acute Code(s): S82.201A - UNSP FRACTURE OF SHAFT OF RIGHT TIBIA, INIT FOR CLOS FX; S82.401A - UNSP FRACTURE OF SHAFT OF RIGHT FIBULA, INIT FOR CLOS FX SNOMED Code(s): 05551303 Comment: - Appreciate orthopedic input. - S/P ORIF 03/05 - Unable to function at home with fracture and ALS - PT/OT reordered, PMRU eval - Pain Control increased (2) ALS (amyotrophic lateral sclerosis) Current Visit: Yes Status: Acute Code(s): G12.21 - AMYOTROPHIC LATERAL SCLEROSIS SNOMED Code(s): 10820436 Comment: - Continue Chronic Treatments - Follow up outpatient neurologist. (3) HTN (hypertension) Current Visit: Yes Status: Acute Code(s): I10 - ESSENTIAL (PRIMARY) HYPERTENSION SNOMED Code(s): 07964729 Comment: - Normotensive - Continue BB and ACEI. (4) DVT prophylaxis Current Visit: Yes Status: Acute Code(s): Z29.9 - ENCOUNTER FOR PROPHYLACTIC MEASURES, UNSPECIFIED SNOMED Code(s): 829737057 Comment: - HSQ Status and Disposition: Pending Surgery, may then need long-term placement vs [facility] vs PMRU
[2019-03-06] MEDS ORDERED: IMMUNE GLOBULN IV ONE (15:00)
[2019-03-06] MEDS: Acetaminophen TAB* 325 MG PO PRN ×2 (17:24→23:45)
[2019-03-07] MEDS: oxyCODONE TAB* 5 MG TAB PO PRN ×3 (03:15→17:04)
[2019-03-07 05:58] LABS: Hematocrit 32 % (42-52); Hemoglobin 11.1 g/dL (14.0-18.0); Mean Corpuscular HGB Conc 35 g/dL (31-36); Mean Corpuscular Hemoglobin 31 pg (27-31); Mean Corpuscular Volume 88 fL (80-94); Mean Platelet Volume 6.9 fL (7.4-10.4); Platelet Count 241 10^3/uL (150-450); Red Blood Count 3.59 10^6 /uL (4.18-5.48); Red Cell Distribution Width 14 % (10-15)
[2019-03-07 06:17] LABS: BUN/Creatinine Ratio 27.9 (8-20); Calcium 8.5 mg/dL (8.6-10.3); EGFR African American 159.1 (>60); EGFR Non-African American 131.5 (>60)
[2019-03-07] MEDS: Gabapentin CAP(*) 100 MG PO SCH ×2 (09:35→22:45)
[2019-03-07] MEDS: Amitriptyline TAB* 50 MG PO SCH ×2 (09:35→22:45)
[2019-03-07] MEDS: Carvedilol TAB* 25 MG PO SCH ×2 (09:35→22:46)
[2019-03-07] MEDS: RILUZOLE 50 MG PO SCH ×2 (09:35→22:46)
[2019-03-07] MEDS: EDARAVONE IV SCH (09:36)
[2019-03-07] MEDS: PIGGYBACK IV SCH (09:36)
[2019-03-07] MEDS: Heparin VIAL(*) 5000 UNITS/ML VIAL (FIVE THOUSAND) SUBCUT SCH ×2 (09:41→22:47)
[2019-03-07] MEDS: Acetaminophen TAB* 325 MG PO PRN (09:43)
[2019-03-07] MEDS: Magnesium Hydroxide LIQ* 30 ML UDC PO PRN (09:46)
[2019-03-07] MEDS ORDERED: IMMUNE GLOBULN IV ONE (11:00)
--- NOTE | 2019-03-07 11:24 | PN ---
Progress Note - Progress Note Date of Service: 03/07/19 Note: POD 2: s/p right tibia ORIF - patient resting comfortably in bed with pain well managed. He denies CP, SOB or calf pain. Splint is C/D/I. He has altered but intact sensation in the digits of the right foot with brisk cap refill. Skin PWD. Patient awaiting placement in rehab after social work assessment. Orthopedically stable at this time. Continue pain management and we will continue to follow.
--- NOTE | 2019-03-07 16:21 | PN ---
Subjective Date of Service: 03/07/19 Interval History: Mr. Guerrero states that he has some discomfort in the RLE rated at 2/10. Ot has been working with PT and has been up and sitting at edge of bed. He has no other complaints today. Family History: Unchanged from Admission Social History: Unchanged from Admission Past Medical History: Unchanged from Admission Objective Active Medications: Acetaminophen (Tylenol Tab*) 650 mg PO Q6H PRN PRN Reason: MILD PAIN or TEMP > 100.4 Last Admin: 03/07/19 09:43 Dose: 650 mg Amitriptyline HCl (Elavil Tab*) 50 mg PO BID [facility] Last Admin: 03/07/19 09:35 Dose: 50 mg Carvedilol (Coreg Tab*) 25 mg PO BID [facility] Last Admin: 03/07/19 09:35 Dose: 25 mg Gabapentin (Neurontin Cap(*)) 100 mg PO BID [facility] Last Admin: 03/07/19 09:35 Dose: 100 mg Heparin Sodium (Porcine) (Heparin Flush Picc/Ml/Cvc(*)) 1 ml FLUSH 0600,1800 [facility]; Protocol Last Admin: 03/07/19 05:49 Dose: 1 ml Heparin Sodium (Porcine) (Heparin Vial(*)) 5,000 units SUBCUT Q12H [facility] Last Admin: 03/07/19 09:41 Dose: 5,000 units Magnesium Hydroxide (Milk Of Magnesia Liq*) 30 ml PO BID PRN PRN Reason: CONSTIPATION Last Admin: 03/07/19 09:46 Dose: 30 ml Morphine Sulfate (Morphine Inj (Syringe))*) 2 mg IV Q2H PRN PRN Reason: Pain - Severe/Breakthrough Last Admin: 03/06/19 02:42 Dose: 2 mg Ondansetron HCl (Zofran Inj*) 4 mg IV Q6H PRN PRN Reason: NAUSEA Oxycodone HCl (Roxycodone Tab*) 5 mg PO Q4H PRN PRN Reason: PAIN - MODERATE Oxycodone HCl (Roxycodone Tab*) 10 mg PO Q4H PRN PRN Reason: PAIN - SEVERE Last Admin: 03/07/19 12:12 Dose: 10 mg Polyethylene Glycol/Electrolytes (Miralax*) 17 gm PO DAILY PRN PRN Reason: CONSTIPATION Riluzole (Riluzole (Nf)) 50 mg PO BID [facility] Last Admin: 03/07/19 09:35 Dose: 50 mg Senna (Senokot 8.6 Mg Tab*) 1 tab PO BEDTIME PRN PRN Reason: CONSTIPATION Last Admin: 03/03/19 20:26 Dose: 1 tab Tizanidine HCl (Zanaflex Tab*) 4 mg PO Q6H PRN PRN Reason: SPASMS Last Admin: 03/06/19 15:51 Dose: 4 mg Vital Signs: Temp Pulse Resp BP Pulse Ox 99.4 F 92 16 118/70 95 03/07/19 16:03 03/07/19 16:03 03/07/19 16:03 03/07/19 16:03 03/07/19 16:00 Oxygen Devices in Use Now: None Appearance: Mr. Guerrero is an average weight 69yom who is sitting up in bed. He appears to be in no acute distress. Eyes: No Scleral Icterus, PERRLA Ears/Nose/Mouth/Throat: NL Teeth, Lips, Gums, Clear Oropharnyx, Mucous Membranes Moist Neck: NL Appearance and Movements; NL JVP, Trachea Midline Respiratory: Symmetrical Chest Expansion and Respiratory Effort, Clear to Auscultation Cardiovascular: NL Sounds; No Murmurs; No JVD, RRR, No Edema Abdominal: NL Sounds; No Tenderness; No Distention, No Hepatosplenomegaly Extremities: No Edema, No Clubbing, Cyanosis, - - RLE with CDI dressing in place ; equal sensation to b/l LE Neurological: Alert and Oriented x 3 Result Diagrams: 03/07/19 05:51 03/07/19 05:51 Assess/Plan/Problems-Billing Assessment: Patient is a 68yo male with a PMH for ALS, HTN, HLD, here for ankle fracture and baseline weakness, post op R ORIF tibia Monday 03/05. - Patient Problems (1) Fracture of right tibia and fibula Comment: -appreciate orthopedic input -s/p ORIF 03/05 -unable to function at home with fracture and ALS -PT/OT reordered -PMRU eval pending -continue pain control (2) ALS (amyotrophic lateral sclerosis) Comment: -continue chronic treatments -follow up outpatient neurologist (3) HTN (hypertension) Comment: -SBP 100-110's -continue BB (4) DVT prophylaxis Comment: -HSQ (5) DNR (do not resuscitate) Status and Disposition: May then need buttermilk drier operator placement vs [facility] vs PMRU.
[2019-03-07] MEDS ORDERED: NS 0.9% 1000 ML** 1,000 ML IV SCH (16:30)
[2019-03-07] MEDS: Cyclobenzaprine TAB* 10 MG PO PRN (22:45)
[2019-03-08 06:16] LABS: BUN/Creatinine Ratio 30.9 (8-20); Calcium 8.8 mg/dL (8.6-10.3); EGFR African American 179.2 (>60); EGFR Non-African American 148.1 (>60); Potassium 4.1 mmol/L (3.5-5.0)
[2019-03-08] MEDS: PIGGYBACK IV SCH (09:03)
[2019-03-08] MEDS: EDARAVONE IV SCH (09:03)
[2019-03-08] MEDS: Carvedilol TAB* 25 MG PO SCH ×2 (09:16→20:44)
[2019-03-08] MEDS: Gabapentin CAP(*) 100 MG PO SCH ×2 (09:16→20:43)
[2019-03-08] MEDS: Amitriptyline TAB* 50 MG PO SCH ×2 (09:17→20:44)
[2019-03-08] MEDS: Heparin VIAL(*) 5000 UNITS/ML VIAL (FIVE THOUSAND) SUBCUT SCH ×2 (09:17→20:45)
[2019-03-08] MEDS: RILUZOLE 50 MG PO SCH ×2 (09:17→20:44)
[2019-03-08] MEDS: Magnesium Hydroxide LIQ* 30 ML UDC PO PRN (09:20)
--- NOTE | 2019-03-08 10:00 | PN ---
Progress Note - Progress Note Date of Service: 03/08/19 SOAP: Subjective: []Pt seen at bedside. Pain of the RLE is well controlled. Denies CP, SOB, dizziness, nausea, headache, abd pain. At baseline he has limited ability to utilize right arm or leg, stating ALS is progressing faster than he anticipated. He does not feel his right arm is reliable/ strong enough to support him using a rolling walker. Preop function of the right leg was described as "floppy". Objective: []Gen: BAD, laying comfortably in bed RLE in splint. passive f/e MTPs nonpainful. Toes are warm and cap refill less than two seconds distally, sensation is decreased distally which is reported as consistent with baseline L calf supple and nontender Assessment: []Sp ORIF R Tibia ALS with limited use of RUE and RLE Plan: []NWB RLE Keep splint CDI Heparin for dvt prophy. Okay to transition to lovenox 40 mg sq qd x 30 days post op when medicine team feels this is appropriate + BC Staph capitus will discuss with medicine team Vital Signs Temp 97.6 F 03/08/19 07:41 Pulse 94 03/08/19 07:41 Resp 16 03/08/19 09:16 BP 135/78 03/08/19 07:41 Pulse Ox 96 03/08/19 07:41 Intake & Output 03/07/19 03/08/19 03/08/19 18:59 06:59 18:59 Intake Total 848 340 976 Output Total 900 2525 400 Balance -52 -2185 576 Intake: IV Fluids 976 NS (0.9%) 976 IVPB 598 IV IGG 398 Radicava 200 Oral 250 340 Output: Urine 900 2525 400 Laboratory Last Values WBC 11.0 10^3/uL (3.5-10.8) H 03/07/19 05:51 RBC 3.59 10^6 /uL (4.18-5.48) L 03/07/19 05:51 Hgb 11.1 g/dL (14.0-18.0) L 03/07/19 05:51 Hct 32 % (42-52) L 03/07/19 05:51 MCV 88 fL (80-94) 03/07/19 05:51 MCH 31 pg (27-31) 03/07/19 05:51 MCHC 35 g/dL (31-36) 03/07/19 05:51 RDW 14 % (10-15) 03/07/19 05:51 Plt Count 241 10^3/uL (150-450) 03/07/19 05:51 MPV 6.9 fL (7.4-10.4) L 03/07/19 05:51 Neut % (Auto) 68.2 % 03/01/19 17:50 Lymph % (Auto) 18.8 % 03/01/19 17:50 Alfalfa % (Auto) 11.1 % 03/01/19 17:50 Eos % (Auto) 0.8 % 03/01/19 17:50 Baso % (Auto) 1.1 % 03/01/19 17:50 Absolute Neuts (auto) 6.7 10^3/ul (1.5-7.7) 03/01/19 17:50 Absolute Lymphs (auto) 1.8 10^3/ul (1.0-4.8) 03/01/19 17:50 Absolute Monos (auto) 1.1 10^3/ul (0-0.8) H 03/01/19 17:50 Absolute Eos (auto) 0.1 10^3/ul (0-0.6) 03/01/19 17:50 Absolute Basos (auto) 0.1 10^3/ul (0-0.2) 03/01/19 17:50 Absolute Nucleated RBC 0.0 10^3/ul 03/01/19 17:50 Nucleated RBC % 0.5 03/01/19 17:50 Sodium 128 mmol/L (135-145) L 03/08/19 05:40 Potassium 4.1 mmol/L (3.5-5.0) 03/08/19 05:40 Chloride 97 mmol/L (101-111) L 03/08/19 05:40 Carbon Dioxide 27 mmol/L (22-32) 03/08/19 05:40 Anion Gap 4 mmol/L (2-11) 03/08/19 05:40 BUN 17 mg/dL (6-24) 03/08/19 05:40 Creatinine 0.55 mg/dL (0.67-1.17) L 03/08/19 05:40 Est GFR ( Amer) 179.2 (>60) 03/08/19 05:40 Est GFR (Non-Af Amer) 148.1 (>60) 03/08/19 05:40 BUN/Creatinine Ratio 30.9 (8-20) H 03/08/19 05:40 Glucose 99 mg/dL (70-100) 03/08/19 05:40 Calcium 8.8 mg/dL (8.6-10.3) 03/08/19 05:40 Total Bilirubin 0.40 mg/dL (0.2-1.0) 03/06/19 07:41 AST 22 U/L (13-39) 03/06/19 07:41 ALT 19 U/L (7-52) 03/06/19 07:41 Alkaline Phosphatase 70 U/L (34-104) 03/06/19 07:41 Total Protein 5.9 g/dL (6.4-8.9) L 03/06/19 07:41 Albumin 3.0 g/dL (3.2-5.2) L 03/06/19 07:41 Globulin 2.9 g/dL (2-4) 03/06/19 07:41 Albumin/Globulin Ratio 1.0 (1-3) 03/06/19 07:41 Hepatitis C Antibody Negative (Negative) 03/01/19 17:50 Hepatitis C Ab Index 0.04 s/c 03/01/19 17:50
[2019-03-08] MEDS ORDERED: Vancomycin(*) 1,250 MG in NS 0.9% 250 ML* 250 ML IVPB ONE (10:29)
[2019-03-08] MEDS ORDERED: Vancomycin per Pharmacy* NOTE FOLLOW UP SCH (11:00)
[2019-03-08] MEDS: Cyclobenzaprine TAB* 10 MG PO PRN (11:06)
--- NOTE | 2019-03-08 11:29 | PN ---
Subjective Date of Service: 03/08/19 Interval History: Mr. Guerrero c/o increased urinary frequency; denies dysuria, retention, and c/o urgency, which he states is chronic. He states that his RLE pain fluctuates between 2 and 8, but is well controlled with pain medication. He c/o excessive tearing in b/l eyes yesterday, since resolved; eyes are itching. Family History: Unchanged from Admission Social History: Unchanged from Admission Past Medical History: Unchanged from Admission Objective Active Medications: Acetaminophen (Tylenol Tab*) 650 mg PO Q6H PRN PRN Reason: MILD PAIN or TEMP > 100.4 Last Admin: 03/07/19 09:43 Dose: 650 mg Amitriptyline HCl (Elavil Tab*) 50 mg PO BID [facility] Last Admin: 03/08/19 09:17 Dose: 50 mg Carvedilol (Coreg Tab*) 25 mg PO BID [facility] Last Admin: 03/08/19 09:16 Dose: 25 mg Cyclobenzaprine HCl (Flexeril Tab*) 10 mg PO TID PRN PRN Reason: SPASMS Last Admin: 03/08/19 11:06 Dose: 10 mg Erythromycin (Erythromycin Opth Oint*) 1 applic BOTH EYES QID [facility] Stop: 03/15/19 12:59 Gabapentin (Neurontin Cap(*)) 100 mg PO BID [facility] Last Admin: 03/08/19 09:16 Dose: 100 mg Heparin Sodium (Porcine) (Heparin Flush Picc/Ml/Cvc(*)) 1 ml FLUSH 0600,1800 [facility]; Protocol Last Admin: 03/08/19 05:41 Dose: 1 ml Heparin Sodium (Porcine) (Heparin Vial(*)) 5,000 units SUBCUT Q12H [facility] Last Admin: 03/08/19 09:17 Dose: 5,000 units Vancomycin HCl 1,250 mg/ (Sodium Chloride) 250 mls @ 166.667 mls/hr IVPB ONCE ONE; Protocol Stop: 03/08/19 11:58 Last Admin: 03/08/19 10:57 Dose: 166.667 mls/hr Magnesium Hydroxide (Milk Of Magnesia Liq*) 30 ml PO BID PRN PRN Reason: CONSTIPATION Last Admin: 03/08/19 09:20 Dose: 30 ml Morphine Sulfate (Morphine Inj (Syringe))*) 2 mg IV Q2H PRN PRN Reason: Pain - Severe/Breakthrough Last Admin: 03/06/19 02:42 Dose: 2 mg Ondansetron HCl (Zofran Inj*) 4 mg IV Q6H PRN PRN Reason: NAUSEA Oxycodone HCl (Roxycodone Tab*) 5 mg PO Q4H PRN PRN Reason: PAIN - MODERATE Oxycodone HCl (Roxycodone Tab*) 10 mg PO Q4H PRN PRN Reason: PAIN - SEVERE Last Admin: 03/07/19 17:04 Dose: 10 mg Pharmacy Consult (Vancomycin Per Pharmacy*) 1 note FOLLOW UP .VANC PER PHARMACY [facility]; Protocol Polyethylene Glycol/Electrolytes (Miralax*) 17 gm PO DAILY PRN PRN Reason: CONSTIPATION Riluzole (Riluzole (Nf)) 50 mg PO BID [facility] Last Admin: 03/08/19 09:17 Dose: 50 mg Senna (Senokot 8.6 Mg Tab*) 1 tab PO BEDTIME PRN PRN Reason: CONSTIPATION Last Admin: 03/03/19 20:26 Dose: 1 tab Vital Signs: Temp Pulse Resp BP Pulse Ox 97.6 F 94 17 135/78 96 03/08/19 07:41 03/08/19 07:41 03/08/19 11:06 03/08/19 07:41 03/08/19 07:41 Oxygen Devices in Use Now: None Appearance: Mr. Guerrero is an average weight 69yom who is sitting up in bed. He appears to be in no acute distress and is resting comfortably. Eyes: No Scleral Icterus, PERRLA, - - B/l scleral injection with L>R; thick, yellow, crusty drainage present to b/l lids Ears/Nose/Mouth/Throat: NL Teeth, Lips, Gums, Clear Oropharnyx, Mucous Membranes Moist Neck: NL Appearance and Movements; NL JVP, Trachea Midline Respiratory: Symmetrical Chest Expansion and Respiratory Effort, Clear to Auscultation Cardiovascular: NL Sounds; No Murmurs; No JVD, RRR, No Edema Abdominal: NL Sounds; No Tenderness; No Distention, No Hepatosplenomegaly Extremities: - - RLE with splint in place; SOY overlying is CDI; sensation decreased to RLE; unable to move distal digits on RLEat baseline Neurological: Alert and Oriented x 3 Result Diagrams: 03/07/19 05:51 03/08/19 05:40 Microbiology and Other Data: Microbiology 03/07/19 00:40 Aerobic Blood Culture - Preliminary Blood Venous Staphylococcus Capitis Anaerobic Blood Culture - Preliminary Blood MRSA/MSSA (PCR) - Final Mrsa Negative S.aureus Negative 03/07/19 00:32 Aerobic Blood Culture - Preliminary Blood Venous No Growth Day 1 Anaerobic Blood Culture - Preliminary No Growth Day 1 Assess/Plan/Problems-Billing Assessment: Patient is a 68yo male with a PMH for ALS, HTN, HLD, here for ankle fracture and baseline weakness, post op R ORIF tibia Monday 03/05. - Patient Problems (1) Fracture of right tibia and fibula Comment: -appreciate orthopedic input -s/p ORIF 03/05 -unable to function at home with fracture and ALS -PT/OT reordered -PMRU eval pending -continue pain control (2) Frequency of urination Comment: -pt reports increased frequency without dysuria, retention, change in urgency -UA negative (3) Bacteremia Comment: -staph capitis in 1/2 bottles -start vanco -unknown source -will consult ID in a.m. (4) Hyponatremia Comment: -worsening hyponatremia -asymptomatic -likely related to IVIG -continue to monitor for symptoms (5) Bacterial conjunctivitis of both eyes Comment: -b/l scleral injection with thick, yellow, crusty drainage to lids, L>R -start erythromycin ointment b/l (6) ALS (amyotrophic lateral sclerosis) Comment: -continue chronic treatments -follow up outpatient neurologist (7) HTN (hypertension) Comment: -SBP 100-110's -continue BB (8) DVT prophylaxis Comment: -HSQ (9) DNR (do not resuscitate) Status and Disposition: May then need predatory animal exterminator placement vs [facility] vs [facility]RU.
[2019-03-08] MEDS: Erythromycin OPTH OINT* APPLIC OINT BOTH EYES SCH ×3 (13:44→20:45)
[2019-03-08 14:51] LABS: Urine Appearance Clear; Urine Bilirubin Negative (Negative); Urine Blood Negative (Negative); Urine Color Yellow; Urine Glucose Negative (Negative); Urine Ketones Negative (Negative); Urine Nitrite Negative (Negative); Urine Protein Negative (Negative); Urine Urobilinogen Negative (Negative)
[2019-03-08] MEDS: oxyCODONE TAB* 5 MG TAB PO PRN ×2 (16:54→21:01)
[2019-03-08] MEDS ORDERED: NS 0.9% 250 ML* 250 ML ONE (20:32)
[2019-03-08] MEDS: Vancomycin(*) 1,000 MG in NS 0.9% 250 ML* 250 ML IV SCH (20:44)
[2019-03-08] MEDS: Acetaminophen TAB* 325 MG PO PRN (21:01)
[2019-03-09] MEDS: Vancomycin(*) 1,000 MG in NS 0.9% 250 ML* 250 ML IV SCH ×3 (04:06→20:22)
[2019-03-09 05:59] LABS: ABS Basophils 0.1 10^3/ul (0-0.2); ABS Eosinophils 0.1 10^3/ul (0-0.6); ABS Monocytes 1.1 10^3/ul (0-0.8); ABS Neutrophils 3.5 10^3/ul (1.5-7.7); Eosinophil % 1.8 %; Hematocrit 29 % (42-52); Lymphocyte % 29.6 %; Mean Corpuscular HGB Conc 35 g/dL (31-36); Mean Corpuscular Hemoglobin 31 pg (27-31); Mean Corpuscular Volume 90 fL (80-94); Nucleated Red Blood Cells % 0.1; Platelet Count 334 10^3/uL (150-450); Red Blood Count 3.19 10^6 /uL (4.18-5.48); Red Cell Distribution Width 13 % (10-15); White Blood Count 6.7 10^3/uL (3.5-10.8)
[2019-03-09 06:21] LABS: EGFR African American 162.1 (>60); Potassium 4.3 mmol/L (3.5-5.0)
[2019-03-09] MEDS: Heparin VIAL(*) 5000 UNITS/ML VIAL (FIVE THOUSAND) SUBCUT SCH ×2 (08:47→20:23)
[2019-03-09] MEDS: Carvedilol TAB* 25 MG PO SCH ×2 (08:48→20:25)
[2019-03-09] MEDS: Gabapentin CAP(*) 100 MG PO SCH ×2 (08:48→20:24)
[2019-03-09] MEDS: Erythromycin OPTH OINT* APPLIC OINT BOTH EYES SCH ×5 (08:48→20:32)
[2019-03-09] MEDS: Amitriptyline TAB* 50 MG PO SCH ×2 (08:48→20:25)
[2019-03-09] MEDS: RILUZOLE 50 MG PO SCH ×2 (08:48→20:23)
--- NOTE | 2019-03-09 11:12 | PN ---
Progress Note - Progress Note Date of Service: 03/09/19 SOAP: Subjective: Pt seen at bedside. Pain of the RLE is well controlled. Denies CP, SOB, dizziness, nausea, headache, abd pain. At baseline he has limited ability to utilize right arm or leg, stating ALS is progressing faster than he anticipated. He does not feel his right arm is reliable/ strong enough to support him using a rolling walker. Preop function of the right leg was described as "floppy". Objective: []Gen: NAD, laying comfortably in bed RLE in splint. Splint is changed today. The incision is c/d/i without purulence , mild bloody drainage present on the 4x4s. Splint replaced with new dressing. passive f/e MTPs nonpainful. Toes are warm and cap refill less than two seconds distally, sensation is decreased distally which is reported as consistent with baseline L calf supple and nontender Vital Signs Temp 97.4 F 03/09/19 07:33 Pulse 81 03/09/19 07:33 Resp 18 03/09/19 10:23 BP 110/69 03/09/19 07:33 Pulse Ox 95 03/09/19 07:33 Intake & Output 03/08/19 03/09/19 03/09/19 18:59 06:59 18:59 Intake Total 2271 890 Output Total 1250 800 825 Balance 1021 90 -825 Intake: IV Fluids 1051 20 NS (0.9%) 1051 20 IVPB 740 270 ABX - VANCOMYCIN 540 270 Radicava 200 Oral 480 600 Output: Urine 1250 800 825 Other: Estimated Void Medium Date of Last Bowel 03/08/19 Movement Estimated Stool Amount Large # Voids 1 Assessment: []Sp ORIF R Tibia ALS with limited use of RUE and RLE Plan: []NWB RLE Keep splint CDI, daily dressing changes by ortho to evaluate the incision. Heparin for dvt prophy. Okay to transition to lovenox 40 mg sq qd x 30 days post op when medicine team feels this is appropriate + BC Staph capitus will discuss with medicine team and ID. Will await ID recommendations
[2019-03-09] MEDS ORDERED: Vancomycin Trough Check NOTE FOLLOW UP ONE (12:00)
--- NOTE | 2019-03-09 14:13 | CONS ---
CONSULTATION REPORT: DATE OF CONSULT: 03/09/19 PRIMARY CARE PROVIDER: Dr. David Cm. PROVIDER REQUESTING CONSULTATION: GABBY Hathaway CONSULTING SERVICE: Infectious Disease. PROVIDER: Nuha Hdz NP ATTENDING PROVIDER: Dr. Be Blood * (dictated by NUHA HDZ NP). REASON FOR CONSULT: Fever and staph capitis in 2 out of 4 blood cultures. IMPRESSION: 1. Staph capitis bacteremia. Two out of eight bottles positive, drawn on 03/07. He underwent ORIF of the left tibia on 03/05/19. The patient has since been afebrile with no leukocytosis. He did have initial leukocytosis that resolved. Urinalysis negative. No signs of infection. The patient denies any artificial hardware. Has been on vancomycin. Suspect this represents a contamination and not a pathogen. 2. Postoperative fever. Blood cultures with 2/8 bottles positive for staph capitis per above. Has been on Vancomycin. Has been afebrile since 03/06/19. Differential diagnosis includes reactive fever from surgery, UTI, pneumonia, aspiration, or surgical site infection. The surgical site is benign. Urine culture with no growth. Denies respiratory symptoms or urinary symptoms. 3. Amyotrophic lateral sclerosis. RECOMMENDATIONS/PLAN: Recommend checking a chest xray to rule out aspiration pneumonia as patients with ALS often aspirate. If this is negative for respiratory process, recommend discontinuing Vancomycin. We will continue to follow along. HISTORY OF PRESENT ILLNESS: Mr. Guerrero is a 69-year-old male with past medical history significant for ALS, hypertension, hyperlipidemia, idiopathic cardiomyopathy, ehrlichiosis, idiopathic polyneuropathy, who had a mechanical fall at home and presented to the emergency room on 03/01/19. The patient was found to have comminuted fracture of the tibia and fibula of the right. He was placed in a splint due to concern for him being unable to care for himself, he was referred to the hospitalist for admission. While in the hospital, he underwent an ORIF of the right tibia on 03/05/19. On 03/06/19, he developed fevers with a temperature maximum of 101.5 that had improved for a few hours and then 101.6. He had no fever since. Had blood cultures drawn early in the morning of 03/07/19, showing 2 positive for Staph capitis. Later that day, 2 separate blood cultures were obtained showing no growth. He has otherwise remained afebrile. Had leukocytosis 03/06/19 and 03/26 that has since resolved. On 03/08/19, had negative urinalysis. The patient has otherwise been doing well. Denies any continued fevers or chills. He does state that he just feels unwell with generalized weakness and he does have a history of ALS. He denies any muscle pain, joint pain, rash, diarrhea, constipation, urinary symptoms such as urgency, frequency, dysuria. He denies any recent travel. He denies neck or back pain. He does not have any artificial hardware present and he has been on vancomycin. PAST MEDICAL HISTORY: 1. ALS. 2. Hypertension. 3. Hyperlipidemia. 4. Idiopathic cardiomyopathy. 5. Ehrlichiosis. 6. Idiopathic polyneuropathy. PAST SURGICAL HISTORY: None. MEDICATIONS: Home medications: 1. Amitriptyline 100 mg by mouth twice daily. 2. Accupril 10 mg by mouth daily. 3. Carvedilol 25 mg by mouth twice daily. 4. Gabapentin 100 mg by mouth daily. 5. Riluzole 50 mg by mouth twice daily. 6. Radicava 30 mg IV for 10 days, then 14 days off. 7. IVIG receives for 2 days every 3 weeks. Missed his last scheduled dose on and 03/06/19. Hospital medications: 1. Acetaminophen 650 mg by mouth every 6 hours as needed for fever or pain. 2. Amitriptyline 50 mg by mouth twice daily. 3. Carvedilol 25 mg by mouth twice daily. 4. Flexeril 10 mg by mouth 3 times daily as needed for muscle spasms. 5. Erythromycin apply to both eyes 4 times daily. 6. Gabapentin 100 mg by mouth twice daily. 7. Heparin sodium 1 mL flush twice daily. 8. Heparin sodium 5000 units subcutaneous every 12 hours. 9. Milk of magnesia 30 mL by mouth twice daily as needed for constipation. 10. Zofran 4 mg IV every 6 hours as needed for nausea. 11. Oxycodone 5 to 10 mg by mouth every 4 hours as needed for pain. 12. MiraLAX 17 g by mouth twice daily as needed for constipation. 13. Riluzole 50 mg by mouth twice daily. 14. Senokot 8.6 mg by mouth at bedtime. 15. Vancomycin 1000 mg IV every 8 hours. ALLERGIES: No known drug allergies. FAMILY HISTORY: Denies family history of recurrent, resistant infections. Father passed at age 94. Denies family history of coronary artery disease, diabetes. Mother with a history of uterine cancer and passed at age 89. SOCIAL HISTORY: Has a history of alcohol abuse, but rarely drinks alcohol now. He is a former smoker, quitting in 1984. He denies recreational drug use. REVIEW OF SYSTEMS: I performed a 10-point review of systems. All the pertinent positives and negatives are mentioned in the history of present illness. Remaining review of systems are negative. PHYSICAL EXAM: Vital Signs: Temperature 97.4, heart rate 81, respiratory rate 16, O2 sat 95% on room air, blood pressure 110/69. General Appearance: He is alert, appears to be in no acute distress. Head: Normocephalic, atraumatic. Extraocular movements are intact. There is no subconjunctival hemorrhage. Moist mucous membranes. Neck: Supple. No lymphadenopathy. Neurological: Alert and oriented x4. Cranial nerves II through XII are grossly intact. Cardiovascular: Regular rate and rhythm. S1, S2 present. No murmurs, rubs or gallops. Respiratory: No accessory muscle use. Lungs are clear to auscultation bilateral. Abdomen: Bowel sounds present. Abdomen soft, nontender, nondistended. Extremities: No lower extremity edema. DP and PT pulses are 2+ and symmetric. Musculoskeletal: No clubbing or cyanosis noted. There was good strength in all extremities. Psychological: Calm and cooperative. Skin: No rashes or abnormalities seen. He has an incision to the left lower extremity that is well approximated with no erythema or drainage noted. DIAGNOSTIC STUDIES/LAB DATA: Sodium 131, potassium 4.3, chloride 100, CO2 of 26 , BUN 21, creatinine 0.6. Glucose 96. White blood cell count 6.7, hemoglobin 10.5, hematocrit 29, platelet count 334. Please see impression and recommendations outlined above. Recommendations have been discussed with GABBY Hathaway. The case has been discussed with my attending, Dr. Be Blood, who agrees with the plan of care. Reviewed by REED OQUENDO 03/12/19 1111 [id number]/CPS #: [id number] MTDD
[2019-03-09] MEDS: Cyclobenzaprine TAB* 10 MG PO PRN ×2 (14:38→20:25)
--- NOTE | 2019-03-09 17:45 | PN ---
Subjective Date of Service: 03/09/19 Interval History: Mr. Guerrero states that he is having occasional muscl spasms described as "twitching" in LLE and some mild discomfort rated at 2/10 currently. He denies headache, head wound or abscess. He is considering d/c to home vs. [facility] at this time. He has no complaints at this time. Family History: Unchanged from Admission Social History: Unchanged from Admission Past Medical History: Unchanged from Admission Objective Active Medications: Acetaminophen (Tylenol Tab*) 650 mg PO Q6H PRN PRN Reason: MILD PAIN or TEMP > 100.4 Last Admin: 03/08/19 21:01 Dose: 650 mg Amitriptyline HCl (Elavil Tab*) 50 mg PO BID [facility] Last Admin: 03/09/19 08:48 Dose: 50 mg Carvedilol (Coreg Tab*) 25 mg PO BID [facility] Last Admin: 03/09/19 08:48 Dose: 25 mg Cyclobenzaprine HCl (Flexeril Tab*) 10 mg PO TID PRN PRN Reason: SPASMS Last Admin: 03/09/19 14:38 Dose: 10 mg Erythromycin (Erythromycin Opth Oint*) 1 applic BOTH EYES QID [facility] Stop: 03/15/19 12:59 Last Admin: 03/09/19 16:19 Dose: 1 applic Gabapentin (Neurontin Cap(*)) 100 mg PO BID [facility] Last Admin: 03/09/19 08:48 Dose: 100 mg Heparin Sodium (Porcine) (Heparin Flush Picc/Ml/Cvc(*)) 1 ml FLUSH 0600,1800 [facility]; Protocol Last Admin: 03/09/19 17:07 Dose: Not Given Heparin Sodium (Porcine) (Heparin Vial(*)) 5,000 units SUBCUT Q12H [facility] Last Admin: 03/09/19 08:47 Dose: 5,000 units Vancomycin HCl 1,000 mg/ (Sodium Chloride) 250 mls @ 166.667 mls/hr IV Q8H [facility] Last Admin: 03/09/19 12:43 Dose: 166.667 mls/hr Magnesium Hydroxide (Milk Of Magnesia Liq*) 30 ml PO BID PRN PRN Reason: CONSTIPATION Last Admin: 03/08/19 09:20 Dose: 30 ml Ondansetron HCl (Zofran Inj*) 4 mg IV Q6H PRN PRN Reason: NAUSEA Oxycodone HCl (Roxycodone Tab*) 5 mg PO Q4H PRN PRN Reason: PAIN - MODERATE Oxycodone HCl (Roxycodone Tab*) 10 mg PO Q4H PRN PRN Reason: PAIN - SEVERE Last Admin: 03/08/19 21:01 Dose: 10 mg Pharmacy Consult (Vancomycin Per Pharmacy*) 1 note FOLLOW UP .VANC PER PHARMACY L[facility]I; Protocol Pharmacy Profile Note (Vancomycin Trough Check) 1 note FOLLOW UP 1130 ONE Stop: 03/10/19 11:31 Polyethylene Glycol/Electrolytes (Miralax*) 17 gm PO DAILY PRN PRN Reason: CONSTIPATION Riluzole (Riluzole (Nf)) 50 mg PO BID [facility] Last Admin: 03/09/19 08:48 Dose: 50 mg Senna (Senokot 8.6 Mg Tab*) 1 tab PO BEDTIME PRN PRN Reason: CONSTIPATION Last Admin: 03/03/19 20:26 Dose: 1 tab Vital Signs: Temp Pulse Resp BP Pulse Ox 98.2 F 91 18 113/68 96 03/09/19 16:19 03/09/19 16:19 03/09/19 16:19 03/09/19 16:19 03/09/19 16:19 Oxygen Devices in Use Now: None Appearance: Mr. Guerrero is a white male who is sitting in chair with LE elevated. He appears to be in no acute distress. Eyes: No Scleral Icterus, PERRLA Ears/Nose/Mouth/Throat: NL Teeth, Lips, Gums, Clear Oropharnyx, Mucous Membranes Moist, - - NC/AT without head wound or abscess Neck: NL Appearance and Movements; NL JVP, Trachea Midline Respiratory: Symmetrical Chest Expansion and Respiratory Effort, Clear to Auscultation Cardiovascular: NL Sounds; No Murmurs; No JVD, RRR, No Edema Abdominal: NL Sounds; No Tenderness; No Distention, No Hepatosplenomegaly Extremities: No Edema, No Clubbing, Cyanosis, - - RLE with CDI dressing in place ; unable to move distal digits (baseline); sensation R<L; cap refill intact Neurological: Alert and Oriented x 3 Result Diagrams: 03/09/19 05:43 03/09/19 05:43 Microbiology and Other Data: Microbiology 03/07/19 00:40 Aerobic Blood Culture - Preliminary Blood Venous Staphylococcus Capitis Anaerobic Blood Culture - Preliminary Blood MRSA/MSSA (PCR) - Final Mrsa Negative S.aureus Negative 03/07/19 00:32 Aerobic Blood Culture - Preliminary Blood Venous No Growth Day 1 Anaerobic Blood Culture - Preliminary No Growth Day 1 Assess/Plan/Problems-Billing Assessment: Patient is a 68yo male with a PMH for ALS, HTN, HLD, here for ankle fracture and baseline weakness, post op R ORIF tibia Monday 03/05. - Patient Problems (1) Fracture of right tibia and fibula Comment: -appreciate orthopedic input -s/p ORIF 03/05 -NWB RLE -unable to function at home with fracture and ALS -PT/OT reordered -[facility] denied acceptance; pending [facility] placement -continue pain control (2) Bacteremia Comment: -staph capitis in 2/4 bottles -start vanco -likely contaminant -ID recommends d/c vanco (3) Frequency of urination Comment: -pt reports increased frequency without dysuria, retention, change in urgency -UA negative (4) Hyponatremia Comment: -improving -asymptomatic -likely related to IVIG -continue to monitor for symptoms (5) Bacterial conjunctivitis of both eyes Comment: -b/l scleral injection with thick, yellow, crusty drainage to lids, L>R -improving -continue erythromycin ointment b/l for a total of 7 days (6) ALS (amyotrophic lateral sclerosis) Comment: -continue chronic treatments -follow up outpatient neurologist (7) HTN (hypertension) Comment: -SBP 100-110's -continue BB (8) DVT prophylaxis Comment: -HSQ (9) DNR (do not resuscitate) Status and Disposition: May then need longterm placement vs [facility] vs [facility].
[2019-03-09] MEDS ORDERED: Alteplase (CATHFLO)* 2 MG VIAL IV ONE (19:38)
[2019-03-09] MEDS: oxyCODONE TAB* 5 MG TAB PO PRN (20:25)
[2019-03-10] MEDS: Vancomycin(*) 1,000 MG in NS 0.9% 250 ML* 250 ML IV SCH (03:58)
--- NOTE | 2019-03-10 09:05 | PN ---
Subjective Date of Service: 03/10/19 Interval History: Mr. Guerrero c/o sweats this morning without fever or chills. He c/o R leg spasms post-operatively; he notes that muscle relaxers improve these spasms. He had a BM appx 2 days ago and denies frequency, dysuria, retention; he does have chronic urgency, which is unchanged. He denies cough, SOB, CP, lightheadedness; is c/o mild dizziness, which is chronic intermittently for him. No other complaints today. He is requesting list of required equipment if he were to go home and is still considering home vs. [facility]. Family History: Unchanged from Admission Social History: Unchanged from Admission Past Medical History: Unchanged from Admission Objective Active Medications: Acetaminophen (Tylenol Tab*) 650 mg PO Q6H PRN PRN Reason: MILD PAIN or TEMP > 100.4 Last Admin: 03/08/19 21:01 Dose: 650 mg Amitriptyline HCl (Elavil Tab*) 50 mg PO BID [facility] Last Admin: 03/09/19 20:25 Dose: 50 mg Carvedilol (Coreg Tab*) 25 mg PO BID [facility] Last Admin: 03/09/19 20:25 Dose: 25 mg Cyclobenzaprine HCl (Flexeril Tab*) 10 mg PO TID PRN PRN Reason: SPASMS Last Admin: 03/09/19 20:25 Dose: 10 mg Erythromycin (Erythromycin Opth Oint*) 1 applic BOTH EYES QID [facility] Stop: 03/15/19 12:59 Last Admin: 03/09/19 20:32 Dose: Not Given Gabapentin (Neurontin Cap(*)) 100 mg PO BID [facility] Last Admin: 03/09/19 20:24 Dose: 100 mg Heparin Sodium (Porcine) (Heparin Flush Picc/Ml/Cvc(*)) 1 ml FLUSH 0600,1800 [facility]; Protocol Last Admin: 03/10/19 05:52 Dose: 1 ml Heparin Sodium (Porcine) (Heparin Vial(*)) 5,000 units SUBCUT Q12H [facility] Last Admin: 03/09/19 20:23 Dose: 5,000 units Magnesium Hydroxide (Milk Of Magnesia Liq*) 30 ml PO BID PRN PRN Reason: CONSTIPATION Last Admin: 03/08/19 09:20 Dose: 30 ml Ondansetron HCl (Zofran Inj*) 4 mg IV Q6H PRN PRN Reason: NAUSEA Oxycodone HCl (Roxycodone Tab*) 5 mg PO Q4H PRN PRN Reason: PAIN - MODERATE Oxycodone HCl (Roxycodone Tab*) 10 mg PO Q4H PRN PRN Reason: PAIN - SEVERE Last Admin: 03/09/19 20:25 Dose: 10 mg Pharmacy Profile Note (Vancomycin Trough Check) 1 note FOLLOW UP 1130 ONE Stop: 03/10/19 11:31 Polyethylene Glycol/Electrolytes (Miralax*) 17 gm PO DAILY PRN PRN Reason: CONSTIPATION Riluzole (Riluzole (Nf)) 50 mg PO BID [facility] Last Admin: 03/09/19 20:23 Dose: 50 mg Senna (Senokot 8.6 Mg Tab*) 1 tab PO BEDTIME PRN PRN Reason: CONSTIPATION Last Admin: 03/03/19 20:26 Dose: 1 tab Vital Signs: Temp Pulse Resp BP Pulse Ox 97.9 F 90 16 122/77 96 03/10/19 04:06 03/10/19 04:06 03/10/19 04:06 03/10/19 04:06 03/10/19 04:06 Oxygen Devices in Use Now: None Appearance: Mr. Guerrero is an average-weight 69yom who is sitting up in bed with HOB elevated. He appears depressed; in no acute distress. Eyes: No Scleral Icterus, PERRLA Ears/Nose/Mouth/Throat: NL Teeth, Lips, Gums, Clear Oropharnyx, Mucous Membranes Moist Neck: NL Appearance and Movements; NL JVP, Trachea Midline Respiratory: Symmetrical Chest Expansion and Respiratory Effort, Clear to Auscultation Cardiovascular: NL Sounds; No Murmurs; No JVD, RRR, No Edema Abdominal: NL Sounds; No Tenderness; No Distention, No Hepatosplenomegaly Extremities: No Edema, No Clubbing, Cyanosis, - - R ankle with CDI dressing in place; unable to move distal digits (baseline); sensation diminished b/l, but equal; cap refill < 2 sec Neurological: Alert and Oriented x 3, - - CN II-XII grossly intact Result Diagrams: 03/09/19 05:43 03/09/19 05:43 Microbiology and Other Data: Microbiology 03/07/19 00:40 Aerobic Blood Culture - Preliminary Blood Venous Staphylococcus Capitis Anaerobic Blood Culture - Preliminary Blood MRSA/MSSA (PCR) - Final Mrsa Negative S.aureus Negative 03/07/19 00:32 Aerobic Blood Culture - Preliminary Blood Venous No Growth Day 1 Anaerobic Blood Culture - Preliminary No Growth Day 1 Assess/Plan/Problems-Billing Assessment: Patient is a 68yo male with a PMH for ALS, HTN, HLD, here for ankle fracture and baseline weakness, post op R ORIF tibia Monday 03/05. - Patient Problems (1) Fracture of right tibia and fibula Comment: -appreciate orthopedic input -s/p ORIF 03/05 -NWB RLE -unable to function at home with fracture and ALS -PT/OT reordered -[facility] denied acceptance -pt considering [facility] vs home with medical equipment; highly recommending [facility] at this time based on lack of mobility and progress with PT -continue pain control (2) Bacteremia Comment: -staph capitis in 2/4 bottles; has had 8 BC bottles drawn in a 22-hour timeframe on 03/07 with 2/8 bottles positive, and no antibiotics given during this time -BC drawn due to fever overnight; suspect that this was related to IVIG or post- operative reaction -ID recommends -suspect that this is a contaminant; d/c vanco (3) Frequency of urination Comment: -resolved -pt reports increased frequency without dysuria, retention, change in urgency -UA negative (4) Hyponatremia Comment: -improving -asymptomatic -likely related to IVIG -continue to monitor for symptoms (5) Bacterial conjunctivitis of both eyes Comment: -b/l scleral injection with thick, yellow, crusty drainage to lids, L>R -improving -continue erythromycin ointment b/l for a total of 7 days (6) ALS (amyotrophic lateral sclerosis) Comment: -continue chronic treatments -Edaravone 60 BID x10d with 14d drug free period; last dose 03/08/2019 at 0900 -IVIG 2d q3wks; last doses 03/05, 03/06 -follow up outpatient neurologist (7) HTN (hypertension) Comment: -SBP 120-130's -continue BB (8) DVT prophylaxis Comment: -HSQ (9) DNR (do not resuscitate) Status and Disposition: May then need senior care placement vs [facility] vs [facility].
[2019-03-10] MEDS: Heparin VIAL(*) 5000 UNITS/ML VIAL (FIVE THOUSAND) SUBCUT SCH ×2 (09:06→22:00)
[2019-03-10] MEDS: Erythromycin OPTH OINT* APPLIC OINT BOTH EYES SCH ×4 (09:07→22:02)
[2019-03-10] MEDS: Carvedilol TAB* 25 MG PO SCH ×2 (09:07→21:58)
[2019-03-10] MEDS: Amitriptyline TAB* 50 MG PO SCH ×2 (09:07→21:58)
[2019-03-10] MEDS: Gabapentin CAP(*) 100 MG PO SCH ×2 (09:07→21:58)
[2019-03-10] MEDS: RILUZOLE 50 MG PO SCH ×2 (09:07→21:59)
[2019-03-10] MEDS ORDERED: Vancomycin Trough Check NOTE FOLLOW UP ONE (11:30)
[2019-03-10] MEDS: Magnesium Hydroxide LIQ* 30 ML UDC PO PRN (12:15)
[2019-03-10] MEDS: Cyclobenzaprine TAB* 10 MG PO PRN (12:17)
--- NOTE | 2019-03-10 12:34 | PN ---
Progress Note - Progress Note Date of Service: 03/10/19 SOAP: Subjective: Pt is doing well. Has some muscle spasms in his thigh. Pain controlled. Denies F /C, Cp/SOB or calf pain Objective: PE- 69 y/o WDWN M NAd RLE- splint removed and dressing changed, mild serous drainage on 4x4s, no purulence, no significant erythema surrounding wound, calf soft Nt, able to F/E toes, decreased sensation which is same as stated baseline, +2 Dp pulse, brisk cap refill Vital Signs Temp Pulse Resp BP Pulse Ox 97.2 F 88 18 111/74 98 03/10/19 11:47 03/10/19 11:47 03/10/19 12:17 03/10/19 11:47 03/10/19 11:47 Assessment: []Sp ORIF R Tibia ALS with limited use of RUE and RLE Plan: []NWB RLE Keep splint CDI, daily dressing changes by ortho to evaluate the incision. Heparin for dvt prophy. Okay to transition to lovenox 40 mg sq qd x 30 days post op when medicine team feels this is appropriate Vanco held per ID recommendations
[2019-03-10] MEDS: oxyCODONE TAB* 5 MG TAB PO PRN (14:33)
[2019-03-11 05:55] LABS: ABS Eosinophils 0.1 10^3/ul (0-0.6); ABS Lymphocytes 1.5 10^3/ul (1.0-4.8); Hematocrit 35 % (42-52); Hemoglobin 12.1 g/dL (14.0-18.0); Lymphocyte % 22.4 %; Mean Corpuscular HGB Conc 35 g/dL (31-36); Mean Corpuscular Hemoglobin 31 pg (27-31); Mean Corpuscular Volume 89 fL (80-94); Platelet Count 369 10^3/uL (150-450); Red Blood Count 3.92 10^6 /uL (4.18-5.48); Red Cell Distribution Width 13 % (10-15); White Blood Count 6.6 10^3/uL (3.5-10.8)
[2019-03-11 06:11] LABS: BUN/Creatinine Ratio 26.2 (8-20); Calcium 9.6 mg/dL (8.6-10.3); EGFR African American 159.1 (>60); EGFR Non-African American 131.5 (>60); Potassium 4.3 mmol/L (3.5-5.0)
[2019-03-11] MEDS: Amitriptyline TAB* 50 MG PO SCH ×2 (09:02→20:36)
[2019-03-11] MEDS: Heparin VIAL(*) 5000 UNITS/ML VIAL (FIVE THOUSAND) SUBCUT SCH (09:02)
[2019-03-11] MEDS: Gabapentin CAP(*) 100 MG PO SCH ×2 (09:02→20:35)
[2019-03-11] MEDS: Carvedilol TAB* 25 MG PO SCH ×2 (09:02→20:36)
[2019-03-11] MEDS: RILUZOLE 50 MG PO SCH ×2 (09:02→20:37)
[2019-03-11] MEDS: Erythromycin OPTH OINT* APPLIC OINT BOTH EYES SCH ×3 (09:03→17:07)
--- NOTE | 2019-03-11 09:37 | PN ---
Subjective Date of Service: 03/11/19 Interval History: Mr. Guerrero c/o night sweats, but denies fever, chills, cough, abd pain, nausea, vomiting, diarrhea. He has R ankle discomfort rated at 2-3/10, but denies pain. He c/o "twitching" in the leg overnight. He has no other complaints today. He is leaning towards d/c to [facility]. Family History: Unchanged from Admission Social History: Unchanged from Admission Past Medical History: Unchanged from Admission Objective Active Medications: Acetaminophen (Tylenol Tab*) 650 mg PO Q6H PRN PRN Reason: MILD PAIN or TEMP > 100.4 Last Admin: 03/08/19 21:01 Dose: 650 mg Amitriptyline HCl (Elavil Tab*) 50 mg PO BID [facility] Last Admin: 03/11/19 09:02 Dose: 50 mg Carvedilol (Coreg Tab*) 25 mg PO BID [facility] Last Admin: 03/11/19 09:02 Dose: 25 mg Cyclobenzaprine HCl (Flexeril Tab*) 10 mg PO TID PRN PRN Reason: SPASMS Last Admin: 03/10/19 12:17 Dose: 10 mg Erythromycin (Erythromycin Opth Oint*) 1 applic BOTH EYES QID [facility] Stop: 03/15/19 12:59 Last Admin: 03/11/19 09:03 Dose: 1 applic Gabapentin (Neurontin Cap(*)) 100 mg PO BID [facility] Last Admin: 03/11/19 09:02 Dose: 100 mg Heparin Sodium (Porcine) (Heparin Flush Picc/Ml/Cvc(*)) 1 ml FLUSH 0600,1800 [facility]; Protocol Last Admin: 03/11/19 05:39 Dose: 1 ml Heparin Sodium (Porcine) (Heparin Vial(*)) 5,000 units SUBCUT Q12H [facility] Last Admin: 03/11/19 09:02 Dose: 5,000 units Magnesium Hydroxide (Milk Of Magnesia Liq*) 30 ml PO BID PRN PRN Reason: CONSTIPATION Last Admin: 03/10/19 12:15 Dose: 30 ml Ondansetron HCl (Zofran Inj*) 4 mg IV Q6H PRN PRN Reason: NAUSEA Oxycodone HCl (Roxycodone Tab*) 5 mg PO Q4H PRN PRN Reason: PAIN - MODERATE Last Admin: 03/10/19 14:33 Dose: 5 mg Oxycodone HCl (Roxycodone Tab*) 10 mg PO Q4H PRN PRN Reason: PAIN - SEVERE Last Admin: 03/09/19 20:25 Dose: 10 mg Polyethylene Glycol/Electrolytes (Miralax*) 17 gm PO DAILY PRN PRN Reason: CONSTIPATION Riluzole (Riluzole (Nf)) 50 mg PO BID [facility] Last Admin: 03/11/19 09:02 Dose: 50 mg Senna (Senokot 8.6 Mg Tab*) 1 tab PO BEDTIME PRN PRN Reason: CONSTIPATION Last Admin: 03/03/19 20:26 Dose: 1 tab Vital Signs: Temp Pulse Resp BP Pulse Ox 98.2 F 95 16 133/90 99 03/11/19 08:13 03/11/19 08:13 03/11/19 09:02 03/11/19 08:13 03/11/19 08:13 Oxygen Devices in Use Now: None Appearance: Mr. Guerrero is an older white male who is sitting up in bed in no acute distress. Eyes: No Scleral Icterus, PERRLA Ears/Nose/Mouth/Throat: NL Teeth, Lips, Gums, Clear Oropharnyx, Mucous Membranes Moist Neck: NL Appearance and Movements; NL JVP, Trachea Midline Respiratory: Symmetrical Chest Expansion and Respiratory Effort, Clear to Auscultation Cardiovascular: NL Sounds; No Murmurs; No JVD, RRR, No Edema Abdominal: NL Sounds; No Tenderness; No Distention, No Hepatosplenomegaly Extremities: No Edema, No Clubbing, Cyanosis, - - RLE with splint and overlying SOY; dressing CDI; sensation decreased, but equal; unable to move digits on RLE (baseline) Neurological: Alert and Oriented x 3 Result Diagrams: 03/11/19 05:42 03/11/19 05:42 Microbiology and Other Data: Microbiology 03/07/19 00:40 Aerobic Blood Culture - Preliminary Blood Venous Staphylococcus Capitis Anaerobic Blood Culture - Preliminary Blood MRSA/MSSA (PCR) - Final Mrsa Negative S.aureus Negative 03/07/19 00:32 Aerobic Blood Culture - Preliminary Blood Venous No Growth Day 1 Anaerobic Blood Culture - Preliminary No Growth Day 1 Assess/Plan/Problems-Billing Assessment: Patient is a 68yo male with a PMH for ALS, HTN, HLD, here for ankle fracture and baseline weakness, post op R ORIF tibia Monday 03/05. - Patient Problems (1) Fracture of right tibia and fibula Comment: -appreciate orthopedic input -s/p ORIF 03/05 -NWB RLE -unable to function at home with fracture and ALS -PT/OT reordered -[facility] denied acceptance -pt considering [facility] vs home with medical equipment; highly recommending [facility] at this time based on lack of mobility and progress with PT -continue pain control (2) Bacteremia Comment: -staph capitis in 2/4 bottles; has had 8 BC bottles drawn in a 22-hour timeframe on 03/07 with 2/8 bottles positive, and no antibiotics given during this time -BC drawn due to fever overnight; suspect that this was related to IVIG or post- operative reaction -ID recommends d/c vanco as this is suspected contaminant -has since been afebrile without leukocytosis (3) Hyponatremia Comment: -improving -asymptomatic -likely related to IVIG -continue to monitor for symptoms (4) Bacterial conjunctivitis of both eyes Comment: -b/l scleral injection with thick, yellow, crusty drainage to lids, L>R -improving -continue erythromycin ointment b/l for a total of 7 days (5) ALS (amyotrophic lateral sclerosis) Comment: -continue chronic treatments -Edaravone 60 BID x10d with 14d drug free period; last dose 03/08/2019 at 0900 -IVIG 2d q3wks; last doses 03/05, 03/06 -follow up outpatient neurologist (6) HTN (hypertension) Comment: -SBP 120-130's -continue BB (7) DVT prophylaxis Comment: -HSQ (8) DNR (do not resuscitate) Status and Disposition: May then need terminal gauger placement vs [facility] vs [facility].
--- NOTE | 2019-03-11 12:09 | PN ---
Progress Note - Progress Note Date of Service: 03/11/19 SOAP: Subjective: Pt is doing well. He feels tired and weak. Pain controlled. Denies Cp/SOB, F/C or calf pain Objective: PE- 69 y/o WDWN M NAd RLE- splint removed and dressing changed, mild serous drainage on 4x4s, no purulence, no significant erythema surrounding wound, calf soft Nt, able to F/E toes, decreased sensation which is same as stated baseline, +2 Dp pulse, brisk cap refill Vital Signs Temp Pulse Resp BP Pulse Ox 98 F 97 16 121/76 95 03/11/19 11:27 03/11/19 11:27 03/11/19 11:27 03/11/19 11:27 03/11/19 11:27 Laboratory Results - last 24 hr 03/10/19 03/11/19 03/11/19 12:50 05:42 05:42 WBC 6.6 RBC 3.92 L Hgb 12.1 L Hct 35 L MCV 89 MCH 31 MCHC 35 RDW 13 Plt Count 369 MPV 7.0 L Neut % (Auto) 60.4 Lymph % (Auto) 22.4 [place] % (Auto) 15.7 Eos % (Auto) 1.0 Baso % (Auto) 0.5 Absolute Neuts (auto) 4.0 Absolute Lymphs (auto) 1.5 Absolute Monos (auto) 1.0 H Absolute Eos (auto) 0.1 Absolute Basos (auto) 0.0 Absolute Nucleated RBC 0.0 Nucleated RBC % 0.0 Sodium 131 L Potassium 4.3 Chloride 98 L Carbon Dioxide 28 Anion Gap 5 BUN 16 Creatinine 0.61 L Est GFR ( Amer) 159.1 Est GFR (Non-Af Amer) 131.5 BUN/Creatinine Ratio 26.2 H Glucose 111 H Calcium 9.6 Vancomycin Trough 11.4 Assessment: []Sp ORIF R Tibia ALS with limited use of RUE and RLE Plan: []NWB RLE Keep splint CDI, daily dressing changes by ortho to evaluate the incision. Heparin for dvt prophy. Okay to transition to lovenox 40 mg sq qd x 30 days post op when medicine team feels this is appropriate Vanco held per ID recommendations Will likely need [facility] F/U with Dr. Hernandez 14 days post op for suture removal
[2019-03-11] MEDS: Enoxaparin(*) 40 MG/0.4 ML SYR SUBCUT SCH (14:05)
[2019-03-11] MEDS: Cyclobenzaprine TAB* 10 MG PO PRN (20:36)
[2019-03-12] MEDS: oxyCODONE TAB* 5 MG TAB PO PRN ×4 (00:45→23:06)
[2019-03-12] MEDS: Carvedilol TAB* 25 MG PO SCH ×2 (08:18→21:32)
[2019-03-12] MEDS: Gabapentin CAP(*) 100 MG PO SCH ×2 (08:18→21:31)
[2019-03-12] MEDS: RILUZOLE 50 MG PO SCH ×2 (08:18→21:32)
[2019-03-12] MEDS: Amitriptyline TAB* 50 MG PO SCH ×2 (08:18→21:32)
--- NOTE | 2019-03-12 09:44 | PN ---
Progress Note - Progress Note Date of Service: 03/12/19 SOAP: Subjective: CC: Postop fevers HPI: Mr. 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 Now S/P ORIF. Denies fever, chills, nausea, vomiting, or diarrhea. He reports numbness in the right LE and is unable to move toes. Objective: Vital Signs - 8 hr 03/12/19 03/12/19 03/12/19 02:45 07:23 08:00 Temperature 98.7 F Pulse Rate 94 Respiratory 16 12 16 Rate Blood Pressure 151/95 (mmHg) O2 Sat by Pulse 99 Oximetry Physical Exam: General: NAD, sitting up in bed Neurological: Alert and Oriented x4 HEENT: Moist MM, no thrush Cardiovascular: Heart rate regular, no murmur Respiratory: Lung sounds clear Abdominal: Bowel sounds present; ABD soft, non tender and non distended Skin: No rash. Surgical splint to right LE CDI Laboratory Last Values WBC 6.6 10^3/uL (3.5-10.8) 03/11/19 05:42 RBC 3.92 10^6 /uL (4.18-5.48) L 03/11/19 05:42 Hgb 12.1 g/dL (14.0-18.0) L 03/11/19 05:42 Hct 35 % (42-52) L 03/11/19 05:42 MCV 89 fL (80-94) 03/11/19 05:42 MCH 31 pg (27-31) 03/11/19 05:42 MCHC 35 g/dL (31-36) 03/11/19 05:42 RDW 13 % (10-15) 03/11/19 05:42 Plt Count 369 10^3/uL (150-450) 03/11/19 05:42 MPV 7.0 fL (7.4-10.4) L 03/11/19 05:42 Neut % (Auto) 60.4 % 03/11/19 05:42 Lymph % (Auto) 22.4 % 03/11/19 05:42 [place] % (Auto) 15.7 % 03/11/19 05:42 Eos % (Auto) 1.0 % 03/11/19 05:42 Baso % (Auto) 0.5 % 03/11/19 05:42 Absolute Neuts (auto) 4.0 10^3/ul (1.5-7.7) 03/11/19 05:42 Absolute Lymphs (auto) 1.5 10^3/ul (1.0-4.8) 03/11/19 05:42 Absolute Monos (auto) 1.0 10^3/ul (0-0.8) H 03/11/19 05:42 Absolute Eos (auto) 0.1 10^3/ul (0-0.6) 03/11/19 05:42 Absolute Basos (auto) 0.0 10^3/ul (0-0.2) 03/11/19 05:42 Absolute Nucleated RBC 0.0 10^3/ul 03/11/19 05:42 Nucleated RBC % 0.0 03/11/19 05:42 Sodium 131 mmol/L (135-145) L 03/11/19 05:42 Potassium 4.3 mmol/L (3.5-5.0) 03/11/19 05:42 Chloride 98 mmol/L (101-111) L 03/11/19 05:42 Carbon Dioxide 28 mmol/L (22-32) 03/11/19 05:42 Anion Gap 5 mmol/L (2-11) 03/11/19 05:42 BUN 16 mg/dL (6-24) 03/11/19 05:42 Creatinine 0.61 mg/dL (0.67-1.17) L 03/11/19 05:42 Est GFR ( Amer) 159.1 (>60) 03/11/19 05:42 Est GFR (Non-Af Amer) 131.5 (>60) 03/11/19 05:42 BUN/Creatinine Ratio 26.2 (8-20) H 03/11/19 05:42 Glucose 111 mg/dL (70-100) H 03/11/19 05:42 Serum Osmolality 285 mOsm/kg (275-295) 03/08/19 09:10 Calcium 9.6 mg/dL (8.6-10.3) 03/11/19 05:42 Total Bilirubin 0.40 mg/dL (0.2-1.0) 03/06/19 07:41 AST 22 U/L (13-39) 03/06/19 07:41 ALT 19 U/L (7-52) 03/06/19 07:41 Alkaline Phosphatase 70 U/L (34-104) 03/06/19 07:41 Total Protein 5.9 g/dL (6.4-8.9) L 03/06/19 07:41 Albumin 3.0 g/dL (3.2-5.2) L 03/06/19 07:41 Globulin 2.9 g/dL (2-4) 03/06/19 07:41 Albumin/Globulin Ratio 1.0 (1-3) 03/06/19 07:41 Urine Color Yellow 03/08/19 14:18 Urine Appearance Clear 03/08/19 14:18 Urine pH 7.0 (5-9) 03/08/19 14:18 Ur Specific [place] 1.010 (1.010-1.030) 03/08/19 14:18 Urine Protein Negative (Negative) 03/08/19 14:18 Urine Ketones Negative (Negative) 03/08/19 14:18 Urine Blood Negative (Negative) 03/08/19 14:18 Urine Nitrate Negative (Negative) 03/08/19 14:18 Urine Bilirubin Negative (Negative) 03/08/19 14:18 Urine Urobilinogen Negative (Negative) 03/08/19 14:18 Ur Leukocyte Esterase Negative (Negative) 03/08/19 14:18 Urine Glucose Negative (Negative) 03/08/19 14:18 Vancomycin Trough 11.4 mcg/mL 03/10/19 12:50 Hepatitis C Antibody Negative (Negative) 03/01/19 17:50 Hepatitis C Ab Index 0.04 s/c 03/01/19 17:50 Microbiology 03/09/19 06:37 Aerobic Blood Culture - Preliminary No Source Provided No Growth Day 3 Anaerobic Blood Culture - Preliminary No Growth Day 3 03/09/19 05:43 Aerobic Blood Culture - Preliminary No Source Provided No Growth Day 3 Anaerobic Blood Culture - Preliminary No Growth Day 3 03/07/19 00:32 Aerobic Blood Culture - Final Blood Venous No Growth Day 5 Anaerobic Blood Culture - Final No Growth Day 5 03/07/19 22:30 Aerobic Blood Culture - Preliminary Blood Venous No Growth Day 4 Anaerobic Blood Culture - Preliminary No Growth Day 4 03/07/19 21:29 Aerobic Blood Culture - Preliminary Blood Venous No Growth Day 4 Anaerobic Blood Culture - Preliminary No Growth Day 4 03/07/19 00:40 Aerobic Blood Culture - Final Blood Venous Staphylococcus Capitis Anaerobic Blood Culture - Final Staphylococcus Capitis Blood MRSA/MSSA (PCR) - Final Mrsa Negative S.aureus Negative Assessment: 1. Postoperative fever. Resolved. Initial blood cultures with staph capitis, repeat blood cultures with no growth to date. Urine culture with no growth. Chest xray without acute findings. No respiratory symptoms. Incision site benign. Has been off ABX since the weekend. Suspect reactive from surgery. 2. Staph capitis bacteremia. 2/4 bottles positive on 03/07. Suspect this represents a contaminate and not a pathogen. Afebrile, no leukocytosis. Denies back pain, no artifical material present. 3. Right Tib/fib fracture. S/P ORIF, POD #7. 4. ALS. Plan: No further ABX needed.
--- NOTE | 2019-03-12 11:22 | PN ---
Progress Note - Progress Note Date of Service: 03/12/19 SOAP: Subjective: Pt is doing well. He feels tired and weak. Pain controlled. Denies Cp/SOB, F/C or calf pain Objective: PE- 69 y/o WDWN M NAd RLE- splint removed and dressing changed, no drainage on 4x4s, no purulence, no significant erythema surrounding wound, calf soft Nt, able to F/E toes, decreased sensation which is same as stated baseline, +2 Dp pulse, brisk cap refill Vital Signs Temp 98.4 F 03/12/19 11:15 Pulse 89 03/12/19 11:15 Resp 14 03/12/19 11:15 BP 120/81 03/12/19 11:15 Pulse Ox 97 03/12/19 11:15 Intake & Output 03/11/19 03/12/19 03/12/19 18:59 06:59 18:59 Intake Total 1190 500 200 Output Total 1880 410 Balance -690 90 200 Intake: Oral 1190 500 200 Output: Urine 1880 410 Assessment: []Sp ORIF R Tibia ALS with limited use of RUE and RLE Plan: []NWB RLE Keep splint CDI, daily dressing changes by ortho to evaluate the incision. Heparin for dvt prophy. Okay to transition to lovenox 40 mg sq qd x 30 days post op when medicine team feels this is appropriate Vanco held per ID recommendations Will likely need [facility] F/U with Dr. Hernandez 14 days post op for suture removal
[2019-03-12] MEDS: Acetaminophen TAB* 325 MG PO PRN (15:19)
[2019-03-12] MEDS: Cyclobenzaprine TAB* 10 MG PO PRN ×2 (15:19→21:32)
[2019-03-12] MEDS: Enoxaparin(*) 40 MG/0.4 ML SYR SUBCUT SCH (15:20)
--- NOTE | 2019-03-12 17:29 | PN ---
Subjective Date of Service: 03/12/19 Interval History: Pt is generally feeling ok. He continues to have intermittent spasms in the R LE. He has a discomfort in the R LE but denies severe pain. No SOB. No CP. He has not had a BM since Tuesday. Family History: Unchanged from Admission Social History: Unchanged from Admission Past Medical History: Unchanged from Admission Objective Active Medications: Acetaminophen (Tylenol Tab*) 650 mg PO Q6H PRN PRN Reason: MILD PAIN or TEMP > 100.4 Last Admin: 03/12/19 15:19 Dose: 650 mg Amitriptyline HCl (Elavil Tab*) 50 mg PO BID [facility] Last Admin: 03/12/19 08:18 Dose: 50 mg Carvedilol (Coreg Tab*) 25 mg PO BID [facility] Last Admin: 03/12/19 08:18 Dose: 25 mg Cyclobenzaprine HCl (Flexeril Tab*) 10 mg PO TID PRN PRN Reason: SPASMS Last Admin: 03/12/19 15:19 Dose: 10 mg Enoxaparin Sodium (Lovenox(*)) 40 mg SUBCUT Q24H [facility] Last Admin: 03/12/19 15:20 Dose: 40 mg Gabapentin (Neurontin Cap(*)) 100 mg PO BID [facility] Last Admin: 03/12/19 08:18 Dose: 100 mg Heparin Sodium (Porcine) (Heparin Flush Picc/Ml/Cvc(*)) 1 ml FLUSH 0600,1800 [facility]; Protocol Last Admin: 03/12/19 05:48 Dose: 1 ml Magnesium Hydroxide (Milk Of Magnesia Liq*) 30 ml PO BID PRN PRN Reason: CONSTIPATION Last Admin: 03/10/19 12:15 Dose: 30 ml Ondansetron HCl (Zofran Inj*) 4 mg IV Q6H PRN PRN Reason: NAUSEA Oxycodone HCl (Roxycodone Tab*) 5 mg PO Q4H PRN PRN Reason: PAIN - MODERATE Last Admin: 03/12/19 13:32 Dose: 5 mg Oxycodone HCl (Roxycodone Tab*) 10 mg PO Q4H PRN PRN Reason: PAIN - SEVERE Last Admin: 03/09/19 20:25 Dose: 10 mg Polyethylene Glycol/Electrolytes (Miralax*) 17 gm PO DAILY PRN PRN Reason: CONSTIPATION Riluzole (Riluzole (Nf)) 50 mg PO BID [facility] Last Admin: 03/12/19 08:18 Dose: 50 mg Senna (Senokot 8.6 Mg Tab*) 1 tab PO BEDTIME PRN PRN Reason: CONSTIPATION Last Admin: 03/03/19 20:26 Dose: 1 tab Vital Signs - 8 hr 03/12/19 03/12/19 03/12/19 09:55 11:15 13:32 Temperature 98.4 F Pulse Rate 89 Respiratory 18 14 18 Rate Blood Pressure 120/81 (mmHg) O2 Sat by Pulse 97 Oximetry 03/12/19 03/12/19 03/12/19 15:15 15:19 15:22 Temperature 97.6 F Pulse Rate 96 Respiratory 18 18 18 Rate Blood Pressure 126/81 (mmHg) O2 Sat by Pulse 97 Oximetry Oxygen Devices in Use Now: None Appearance: Middle aged thin male sitting up in bed, NAD Eyes: No Scleral Icterus Ears/Nose/Mouth/Throat: Mucous Membranes Moist Respiratory: Symmetrical Chest Expansion and Respiratory Effort, Clear to Auscultation Cardiovascular: NL Sounds; No Murmurs; No JVD, RRR, No Edema Abdominal: NL Sounds; No Tenderness; No Distention Extremities: No Clubbing, Cyanosis, - - R LE in splint Skin: No Nodules or Sclerosis, - - Slight erythematous rash on back- pt states it is secondary to a medication for his ALS Neurological: Alert and Oriented x 3 Result Diagrams: 03/11/19 05:42 03/11/19 05:42 Microbiology and Other Data: Microbiology 03/07/19 00:40 Aerobic Blood Culture - Preliminary Blood Venous Staphylococcus Capitis Anaerobic Blood Culture - Preliminary Blood MRSA/MSSA (PCR) - Final Mrsa Negative S.aureus Negative 03/07/19 00:32 Aerobic Blood Culture - Preliminary Blood Venous No Growth Day 1 Anaerobic Blood Culture - Preliminary No Growth Day 1 Assess/Plan/Problems-Billing Mr Guerrero is a 68yo male with a PMH for ALS, HTN, HLD, here for ankle fracture and baseline weakness, post op R ORIF tibia Monday 03/05. - Patient Problems (1) Fracture of right tibia and fibula Current Visit: Yes Status: Acute Code(s): S82.201A - UNSP FRACTURE OF SHAFT OF RIGHT TIBIA, INIT FOR CLOS FX; S82.401A - UNSP FRACTURE OF SHAFT OF RIGHT FIBULA, INIT FOR CLOS FX SNOMED Code(s): 60995334 Comment: s/p ORIF 03/05. Continue NWB RLE. Pt is unable to function at home with fracture and ALS. Plan for d/c to [facility] when insurance approval comes through. Continue pain control. (2) Bacteremia Current Visit: Yes Status: Acute Code(s): R78.81 - BACTEREMIA SNOMED Code( s): 6124293 Comment: Pt with probable contaminant in his blood cultures. Was on vanco but this is now stopped. Monitor temp. (3) Hyponatremia Current Visit: Yes Status: Acute Code(s): E87.1 - HYPO-OSMOLALITY AND HYPONATREMIA SNOMED Code(s): 79320095 Comment: Stable. Follow BMP intermittently. (4) Bacterial conjunctivitis of both eyes Current Visit: Yes Status: Acute Code(s): H10.9 - UNSPECIFIED CONJUNCTIVITIS SNOMED Code(s): 377688018 Comment: Improved. He is no longer on erythromycin ointment. (5) ALS (amyotrophic lateral sclerosis) Current Visit: Yes Status: Acute Code(s): G12.21 - AMYOTROPHIC LATERAL SCLEROSIS SNOMED Code(s): 56025141 Comment: Continue chronic treatments with Edaravone 60 BID x10d with 14d drug free period; last dose 03/08/2019 at 0900 and IVIG x2d q3wks; last doses , 03/06. Follow up outpatient neurologist. (6) HTN (hypertension) Current Visit: Yes Status: Acute Code(s): I10 - ESSENTIAL (PRIMARY) HYPERTENSION SNOMED Code(s): 32291320 Comment: BP is under good control. Continue coreg 25mg BID. (7) DVT prophylaxis Current Visit: Yes Status: Acute Code(s): Z29.9 - ENCOUNTER FOR PROPHYLACTIC MEASURES, UNSPECIFIED SNOMED Code(s): 426564958 Comment: SQ heparin (8) DNR (do not resuscitate) Current Visit: Yes Status: Acute Status and Disposition: .
[2019-03-12] MEDS: Magnesium Hydroxide LIQ* 30 ML UDC PO PRN (21:31)
[2019-03-13] MEDS: Gabapentin CAP(*) 100 MG PO SCH ×2 (08:15→20:21)
[2019-03-13] MEDS: Magnesium Hydroxide LIQ* 30 ML UDC PO PRN (08:15)
[2019-03-13] MEDS: Amitriptyline TAB* 50 MG PO SCH ×2 (08:15→20:21)
[2019-03-13] MEDS: RILUZOLE 50 MG PO SCH ×2 (08:16→20:22)
[2019-03-13] MEDS: Carvedilol TAB* 25 MG PO SCH ×2 (08:16→20:19)
--- NOTE | 2019-03-13 09:25 | PN ---
Progress Note - Progress Note Date of Service: 03/13/19 SOAP: Subjective: []Pt seen and examined at bedside. He reports anxiety but otherwise feels well. Denies CP, SOB, dizziness, nausea, fever or chills. Denies RLE pain. Objective: []Gen: NAD, appears well RLE: Incision CDI without erythema or discharge. Well padded Splint replaced. Pins and needles sensation only distally which is baseline, unable to f/e toes which is also baseline. Calves supple and nontender Assessment: []Sp ORIF R Tibia ALS with limited use of RUE and RLE Plan: []NWB RLE Keep splint CDI, incision is healing well without sign of infection. Discussed with ID staph capitus likely contaminant. No need for continued daily dressing changes. Heparin for dvt prophy. Okay to transition to lovenox 40 mg sq qd x 30 days post op when medicine team feels this is appropriate [place] likely today ID to see for lyme eval to r/o overlap with ALS - okay as outpt if transferred prior to workup F/U with Dr. Hernandez 14 days post op for suture removal Vital Signs Temp 98.5 F 03/13/19 07:21 Pulse 89 03/13/19 07:21 Resp 18 03/13/19 08:15 BP 131/77 03/13/19 07:21 Pulse Ox 98 03/13/19 07:21 Intake & Output 03/12/19 03/13/19 03/13/19 18:59 06:59 18:59 Intake Total 440 300 Output Total 1100 850 Balance -660 -550 Intake: Oral 440 300 Output: Urine 1100 850 Other: # Bowel Movements 0 Laboratory Last Values WBC 6.6 10^3/uL (3.5-10.8) 03/11/19 05:42 RBC 3.92 10^6 /uL (4.18-5.48) L 03/11/19 05:42 Hgb 12.1 g/dL (14.0-18.0) L 03/11/19 05:42 Hct 35 % (42-52) L 03/11/19 05:42 MCV 89 fL (80-94) 03/11/19 05:42 MCH 31 pg (27-31) 03/11/19 05:42 MCHC 35 g/dL (31-36) 03/11/19 05:42 RDW 13 % (10-15) 03/11/19 05:42 Plt Count 369 10^3/uL (150-450) 03/11/19 05:42 MPV 7.0 fL (7.4-10.4) L 03/11/19 05:42 Neut % (Auto) 60.4 % 03/11/19 05:42 Lymph % (Auto) 22.4 % 03/11/19 05:42 [place] % (Auto) 15.7 % 03/11/19 05:42 Eos % (Auto) 1.0 % 03/11/19 05:42 Baso % (Auto) 0.5 % 03/11/19 05:42 Absolute Neuts (auto) 4.0 10^3/ul (1.5-7.7) 03/11/19 05:42 Absolute Lymphs (auto) 1.5 10^3/ul (1.0-4.8) 03/11/19 05:42 Absolute Monos (auto) 1.0 10^3/ul (0-0.8) H 03/11/19 05:42 Absolute Eos (auto) 0.1 10^3/ul (0-0.6) 03/11/19 05:42 Absolute Basos (auto) 0.0 10^3/ul (0-0.2) 03/11/19 05:42 Absolute Nucleated RBC 0.0 10^3/ul 03/11/19 05:42 Nucleated RBC % 0.0 03/11/19 05:42 Sodium 131 mmol/L (135-145) L 03/11/19 05:42 Potassium 4.3 mmol/L (3.5-5.0) 03/11/19 05:42 Chloride 98 mmol/L (101-111) L 03/11/19 05:42 Carbon Dioxide 28 mmol/L (22-32) 03/11/19 05:42 Anion Gap 5 mmol/L (2-11) 03/11/19 05:42 BUN 16 mg/dL (6-24) 03/11/19 05:42 Creatinine 0.61 mg/dL (0.67-1.17) L 03/11/19 05:42 Est GFR ( Amer) 159.1 (>60) 03/11/19 05:42 Est GFR (Non-Af Amer) 131.5 (>60) 03/11/19 05:42 BUN/Creatinine Ratio 26.2 (8-20) H 03/11/19 05:42 Glucose 111 mg/dL (70-100) H 03/11/19 05:42 Serum Osmolality 285 mOsm/kg (275-295) 03/08/19 09:10 Calcium 9.6 mg/dL (8.6-10.3) 03/11/19 05:42 Total Bilirubin 0.40 mg/dL (0.2-1.0) 03/06/19 07:41 AST 22 U/L (13-39) 03/06/19 07:41 ALT 19 U/L (7-52) 03/06/19 07:41 Alkaline Phosphatase 70 U/L (34-104) 03/06/19 07:41 Total Protein 5.9 g/dL (6.4-8.9) L 03/06/19 07:41 Albumin 3.0 g/dL (3.2-5.2) L 03/06/19 07:41 Globulin 2.9 g/dL (2-4) 03/06/19 07:41 Albumin/Globulin Ratio 1.0 (1-3) 03/06/19 07:41 Urine Color Yellow 03/08/19 14:18 Urine Appearance Clear 03/08/19 14:18 Urine pH 7.0 (5-9) 03/08/19 14:18 Ur Specific [place] 1.010 (1.010-1.030) 03/08/19 14:18 Urine Protein Negative (Negative) 03/08/19 14:18 Urine Ketones Negative (Negative) 03/08/19 14:18 Urine Blood Negative (Negative) 03/08/19 14:18 Urine Nitrate Negative (Negative) 03/08/19 14:18 Urine Bilirubin Negative (Negative) 03/08/19 14:18 Urine Urobilinogen Negative (Negative) 03/08/19 14:18 Ur Leukocyte Esterase Negative (Negative) 03/08/19 14:18 Urine Glucose Negative (Negative) 03/08/19 14:18 Vancomycin Trough 11.4 mcg/mL 03/10/19 12:50 Hepatitis C Antibody Negative (Negative) 03/01/19 17:50 Hepatitis C Ab Index 0.04 s/c 03/01/19 17:50
[2019-03-13] MEDS: Acetaminophen TAB* 325 MG PO PRN ×2 (12:02→20:05)
[2019-03-13] MEDS: Enoxaparin(*) 40 MG/0.4 ML SYR SUBCUT SCH (13:22)
[2019-03-13] MEDS ORDERED: Polymyx/Trimethoprim OPTH* 10 ML BTL BOTH EYES SCH (15:00)
--- NOTE | 2019-03-13 16:11 | PN ---
Progress Note - Progress Note Date of Service: 03/13/19 SOAP: Subjective: cc: question of Lyme HPI: 69 year old man dx with ALS and admitted with right ankle fracture s/p ORIF. He is going to SNF tomorrow. [place] 6 weeks of ceftriaxone and an oral antibiotic. He feels his neurologic function declined less rapidly while he was on antibiotics. I reviewed his records from October 2018 that include a negative serum Lyme Ab. Objective: Vital Signs Temp 36.7 C 03/13/19 15:47 Pulse 87 03/13/19 15:47 Resp 16 03/13/19 15:47 BP 117/70 03/13/19 15:47 Pulse Ox 97 03/13/19 15:47 Intake & Output 03/12/19 03/13/19 03/13/19 18:59 06:59 18:59 Intake Total 440 300 Output Total 1100 850 950 Balance -660 -550 -950 Intake: Oral 440 300 Output: Urine 1100 850 950 Other: # Bowel Movements 0 Gen:awake, no distress HEENT: no thrush Heart: Regular no murmur Lungs:CTA BL Abd:+BS NTND soft Skin: no rash Laboratory Tests 03/01/19 03/01/19 03/01/19 17:50 17:50 17:50 WBC 9.8 RBC 4.38 Hgb 13.3 L Hct 39 L MCV 89 MCH 30 MCHC 34 RDW 14 Plt Count 244 MPV 7.1 L Neut % (Auto) 68.2 Lymph % (Auto) 18.8 [place] % (Auto) 11.1 Eos % (Auto) 0.8 Baso % (Auto) 1.1 Absolute Neuts (auto) 6.7 Absolute Lymphs (auto) 1.8 Absolute Monos (auto) 1.1 H Absolute Eos (auto) 0.1 Absolute Basos (auto) 0.1 Absolute Nucleated RBC 0.0 Nucleated RBC % 0.5 Sodium 134 L Potassium 3.9 Chloride 101 Carbon Dioxide 30 Anion Gap 3 BUN 14 Creatinine 0.72 Est GFR ( Amer) 131.8 Est GFR (Non-Af Amer) 108.9 BUN/Creatinine Ratio 19.4 Glucose 119 H Serum Osmolality Calcium 8.8 Total Bilirubin AST ALT Alkaline Phosphatase Total Protein Albumin Globulin Albumin/Globulin Ratio Urine Color Urine Appearance Urine pH Ur Specific Oneco Urine Protein Urine Ketones Urine Blood Urine Nitrate Urine Bilirubin Urine Urobilinogen Ur Leukocyte Esterase Urine Glucose Vancomycin Trough Hepatitis C Antibody Negative Hepatitis C Ab Index 0.04 03/06/19 03/06/19 03/06/19 06:40 06:40 07:41 WBC 13.5 H RBC 3.70 L Hgb 10.7 L Hct 33 L MCV 90 MCH 29 MCHC 32 RDW 14 Plt Count 237 MPV 7.3 L Neut % (Auto) Lymph % (Auto) [place] % (Auto) Eos % (Auto) Baso % (Auto) Absolute Neuts (auto) Absolute Lymphs (auto) Absolute Monos (auto) Absolute Eos (auto) Absolute Basos (auto) Absolute Nucleated RBC Nucleated RBC % Sodium 137 133 L Potassium 3.1 L 4.2 Chloride 112 H 102 Carbon Dioxide 20 L 26 Anion Gap 5 5 BUN 16 19 Creatinine 0.40 L 0.60 L Est GFR ( Amer) 258.8 162.1 Est GFR (Non-Af Amer) 213.9 134.0 BUN/Creatinine Ratio 40.0 H 31.7 H Glucose 87 108 H Serum Osmolality Calcium 6.2 L* 8.4 L Total Bilirubin 0.40 AST 22 ALT 19 Alkaline Phosphatase 70 Total Protein 5.9 L Albumin 3.0 L Globulin 2.9 Albumin/Globulin Ratio 1.0 Urine Color Urine Appearance Urine pH Ur Specific Oneco Urine Protein Urine Ketones Urine Blood Urine Nitrate Urine Bilirubin Urine Urobilinogen Ur Leukocyte Esterase Urine Glucose Vancomycin Trough Hepatitis C Antibody Hepatitis C Ab Index 03/07/19 03/07/19 03/08/19 05:51 05:51 05:40 WBC 11.0 H RBC 3.59 L Hgb 11.1 L Hct 32 L MCV 88 MCH 31 MCHC 35 RDW 14 Plt Count 241 MPV 6.9 L Neut % (Auto) Lymph % (Auto) [place] % (Auto) Eos % (Auto) Baso % (Auto) Absolute Neuts (auto) Absolute Lymphs (auto) Absolute Monos (auto) Absolute Eos (auto) Absolute Basos (auto) Absolute Nucleated RBC Nucleated RBC % Sodium 130 L 128 L Potassium 4.0 4.1 Chloride 98 L 97 L Carbon Dioxide 26 27 Anion Gap 6 4 BUN 17 17 Creatinine 0.61 L 0.55 L Est GFR ( Amer) 159.1 179.2 Est GFR (Non-Af Amer) 131.5 148.1 BUN/Creatinine Ratio 27.9 H 30.9 H Glucose 107 H 99 Serum Osmolality Calcium 8.5 L 8.8 Total Bilirubin AST ALT Alkaline Phosphatase Total Protein Albumin Globulin Albumin/Globulin Ratio Urine Color Urine Appearance Urine pH Ur Specific Oneco Urine Protein Urine Ketones Urine Blood Urine Nitrate Urine Bilirubin Urine Urobilinogen Ur Leukocyte Esterase Urine Glucose Vancomycin Trough Hepatitis C Antibody Hepatitis C Ab Index 03/08/19 03/08/19 03/09/19 09:10 14:18 05:43 WBC RBC Hgb Hct MCV MCH MCHC RDW Plt Count MPV Neut % (Auto) Lymph % (Auto) [place] % (Auto) Eos % (Auto) Baso % (Auto) Absolute Neuts (auto) Absolute Lymphs (auto) Absolute Monos (auto) Absolute Eos (auto) Absolute Basos (auto) Absolute Nucleated RBC Nucleated RBC % Sodium 131 L Potassium 4.3 Chloride 100 L Carbon Dioxide 26 Anion Gap 5 BUN 21 Creatinine 0.60 L Est GFR ( Amer) 162.1 Est GFR (Non-Af Amer) 134.0 BUN/Creatinine Ratio 35.0 H Glucose 96 Serum Osmolality 285 Calcium 9.0 Total Bilirubin AST ALT Alkaline Phosphatase Total Protein Albumin Globulin Albumin/Globulin Ratio Urine Color Yellow Urine Appearance Clear Urine pH 7.0 Ur Specific Oneco 1.010 Urine Protein Negative Urine Ketones Negative Urine Blood Negative Urine Nitrate Negative Urine Bilirubin Negative Urine Urobilinogen Negative Ur Leukocyte Esterase Negative Urine Glucose Negative Vancomycin Trough Hepatitis C Antibody Hepatitis C Ab Index 03/09/19 03/09/19 03/10/19 05:43 11:46 12:50 WBC 6.7 RBC 3.19 L Hgb 10.0 L Hct 29 L MCV 90 MCH 31 MCHC 35 RDW 13 Plt Count 334 MPV 7.0 L Neut % (Auto) 51.7 Lymph % (Auto) 29.6 [place] % (Auto) 15.9 Eos % (Auto) 1.8 Baso % (Auto) 1.0 Absolute Neuts (auto) 3.5 Absolute Lymphs (auto) 2.0 Absolute Monos (auto) 1.1 H Absolute Eos (auto) 0.1 Absolute Basos (auto) 0.1 Absolute Nucleated RBC 0.0 Nucleated RBC % 0.1 Sodium Potassium Chloride Carbon Dioxide Anion Gap BUN Creatinine Est GFR ( Amer) Est GFR (Non-Af Amer) BUN/Creatinine Ratio Glucose Serum Osmolality Calcium Total Bilirubin AST ALT Alkaline Phosphatase Total Protein Albumin Globulin Albumin/Globulin Ratio Urine Color Urine Appearance Urine pH Ur Specific Oneco Urine Protein Urine Ketones Urine Blood Urine Nitrate Urine Bilirubin Urine Urobilinogen Ur Leukocyte Esterase Urine Glucose Vancomycin Trough 10.2 11.4 Hepatitis C Antibody Hepatitis C Ab Index 03/11/19 03/11/19 05:42 05:42 WBC 6.6 RBC 3.92 L Hgb 12.1 L Hct 35 L MCV 89 MCH 31 MCHC 35 RDW 13 Plt Count 369 MPV 7.0 L Neut % (Auto) 60.4 Lymph % (Auto) 22.4 [place] % (Auto) 15.7 Eos % (Auto) 1.0 Baso % (Auto) 0.5 Absolute Neuts (auto) 4.0 Absolute Lymphs (auto) 1.5 Absolute Monos (auto) 1.0 H Absolute Eos (auto) 0.1 Absolute Basos (auto) 0.0 Absolute Nucleated RBC 0.0 Nucleated RBC % 0.0 Sodium 131 L Potassium 4.3 Chloride 98 L Carbon Dioxide 28 Anion Gap 5 BUN 16 Creatinine 0.61 L Est GFR ( Amer) 159.1 Est GFR (Non-Af Amer) 131.5 BUN/Creatinine Ratio 26.2 H Glucose 111 H Serum Osmolality Calcium 9.6 Total Bilirubin AST ALT Alkaline Phosphatase Total Protein Albumin Globulin Albumin/Globulin Ratio Urine Color Urine Appearance Urine pH Ur Specific Oneco Urine Protein Urine Ketones Urine Blood Urine Nitrate Urine Bilirubin Urine Urobilinogen Ur Leukocyte Esterase Urine Glucose Vancomycin Trough Hepatitis C Antibody Hepatitis C Ab Index Assessment: 1. ALS; he does not have serologic evidence of Lyme or symptoms of neuro Lyme. He had antibiotic treatment for sufficient duration to cover Lyme earlier in the fall. He is understandably interested in any treatment that may slow progression of neurologic disease. We discussed a trial of doxycycline by mouth to help satisfy that concern as opposed to his prior plan to restart ceftriaxone as an outpatient. We discussed my thought that he does not have Lyme and he has some risk of side effects form antibiotics including Cdif, allergic reaction; he understands those concerns. 2. Ankle fracture Plan: 1. doxycycline 100 mg by mouth twice daily, he can follow up with me as an outpatient for side effect monitoring and to discuss this further.
--- NOTE | 2019-03-13 16:39 | PN ---
Subjective Date of Service: 03/13/19 Interval History: Mr. Guerrero is feeling fine today. Pain is generally well managed. Little to no pain at rest, but up to 6/10 with movement. Sensation is still decreased in RLE. Denies CP, SOB, N/V. No concerns from nursing. Family History: Unchanged from Admission Social History: Unchanged from Admission Past Medical History: Unchanged from Admission Objective Active Medications: Acetaminophen (Tylenol Tab*) 650 mg PO Q6H PRN MILD PAIN or TEMP > 100.4 Amitriptyline HCl (Elavil Tab*) 50 mg PO BID LEVI Carvedilol (Coreg Tab*) 25 mg PO BID LEVI Cyclobenzaprine HCl (Flexeril Tab*) 10 mg PO TID PRN SPASMS Enoxaparin Sodium (Lovenox(*)) 40 mg SUBCUT Q24H LEVI Gabapentin (Neurontin Cap(*)) 100 mg PO BID LEVI Heparin Sodium (Porcine) (Heparin Flush Picc/Ml/Cvc(*)) 1 ml FLUSH 0600,1800 LEVI; Protocol Magnesium Hydroxide (Milk Of Magnesia Liq*) 30 ml PO BID PRN CONSTIPATION Ondansetron HCl (Zofran Inj*) 4 mg IV Q6H PRN NAUSEA Oxycodone HCl (Roxycodone Tab*) 5 mg PO Q4H PRN PAIN - MODERATE Oxycodone HCl (Roxycodone Tab*) 10 mg PO Q4H PRN PAIN - SEVERE Polyethylene Glycol/Electrolytes (Miralax*) 17 gm PO DAILY PRN CONSTIPATION Riluzole (Riluzole (Nf)) 50 mg PO BID LEVI Senna (Senokot 8.6 Mg Tab*) 1 tab PO BEDTIME PRN CONSTIPATION Vital Signs - 8 hr 03/13/19 03/13/19 03/13/19 10:04 11:09 15:47 Temperature 98.5 F 98.0 F Pulse Rate 83 87 Respiratory 18 16 16 Rate Blood Pressure 131/67 117/70 (mmHg) O2 Sat by Pulse 96 97 Oximetry Oxygen Devices in Use Now: None Appearance: Middle-aged male lying in bed in NAD Ears/Nose/Mouth/Throat: Mucous Membranes Moist Neck: NL Appearance and Movements; NL JVP, Trachea Midline Respiratory: Symmetrical Chest Expansion and Respiratory Effort, Clear to Auscultation Cardiovascular: NL Sounds; No Murmurs; No JVD Abdominal: NL Sounds; No Tenderness; No Distention Neurological: Alert and Oriented x 3 Lines/Tubes/Other Access: Clean, Dry and Intact PICC Line Nutrition: Taking PO's Result Diagrams: 03/11/19 05:42 03/11/19 05:42 Assess/Plan/Problems-Billing Assessment: Mr Guerrero is a 68yo male with a PMH for ALS, HTN, HLD; here for ankle fracture and baseline weakness, post op R ORIF tibia Monday 03/05. - Patient Problems (1) Fracture of right tibia and fibula Code(s): S82.201A - UNSP FRACTURE OF SHAFT OF RIGHT TIBIA, INIT FOR CLOS FX; S82.401A - UNSP FRACTURE OF SHAFT OF RIGHT FIBULA, INIT FOR CLOS FX Comment: - S/p ORIF 03/05 - Management per Ortho - NWB RLE - Continue pain control (2) Hyponatremia Code(s): E87.1 - HYPO-OSMOLALITY AND HYPONATREMIA Comment: - Stable (3) Bacterial conjunctivitis of both eyes Code(s): H10.9 - UNSPECIFIED CONJUNCTIVITIS Comment: - Improved with erythromycin ointment (4) ALS (amyotrophic lateral sclerosis) Code(s): G12.21 - AMYOTROPHIC LATERAL SCLEROSIS Comment: - PICC placed in October, still correctly positioned on CXR 03/09 - Continue chronic treatments with Edaravone 60 BID x10d with 14d drug free period; last dose 1/2 at 0900 and IVIG x2d q3wks; last doses 03/05, 03/06 - Follow up outpatient neurologist (5) DVT prophylaxis Code(s): Z29.9 - ENCOUNTER FOR PROPHYLACTIC MEASURES, UNSPECIFIED Comment: - Lovenox (6) DNR (do not resuscitate) Comment: Status and Disposition: Inpatient. D/c to [facility] pending insurance auth. Attending: Gualberto Souza
[2019-03-13] MEDS: Cyclobenzaprine TAB* 10 MG PO PRN (20:03)
[2019-03-13] MEDS: oxyCODONE TAB* 5 MG TAB PO PRN (20:26)
[2019-03-14] MEDS: Carvedilol TAB* 25 MG PO SCH ×2 (09:09→22:34)
[2019-03-14] MEDS: Gabapentin CAP(*) 100 MG PO SCH ×2 (09:09→22:34)
[2019-03-14] MEDS: Amitriptyline TAB* 50 MG PO SCH ×2 (09:09→22:33)
[2019-03-14] MEDS: RILUZOLE 50 MG PO SCH ×2 (09:10→22:35)
[2019-03-14] MEDS: DOXYcycline CAP(*) 100 MG PO SCH ×2 (09:54→22:35)
--- NOTE | 2019-03-14 11:55 | DS ---
CC: Dr. David Cm; Dr. Joel Hernandez; Dr. Be Blood * DISCHARGE SUMMARY: DATE OF ADMISSION: 03/01/19 DATE OF ANTICIPATED DISCHARGE: 03/15/19 PRIMARY CARE PROVIDER: Dr. David Cm. ORTHOPEDIC SURGEON: Dr. Joel Hernandez. ATTENDING PHYSICIAN: Dr. Nichol Anderson.* (DICTATED BY LEEANNE ARANGO NP) PRIMARY DIAGNOSES: 1. Displaced right distal tibia-fibula fracture, status post ORIF. 2. Bilateral bacterial conjunctivitis. 3. Systemic inflammatory response syndrome secondary to postoperative state. SECONDARY DIAGNOSES: 1. Amyotrophic lateral sclerosis. 2. Hypertension. 3. Hyperlipidemia. 4. Idiopathic cardiomyopathy. 5. Polyneuropathy. STUDIES WHILE IN THE HOSPITAL: 1. Right ankle x-ray on 03/01/19 reads as comminuted displaced angulated fractures of the distal tibia and fibula at the junction of the distal diaphysis and metaphysis. 2. Right tib-fib x-ray on 03/01/19 reads as comminuted displaced angulated fractures of the distal tibia and fibula. 3. Transthoracic echocardiogram on 03/01/19 reads as the left ventricular cavity size is mildly reduced. Wall thickness is mildly increased. The systolic is normal. The estimated ejection fraction is 55% to 60%. Wall motion overall hyperdynamic but could not include a small area of subtle to mid distal septal hypokinesis versus artifact. Doppler parameters are consistent with abnormal left ventricular relaxation (grade 1 diastolic dysfunction). 4. Chest x-ray on 03/09/19 reads as no evidence for active cardiopulmonary disease. HISTORY OF PRESENT ILLNESS AND HOSPITAL COURSE: Mr. Guerrero is a 68-year-old male with past medical history of ALS, hypertension, hyperlipidemia, idiopathic cardiomyopathy and polyneuropathy, who presented to the emergency room on after a fall and resulting right ankle pain. Please see the history and physical by GABBY Cartagena for complete summary of the events leading up to this hospitalization. The patient's health had been gradually deteriorating due to his ALS and he had been having multiple falls at home. On the day of presentation, the patient was noted to have a fall with resulting pain and so presented to the emergency room. In the emergency room, the patient was noted to have normal- appearing labs and vitals. He had imaging as noted above and was noted to have a right tib-fib fracture and so was admitted by the hospitalist service. The patient was seen in consultation by Orthopedics and the plan was made for the patient to be taken to the operating room on 03/05/19. The patient was medically optimized for surgery. Of note, he was noted to have diminished sensation in the right lower extremity, although this is his baseline related to polyneuropathy. The patient ultimately was taken to the operating room on , during which time, he underwent an open reduction and internal fixation of the right tibia with Dr. Hernandez. There was minimal blood loss and the patient tolerated the operation well. The day after surgery, the patient was noted to be febrile up to 101.5. There was no obvious source of infection, though blood cultures were obtained. In totally, the patient had 8 bottles of blood cultures drawn, 2 of which were positive for Staph capitis. The patient was seen in consultation by Dr. Blood from Infectious Disease, who felt as though this represented contamination and not bacteremia. At that point, he recommended a chest x-ray to rule out aspiration pneumonia due to ALS, although recommended stopping any antibiotics if chest x-ray was negative. Chest x-ray was completed as noted above and was clear, so antibiotics were discontinued. The patient has been nonweightbearing on the right lower extremity per instructions from Orthopedics and so it has been determined that he will need a subacute rehab. He has been in the hospital awaiting a bed offer. Orthopedics has been following and at this point has cleared the patient for discharge with appropriate followup. Dr. Blood did follow up with the patient yesterday on 03/13/19 and the patient expressed concern to him that he was concerned about potential Lyme infection causing neurological decline. The patient has been on antibiotics in the past, although did not have any serological evidence of Lyme or symptoms of neuro Lyme. Ultimately, Dr. Blood recommended placing the patient on doxycycline and following up outpatient. The patient has not had any further fevers and as was expected, but the fever postoperatively was likely just reactive. Mr. Guerrero offers no complaints today. He is agreeable to going to rehab. PHYSICAL EXAMINATION: He is alert and oriented x4. He does have decreased sensation to the right lower extremity, which is his noted baseline, but no other significant neurological deficits. Heart has a regular rate and rhythm without murmurs, rubs, or gallops. Lungs are clear to auscultation without rhonchi, wheezes, or rubs. Abdomen: Soft, nontender. There is no edema. Physical exam is otherwise benign. Mr. Guerrero is stable for discharge. Most recent vitals are as follows: Temp 98.1, heart rate 95, respiratory rate 16, oxygen saturation 95% on room air, blood pressure 129/80. DISCHARGE MEDICATIONS: New medications: 1. Acetaminophen 650 mg p.o. q.6 hours p.r.n. fever or pain. 2. Flexeril 10 mg p.o. t.i.d. p.r.n. muscle spasm. 3. Doxycycline 100 mg p.o. b.i.d. 4. Lovenox 40 mg subcu daily x27 days. 5. Heparin flush via PICC. 6. Oxycodone 5 to 10 mg p.o. q.4 hours p.r.n. pain. 7. MiraLax 17 g p.o. daily. 8. Senna 1 tab p.o. at bedtime p.r.n. constipation. Continued medications: 1. Carvedilol 25 mg p.o. b.i.d. 2. Gabapentin 100 mg p.o. b.i.d. 3. Riluzole 50 mg p.o. b.i.d. 4. Amitriptyline 50 mg p.o. b.i.d. 5. Edaravone 30 mg IV (daily for 10 days, then 14 days off), previous treatment started on 02/27/19. 6. Quinapril 10 mg p.o. at bedtime. 7. IVIG every 3 weeks for 2 days (previous dose of 03/05/19 and 03/06/19). DISCHARGE PLAN: Mr. Guerrero will be discharged to subacute rehab. Activity will be nonweightbearing on the right lower extremity per Orthopedics. Diet will be regular as tolerated. Medications are noted above. The patient has been using oxycodone and Flexeril for pain, which he reports provide good relief. He should continue those as well as an appropriate bowel regimen. He should continue his IV infusions for ALS and he does have a PICC line in place, which was placed back in October. This PICC line is still functioning well and correct placement of this PICC was confirmed on the chest x-ray dated 03/09/19, so this PICC line is still fine to use going forward. He can continue his other usual medications as noted above. He has been placed on doxycycline per Dr. Blood and will need to follow up with him regarding duration of therapy. He will need to follow up with Dr. Hernandez 14 days postoperatively for suture removal (surgery was on 03/05/19). He will need to complete an additional 27 days of Lovenox for DVT prophylaxis. He should follow up with a provider upon arrival to [facility]. He should return to the emergency room or nearest hospital for any worsening of symptoms, shortness of breath, lightheadedness, dizziness, chest discomfort, high fevers, chills, night sweats, loss of consciousness, or any other worrisome signs or symptoms. DISCHARGE CONDITION: Stable. DISCHARGE DISPOSITION: [facility], [facility]. This is a summarized report of a complex medical history and hospital stay. For further details, please see the entire medical record. TIME SPENT: Approximately 45 minutes was spent on this discharge. LEEANNE ARANGO NP [id number]/[facility] #: [id number] YURI
[2019-03-14] MEDS: Enoxaparin(*) 40 MG/0.4 ML SYR SUBCUT SCH (14:03)
--- NOTE | 2019-03-14 15:42 | PN ---
Hospitalist Progress Note Date of Service: 03/14/19 Mr. Guerrero is medically stable for d/c to [facility] pending insurance auth. Discharge has been prepared for anticipation of d/c tomorrow.
[2019-03-14] MEDS: oxyCODONE TAB* 5 MG TAB PO PRN (22:33)
[2019-03-15] MEDS: Cyclobenzaprine TAB* 10 MG PO PRN (01:11)
[2019-03-15 07:45] VITALS: BP 125/87
[2019-03-15] MEDS: DOXYcycline CAP(*) 100 MG PO SCH (09:21)
[2019-03-15] MEDS: Carvedilol TAB* 25 MG PO SCH (09:21)
[2019-03-15] MEDS: Amitriptyline TAB* 50 MG PO SCH (09:22)
[2019-03-15] MEDS: RILUZOLE 50 MG PO SCH (09:22)
[2019-03-15] MEDS: Gabapentin CAP(*) 100 MG PO SCH (09:22)
== END 2019-03-15 11:10 | DRG 493 ==
LOC: ED 08:36 → SSU 12:47
PROVIDERS: ADMIT Hospitalist; ATTEND Hospitalist
PROC: 0QSG04Z Reposition Right Tibia with Internal Fixation Device, Open Approach (ICD-10-PCS; principal; 2019-03-05 07:30)
DX: S82.301A Unspecified fracture of lower end of right tibia, initial encounter for closed fracture (principal); G12.21 Amyotrophic lateral sclerosis; I42.8 Other cardiomyopathies; R65.10 Systemic inflammatory response syndrome (SIRS) of non-infectious origin without acute organ dysfunction; E87.1 Hypo-osmolality and hyponatremia; S82.831A Other fracture of upper and lower end of right fibula, initial encounter for closed fracture; W06.XXXA Fall from bed, initial encounter; I10 Essential (primary) hypertension; E78.5 Hyperlipidemia, unspecified; G60.8 Other hereditary and idiopathic neuropathies; R50.82 Postprocedural fever; Z66 Do not resuscitate; H10.9 Unspecified conjunctivitis; R35.0 Frequency of micturition; Y92.003 Bedroom of unspecified non-institutional (private) residence as the place of occurrence of the external cause; Z87.891 Personal history of nicotine dependence; Z79.01 Long term (current) use of anticoagulants
CPT/HCPCS: 36415; 71046; 76000; 80048; 80053; 80202; 81003; 83930; 85025; 85027; 86803; 87040; 87077; 87150; 87186; 87205; 93306; 99284; A9270-GY; J0690; J1100; J1459; J1644; J1650; J1885; J2250; J2270; J2405; J2704; J2997; J3010; J3370

== ENCOUNTER 2019-12-24 09:28 | Inpatient (IN) ==
[2019-12-24 11:00] LABS: Hematocrit 45 % (42-52); Mean Corpuscular HGB Conc 33 g/dL (31-36); Mean Corpuscular Hemoglobin 29 pg (27-31); Mean Corpuscular Volume 88 fL (80-94); Mean Platelet Volume 8.4 fL (7.4-10.4); Platelet Count 360 10^3/uL (150-450); Red Blood Count 5.17 10^6 /uL (4.18-5.48); Red Cell Distribution Width 16 % (10-15)
[2019-12-24 11:18] LABS: Albumin 4.2 g/dL (3.2-5.2); Albumin/Globulin Ratio 1.1 (1-3); Calcium 10.3 mg/dL (8.6-10.3); EGFR African American 200.1 (>60); EGFR Non-African American 165.4 (>60); Globulin 3.8 g/dL (2-4); Potassium 3.9 mmol/L (3.5-5.0); Total Bilirubin 0.4 mg/dL (0.2-1.0)
[2019-12-24] MEDS ORDERED: EDARAVONE IV SCH (13:00)
[2019-12-24] MEDS ORDERED: PIGGYBACK IV SCH (13:00)
[2019-12-24] MEDS: NS 0.9% w/ 20 Meq KCL 1000 ml 1,000 ML IV SCH ×2 (13:26→19:51)
[2019-12-24] MEDS ORDERED: NS IV ONE (14:00)
[2019-12-24] MEDS ORDERED: KCL IV ONE (14:00)
[2019-12-24 17:42] VITALS: BP 107/71
[2019-12-24] MEDS: Morphine 2 MG/ML SYRINGE IV PRN ×2 (19:41→21:40)
[2019-12-24] MEDS ORDERED: Lorazepam PYXIS KEY PRN (20:23)
[2019-12-25] MEDS: Morphine 2 MG/ML SYRINGE IV PRN ×3 (00:52→12:07)
[2019-12-25] MEDS: LORazepam 2 mg VIAL 1 ml IV PUSH PRN ×2 (06:04→12:08)
[2019-12-25] MEDS: NS 0.9% w/ 20 Meq KCL 1000 ml 1,000 ML IV SCH (06:08)
[2019-12-25] MEDS ORDERED: NS 0.9% 1000 ml BAG 1,000 ML IV SCH (12:00)
== END 2019-12-25 14:00 | disposition expired | DRG 189 ==
LOC: ED 09:28 → ICU 12:04 → MED 17:24
PROVIDERS: ADMIT Internal Medicine; ATTEND Internal Medicine